=== PATIENT | female | born 1940 | race Caucasian/White ===

== ENCOUNTER → 2023-10-19 13:05 | Outpatient (REF) | payer MEDICARE, OTHER, SELFPAY ==
[2023-10-19 16:23] LABS: Blood Urea Nitrogen 19 mg/dl (7-17); Calcium 9.9 mg/dl (8.4-10.2); Carbon Dioxide 28 mmol/L (22-30); Chloride 100 mmol/L (98-107); Glucose 87 mg/dl (70-99); Potassium 4.2 mmol/L (3.5-5.1); Sodium 136 mmol/L (135-145); eGFR > 60.00
== END ==
LOC: HWRCS 13:05
PROVIDERS: ATTENDING PHYSICIAN Internal Medicine Cardiovascular Disease; FAMILY PHYSICIAN Family Medicine
DX: E87.1 Hypo-osmolality and hyponatremia (principal)
CPT/HCPCS: 36415; 80048; 93306

== ENCOUNTER 2023-10-25 06:01 | Inpatient (IN) | payer MEDICARE, OTHER, SELFPAY ==
--- NOTE | 2023-10-03 08:58 | CM ---
Patient is scheduled for an elective R TKR on 10/25/23. Spoke with patient's prior to surgery via telephone. Introduced role of Orthopedic Navigator. He reports that he and patient live in a multi story home. There are five (2-2-1) steps to
enter and a stair glide on the steps to the second floor (which she uses). She currently requires assistance with the steps to enter/exit her home and getting in and out of the car but otherwise functions independently. She uses a rollator (she has
two) and also has a cane, rolling walker, shower seat and toilet rails. She has had VN services. PCP is Dr. Benitez Zimmerman.
Discussed orthopedic program and post surgical plans. Reviewed anticipated length of stay and that goal is for her to return home at discharge. Also reviewed outpatient PT. He is in agreement with tentative plan and states that he will be home and
can assist patient if needed. She will benefit from VN services. Options and PAC data reviewed; selects VN.
Patient will complete online education.
Plan: Orthopedic Navigator will remain available to assist with the care of patient and will reassess discharge needs after surgery.
[2023-10-05 09:01] VITALS: BMI 23.6
[2023-10-05 10:40] LABS: Hematocrit 39.8 % (37.0-47.0); Hemoglobin 13.9 g/dL (12.0-16.0); Mean Corp Hgb Conc. 34.9 g/dL (33.0-37.0); Mean Corpuscular Volume 80.1 fL (81.0-99.0); Mean Platelet Volume 10.5 fL (7.4-10.4); Platelet Count 297 10^3/uL (130-400); Red Blood Cell Count 4.97 10^6/uL (4.20-5.40); Red Cell Dist. Width 14.1 % (11.5-14.5); White Blood Cell Count 6.1 10^3/uL (4.8-10.8)
[2023-10-05 12:12] LABS: ALT (SGPT) 16 U/L (0-35); AST (SGOT) 25 U/L (14-36); Albumin 4.3 g/dl (3.5-5.0); Alkaline Phosphatase 48 U/L (38-126); Blood Urea Nitrogen 19 mg/dl (7-17); Calcium 9.9 mg/dl (8.4-10.2); Carbon Dioxide 28 mmol/L (22-30); Chloride 92 mmol/L (98-107); Estimated Creatinine Clearance 52 ml/min; Glucose 77 mg/dl (70-99); Potassium 4.1 mmol/L (3.5-5.1); Sodium 125 mmol/L (135-145); Total Bilirubin 0.6 mg/dl (0.2-1.3); eGFR > 60.00
[2023-10-05 12:19] LABS: Glycohemoglobin (HgbA1c) 5.3 % (4.0-5.6)
[2023-10-05 15:07] VITALS: BMI 23.6
--- NOTE | 2023-10-09 12:37 | W.PN.UPDATE ---
Update Note
Progress Note Update
EKG inferior infarct with increased risk stratification and possible symptoms with exertion--will require cardiac clearance.
Na+ 125--fluid restrict and d/c HCTZ-change to Lasix for now and she is advised to review with PCP and cardiology--we will repeat Na+
[2023-10-25] VITALS (12 sets, daily range): BP systolic 112–163; BP diastolic 56–98; PULSE 61; O2SAT 96; BMI 23.6
[2023-10-25] MEDS: NORMOSOL-R 1000 IV (07:07)
[2023-10-25] MEDS: CELEBREX 200 MG PO (07:16)
[2023-10-25] MEDS: TYLENOL 650 MG PO ×4 (07:17→21:29)
[2023-10-25] MEDS: ROXICODONE 5 MG PO ×2 (10:04→14:09)
[2023-10-25] MEDS: NSS 1000 IV (10:05)
--- NOTE | 2023-10-25 10:52 | PTCARENOTE ---
Pt arrived to 2 [facility] s/p R TKR. Pt R knee dressing with small amount of drainage, jadiel wrap over top. IVF infusing, on 2L NC satting 97%. Pt AAOx2, confused with time; patient at bedside states she has difficulty with remembering the year.
Pt and oriented to call ward and room, bed locked and in lowest position, call ward within reach.
[2023-10-25] MEDS: ANCEF 5 IV (17:05)
[2023-10-25] MEDS: SALAGEN 5 MG PO ×2 (17:06→21:34)
[2023-10-25] MEDS: ASPIRIN 325 MG PO (17:06)
[2023-10-25] MEDS: ROXICODONE 2.5 MG PO (19:37)
[2023-10-25] MEDS: SENOKOT 17.1999999999999993 MG PO (21:27)
[2023-10-25] MEDS: DECADRON 4 MG PO (21:27)
[2023-10-25] MEDS: KLONOPIN 1 MG PO (21:27)
[2023-10-25] MEDS: COLACE 100 MG PO (21:28)
[2023-10-25] MEDS: COREG 6.25 MG PO (21:29)
[2023-10-25] MEDS: BACTROBAN 2% OINTMENT 1 APPLIC NASAL (21:34)
[2023-10-25] MEDS: NEURONTIN 300 MG PO (21:35)
[2023-10-25] MEDS: PRAVACHOL 40 MG PO (21:35)
[2023-10-25] MEDS: TRICOR 145 MG PO (21:35)
[2023-10-25] MEDS: DESYREL 50 MG PO (21:36)
[2023-10-25] MEDS: TORADOL 15 MG IV (21:37)
[2023-10-26] MEDS: ANCEF 5 IV (00:32)
[2023-10-26] MEDS: TYLENOL 650 MG PO ×5 (00:34→20:13)
[2023-10-26] MEDS: TYLENOL PO (04:09)
--- NOTE | 2023-10-26 06:11 | PTCARENOTE ---
Found pt awake and confused pulling down aquacell dressing. large amount of drainage noted. reinforced dressiing with ABD and medipore tape. education provided to pt and pt acknowledged.
[2023-10-26 06:30] LABS: Blood Urea Nitrogen 22 mg/dl (7-17); Calcium 8.7 mg/dl (8.4-10.2); Carbon Dioxide 22 mmol/L (22-30); Chloride 101 mmol/L (98-107); Estimated Creatinine Clearance 41 ml/min; Glucose 114 mg/dl (70-99); Potassium 4.2 mmol/L (3.5-5.1); Sodium 128 mmol/L (135-145); eGFR > 60.00
--- NOTE | 2023-10-26 07:43 | W.PN.UPDATE ---
Update Note
Progress Note Update
I came to see pt but she was sleeping soundly so I did not wake her.
[2023-10-26 08:10] VITALS: BP 101/43
[2023-10-26] MEDS: CELEBREX 200 MG PO (08:24)
[2023-10-26] MEDS: ASPIRIN 325 MG PO (08:25)
[2023-10-26] MEDS: SALAGEN 5 MG PO ×3 (08:25→21:38)
[2023-10-26] MEDS: SENOKOT 17.1999999999999993 MG PO ×2 (08:25→20:13)
[2023-10-26] MEDS: KLONOPIN 1 MG PO ×2 (08:25→20:13)
[2023-10-26] MEDS: DECADRON 4 MG PO ×2 (08:25→20:11)
[2023-10-26] MEDS: COLACE 100 MG PO ×2 (08:25→20:11)
--- NOTE | 2023-10-26 08:25 | CM ---
Addendum entered by Letty Torres 10/26/23 11:41:
Patient worked with PT and OT. Recommendation, at this time, is for SNF rehab. Met with patient and at bedside to discuss. They are in agreement. Options and PAC data reviewed. requested referrals to [facility] and [facility].
Referral and completed PASRR sent to [facility] and [facility] through [employer].
Message was received from Liz at [facility] stating that they can offer a bed.
Original Note:
Reviewed chart and held rounds with PT, OT and nursing. Patient admitted as planned for elective R TKR. Met with patient and her at bedside. Confirmed information previously obtained for assessment. Also discussed discharge plans. The plan,
at this time, is for patient to return home at discharge. Her will be able to assist if needed. Reviewed VN services including start of care (tentatively 10/26), services to be ordered (PT, OT, SN) and frequency/duration of services. Options
list provided and PAC data reviewed. They select VN.
Patient has a rolling walker, shower seat and a cane at home. She will need a commode issued if returning home at discharge.
VN referral was completed and sent to [facility] through [employer] with request for start of care on 10/26. Confirmation received of their ability to accept case. route delivery clerk to fax discharge instructions to [facility] when complete.
Patient will use [facility] pharmacy for discharge prescriptions.
[2023-10-26] MEDS: COREG 6.25 MG PO ×2 (08:26→21:37)
[2023-10-26] MEDS: BACTROBAN 2% OINTMENT 1 APPLIC NASAL ×2 (08:26→20:10)
[2023-10-26] MEDS: TORADOL 15 MG IV ×2 (08:28→20:13)
[2023-10-26] MEDS: ROXICODONE 5 MG PO (08:34)
[2023-10-26 10:21] VITALS: BP 135/82; BP 140/56; PULSE 62; O2SAT 100
[2023-10-26 11:33] VITALS: BP 138/52; PULSE 59; O2SAT 99
--- NOTE | 2023-10-26 11:36 | W.PN.ORTHO ---
Today's Communication / Plan
-
d/c to SNF when stable due to exacerbation of cognitive and functional deficits due to metabolic encephalopathy secondary to anesthesia and pain meds
Assessment
.
Distal Motor Intact: Yes
Dressing:
Clean, dry and intact.
Assessment:
Hyponatremia/hypotension--NSS IVF, + Midodrine x1 dose
Plan
.
Surgery / Date: R EDILBERTO Arteaga 10/25/23
DVT Prophylaxis: Aspirin
Activity:
Out of bed.
PT/OT
Discharge Plan: SNF
Subjective
.
.:
Patient resting comfortably.
Vital Signs and Labs
.
Vital Signs and Labs:
Lab Results
10/05/23 08:41
10/26/23 04:38
Temp Pulse Resp BP Pulse Ox
97.7 F 59 17 101/43 93
10/26/23 08:10 10/26/23 08:10 10/26/23 08:10 10/26/23 08:10 10/26/23 08:19
Non-invasive Hgb result: 11.1
Physical Exam
-
HEENT: No pallor, cyanosis, or jaundice. Throat clear.
NECK: Supple. No JVD.
RESPIRATORY: Lungs clear to auscultation.
CVS: S1, S2 normal. RRR.� No murmur, rub or gallop.
ABDOMEN: Soft, non-tender. No distension. BS+/normal.
EXTREMITIES: strength equal, no calf pain with palpation
BOOT MAKER: AOx3. No focal deficits. patternmaker plastics grossly intact
-cognitive and functional deficits
[2023-10-26] MEDS: ProAmatine 5 MG PO (11:59)
[2023-10-26] MEDS: NSS 500 IV (12:00)
[2023-10-26 15:35] VITALS: BP 138/78
[2023-10-26 19:34] VITALS: BP 125/55
[2023-10-26] MEDS: NEURONTIN 300 MG PO (21:38)
[2023-10-26] MEDS: PRAVACHOL 40 MG PO (21:38)
[2023-10-26] MEDS: DESYREL 50 MG PO (21:39)
[2023-10-26] MEDS: TRICOR 145 MG PO (21:39)
[2023-10-26 23:40] VITALS: BP 125/50
[2023-10-27] MEDS: TYLENOL PO (00:53)
[2023-10-27] MEDS: TYLENOL 650 MG PO ×5 (03:29→21:39)
[2023-10-27 07:43] VITALS: BP 122/62
--- NOTE | 2023-10-27 08:20 | CM ---
Addendum entered by Letty Torres 10/27/23 11:28:
Met with patient, , son and [id number] after therapy. Discussed continued recommendation for SNF rehab and also that call back has no been received from [facility]. They are in agreement with [facility].
Spoke with Liz at [facility]. She confirms their ability to accept patient on Monday, 10/27. Weekend spring encaser to call Liz ([phone]) to confirm admission.
Report: [phone]

Patient will need stretcher transport due to baseline cognitive deficits; medical necessity and transport forms completed and on chart.
Original Note:
Reviewed chart and held rounds with PT, OT and nursing. Met with patient at bedside. Discussed discharge plans. The recommendation continues to be for patient to go to a SNF for rehab. Patient and have selected [facility] and [facility].
[facility] is able to offer a bed. Still waiting for response from [facility]. Will follow up with admissions today.
Precert is not required for transfer to SNF.
[2023-10-27] MEDS: COLACE 100 MG PO ×2 (09:01→21:38)
[2023-10-27] MEDS: COREG 6.25 MG PO ×2 (09:02→21:39)
[2023-10-27] MEDS: SALAGEN 5 MG PO ×3 (09:02→21:41)
[2023-10-27] MEDS: SENOKOT 17.1999999999999993 MG PO ×2 (09:02→21:37)
[2023-10-27] MEDS: DECADRON 4 MG PO ×2 (09:03→21:38)
[2023-10-27] MEDS: KLONOPIN 1 MG PO ×2 (09:03→21:39)
[2023-10-27] MEDS: CELEBREX 200 MG PO (09:03)
[2023-10-27] MEDS: ASPIRIN 325 MG PO (09:03)
[2023-10-27 10:24] VITALS: BP 123/48; BP 126/49; PULSE 76; O2SAT 98
[2023-10-27 11:28] VITALS: BP 120/50; PULSE 70; O2SAT 99
--- NOTE | 2023-10-27 12:03 | W.PN.ORTHO ---
Today's Communication / Plan
-
d/c to SNF when stable due to exacerbation of cognitive and functional deficits due to anesthesia and pain meds
Assessment
.
Distal Motor Intact: Yes
Dressing:
Clean, dry and intact.
Assessment:
Hyponatremia/hypotension--NSS IVF, + Midodrine x1 dose-BP improved-recheck Na+ level
Plan
.
Surgery / Date: R EDILBERTO Arteaga 10/25/23
DVT Prophylaxis: Aspirin
Activity:
Out of bed.
PT/OT
Discharge Plan: SNF
Subjective
.
.:
Patient resting comfortably.
Vital Signs and Labs
.
Vital Signs and Labs:
Lab Results
10/05/23 08:41
10/26/23 04:38
Temp Pulse Resp BP Pulse Ox
97.7 F 61 16 122/62 96
10/27/23 07:43 10/27/23 07:43 10/27/23 07:43 10/27/23 07:43 10/27/23 07:43
Non-invasive Hgb result: 11.2
Physical Exam
-
HEENT: No pallor, cyanosis, or jaundice. Throat clear.
NECK: Supple. No JVD.
RESPIRATORY: Lungs clear to auscultation.
CVS: S1, S2 normal. RRR.� No murmur, rub or gallop.
ABDOMEN: Soft, non-tender. No distension. BS+/normal.
EXTREMITIES: strength equal, no calf pain with palpation
LEAD BI DEVELOPER: AOx3. No focal deficits. paralegal supervisor grossly intact
[2023-10-27 13:16] LABS: Sodium 129 mmol/L (135-145)
[2023-10-27 14:53] VITALS: BP 131/63; PULSE 62
--- NOTE | 2023-10-27 14:55 | PN.CDI ---
CDI
- -
CDI:
Physician Documentation Request
Admit Date: 10/25/23 06:01
Dear Doctor Chandler,
Patient admitted with right knee osteoarthritis s/p right total knee arthroplasty.
10/26 PN, 'd/c to SNF when stable due to exacerbation of cognitive and functional deficits due to anesthesia and pain meds.'
10/25 PCN,'Found pt awake and confused pulling down Aquacel dressing.'
10/25 CM note, 'The plan, at this time, is for patient to return home at discharge....Recommendation, at this time, is for SNF rehab.
Based on the above, please clarify in the Progress Notes and Discharge Summary which, if any of the following, is the most likely etiology of the confusion:
Toxic metabolic encephalopathy due to anesthesia and pain medication.
Metabolic encephalopathy due to anesthesia and pain medication
Other
Use of terms such as suspected, likely, concern for, or probable (associated with a specific diagnosis that is being evaluated, monitored, or treated as if it exists) are acceptable and can be coded in the inpatient setting, when documented at the
time of discharge.
Thank you,
Sheron WADDELL,RN,CCDS
CDI Specialist
Available via [employer] text
Please use your independent medical judgment in providing your response.
[2023-10-27 15:50] VITALS: BP 131/63
[2023-10-27] MEDS: DESYREL 50 MG PO (21:39)
[2023-10-27] MEDS: NEURONTIN 300 MG PO (21:40)
[2023-10-27] MEDS: PRAVACHOL 40 MG PO (21:40)
[2023-10-27] MEDS: TRICOR 145 MG PO (21:41)
[2023-10-27] MEDS: ROXICODONE 5 MG PO (22:09)
[2023-10-27 23:21] VITALS: BP 144/65
[2023-10-28] MEDS: TYLENOL PO
[2023-10-28] MEDS: TYLENOL 650 MG PO ×5 (04:08→21:21)
[2023-10-28 07:09] VITALS: BP 154/72
--- NOTE | 2023-10-28 08:54 | W.PN.ORTHO ---
Today's Communication / Plan
-
Patient doing/feeling well this AM. More cognitively aware in my opinion- answers all questions appropriately
Rechecking Na this AM, as yesterday was 129
Dispo plan is SNF ([facility] vs [facility]) when medically stable, appreciate CM
Continue ASA 325mg x 4 weeks for DVT prophylaxiss, then can resume 81mg
WBAT RLE on walker
PT/OT
Dressing to remain 7-10 days
Please only use narcotics if absolutley necessary to avoid delirium
Will follow- if NA normalizes will give OK for D/c
Assessment
.
Distal Motor Intact: Yes
Dressing:
Clean, dry and intact. Aquacel in place right knee
Assessment:
POD#3 Right TKA
Overall doing/feeling well. More cognitively aware this AM.
DNVI RLE
Plan
.
Surgery / Date: Right TKA November 09 (Chandler)
DVT Prophylaxis: Aspirin
Activity:
Out of bed. WBAT on walker
PT/OT
Discharge Plan: SNF
Discharge Information:
[facility] vs. [facility]
Subjective
.
.:
Patient resting comfortably. Mild pain right knee
Vital Signs and Labs
.
Vital Signs and Labs:
Lab Results
10/05/23 08:41
Temp Pulse Resp BP Pulse Ox
98.3 F 69 17 154/72 94
10/28/23 07:09 10/28/23 07:09 10/28/23 07:09 10/28/23 07:09 10/28/23 07:09
Non-invasive Hgb result: 11.2
[2023-10-28] MEDS: SALAGEN 5 MG PO ×3 (10:31→22:53)
[2023-10-28] MEDS: COLACE PO ×3 (10:31→19:22)
[2023-10-28] MEDS: SENOKOT PO ×3 (10:32→19:22)
[2023-10-28] MEDS: ASPIRIN 325 MG PO (10:32)
[2023-10-28] MEDS: KLONOPIN 1 MG PO ×2 (10:32→21:21)
[2023-10-28] MEDS: DECADRON 4 MG PO (10:32)
[2023-10-28] MEDS: CELEBREX 200 MG PO (10:32)
[2023-10-28] MEDS: COREG 6.25 MG PO ×2 (10:32→21:21)
[2023-10-28 11:53] LABS: ALT (SGPT) 12 U/L (0-35); AST (SGOT) 20 U/L (14-36); Albumin 3.2 g/dl (3.5-5.0); Alkaline Phosphatase 44 U/L (38-126); Blood Urea Nitrogen 29 mg/dl (7-17); Calcium 9.2 mg/dl (8.4-10.2); Carbon Dioxide 29 mmol/L (22-30); Chloride 99 mmol/L (98-107); Estimated Creatinine Clearance 36 ml/min; Glucose 84 mg/dl (70-99); Potassium 4.6 mmol/L (3.5-5.1); Sodium 130 mmol/L (135-145); Total Bilirubin 0.5 mg/dl (0.2-1.3); Total Protein 5.8 g/dl (6.3-8.2)
[2023-10-28 14:10] VITALS: BP 121/75; PULSE 75
[2023-10-28 15:37] VITALS: BP 121/75
[2023-10-28] MEDS: DESENEX/MITRAZOL/ZEASORB 1 APPLIC TOPICAL ×2 (17:19→21:22)
[2023-10-28] MEDS: DESYREL 50 MG PO (21:21)
[2023-10-28] MEDS: PRAVACHOL 40 MG PO (21:21)
[2023-10-28] MEDS: TRICOR 145 MG PO (21:22)
[2023-10-28] MEDS: NEURONTIN 300 MG PO ×2 (21:22)
[2023-10-29 00:13] VITALS: BP 120/65
[2023-10-29] MEDS: TYLENOL PO ×2 (00:26→04:27)
[2023-10-29 07:28] LABS: ALT (SGPT) 11 U/L (0-35); AST (SGOT) 17 U/L (14-36); Albumin 2.8 g/dl (3.5-5.0); Alkaline Phosphatase 42 U/L (38-126); Blood Urea Nitrogen 32 mg/dl (7-17); Calcium 9.1 mg/dl (8.4-10.2); Carbon Dioxide 27 mmol/L (22-30); Chloride 103 mmol/L (98-107); Estimated Creatinine Clearance 33 ml/min; Glucose 83 mg/dl (70-99); Potassium 4.8 mmol/L (3.5-5.1); Sodium 132 mmol/L (135-145); Total Bilirubin 0.4 mg/dl (0.2-1.3); Total Protein 5.2 g/dl (6.3-8.2); eGFR 50.48
[2023-10-29 07:35] VITALS: BP 141/61
[2023-10-29] MEDS: CELEBREX 200 MG PO (07:54)
[2023-10-29] MEDS: ASPIRIN 325 MG PO (07:55)
[2023-10-29] MEDS: SENOKOT PO (07:55)
[2023-10-29] MEDS: KLONOPIN 1 MG PO (07:55)
[2023-10-29] MEDS: TYLENOL 650 MG PO (07:55)
[2023-10-29] MEDS: COREG 6.25 MG PO (07:55)
[2023-10-29] MEDS: SALAGEN 5 MG PO (07:55)
[2023-10-29] MEDS: COLACE PO (07:55)
[2023-10-29] MEDS: DESENEX/MITRAZOL/ZEASORB 1 APPLIC TOPICAL (07:56)
--- NOTE | 2023-10-29 09:21 | W.PN.ORTHO ---
Today's Communication / Plan
-
Patient doing/feeling well this AM. Carried on with very appropriate and directed convo this AM
Na up to 132
Dispo plan is SNF ([facility]) when medically stable (today?), appreciate CM
Continue ASA 325mg x 4 weeks for DVT prophylaxiss, then can resume 81mg
WBAT RLE on walker
PT/OT
Dressing to remain 7-10 days, was changed this AM
Please only use narcotics if absolutely necessary to avoid delirium
Follow up in 2 weeks for staple removal
Assessment
.
Distal Motor Intact: Yes
Dressing:
Clean, dry and intact. Aquacel saturated
Assessment:
POD#4 Right TKA
Overall doing well
Calf soft, nontender
Plan
.
Surgery / Date: Right TKA November 09 (Chandler)
DVT Prophylaxis: Aspirin
Activity:
Out of bed. WBAT RLE on walker
PT/OT
Discharge Plan: SNF
Discharge Information:
[facility]
Subjective
.
.:
Patient seated bedside with breakfast. Carried on with very appropriate conversation this AM
Vital Signs and Labs
.
Vital Signs and Labs:
Lab Results
10/05/23 08:41
10/29/23 06:30
Temp Pulse Resp BP Pulse Ox
98.5 F 61 18 141/61 96
10/29/23 07:35 10/29/23 07:35 10/29/23 07:35 10/29/23 07:35 10/29/23 07:35
Non-invasive Hgb result: 11.2
--- NOTE | 2023-10-29 09:25 | W.DS.TRANS ---
DC Summary - Executive Sales Assistant
-
Discharge Instructions:
Sleep Apnea Risk Low
Discharge Diagnosis/Procedures Right knee OA s/p TKA
Diet No restrictions
Activity With assistance,As tolerated,With Walker
Driving Restrictions Not until seen by your Dr
Bathing Restrictions OK to Shower
Wound Care Dressing to remain 7-10 days
Instructions:
Stand-Alone Forms: Total Hip/Knee Replacement D/C
Changes to Home Medications: No
Discharge Medications:
DC Medications w/original date entered in [employer]
Salonpas (lidocaine) 1 unit topical PRN PRN pain 10/03/23
aspirin 81 mg tablet 81 mg PO DAILY Blood Clot Prevention/Tx 10/03/23
carvedilol 12.5 mg tablet 6.25 mg PO BID Blood Pressure 10/03/23
cholecalciferol (vitamin D3) 25 mcg (1,000 unit) tablet (Vitamin D3) 25 mcg PO DAILY Supplement 10/03/23
clonazepam 1 mg tablet 1 mg PO TID anxiety 10/03/23
fenofibrate 1 tab PO HS High Cholesterol 10/03/23
naproxen 500 mg tablet 500 mg PO PRN PRN pain 10/03/23
pilocarpine HCl 5 mg tablet 5 mg PO TID secretions 10/03/23
pravastatin 40 mg tablet 40 mg PO HS High Cholesterol 10/03/23
trazodone 50 mg tablet 50 mg PO HS sleep 10/03/23
turmeric 500 mg PO DAILY Supplement 10/03/23
mupirocin 2 % topical ointment 1 applic topical BID infection prevention #1 tube 10/05/23
nystatin 100,000 unit/gram topical powder 1 applic topical BID candidal #30 grams 10/05/23
furosemide 20 mg tablet 20 mg PO DAILY #30 tabs 10/09/23
aspirin 325 mg tablet 325 mg PO DAILY Blood clot prevention/tx #30 tabs 10/28/23
celecoxib 200 mg capsule 200 mg PO DAILY Pain #30 caps 10/28/23
docusate sodium 100 mg capsule 100 mg PO BID Constipation #30 caps 10/28/23
gabapentin 300 mg capsule 300 mg PO HS Pain #30 caps 10/28/23
oxycodone 5 mg tablet 5 mg PO Q4HPRN PRN moderate pain #30 tabs 10/28/23
Home Medication Changes
Pending Results: No
--- NOTE | 2023-10-29 09:35 | CM ---
Reviewed chart notes. Patient for discharge today to [facility].
Call report to : [phone]
Fax report to: [phone]
[2023-10-29 11:30] VITALS: BP 134/69
== END 2023-10-29 12:51 | DRG 469 ==
LOC: 2 SOUTH 06:01
PROVIDERS: Physician Assistant Medical; Physician Assistant Surgical; ADMITTING PHYSICIAN Orthopaedic Surgery; FAMILY PHYSICIAN Family Medicine
PROC: 0SRC0J9 Replacement of Right Knee Joint with Synthetic Substitute, Cemented, Open Approach (ICD-10-PCS; 2023-10-25)
DX: M17.11 Unilateral primary osteoarthritis, right knee (principal); G92.8 Other toxic encephalopathy; E87.1 Hypo-osmolality and hyponatremia; I10 Essential (primary) hypertension; E78.5 Hyperlipidemia, unspecified; F41.9 Anxiety disorder, unspecified; C67.9 Malignant neoplasm of bladder, unspecified; M81.0 Age-related osteoporosis without current pathological fracture; R91.8 Other nonspecific abnormal finding of lung field; G47.00 Insomnia, unspecified; R41.89 Other symptoms and signs involving cognitive functions and awareness; I95.81 Postprocedural hypotension; T40.2X5A Adverse effect of other opioids, initial encounter; Y92.239 Unspecified place in hospital as the place of occurrence of the external cause; Z87.891 Personal history of nicotine dependence
CPT/HCPCS: 36415; 73560; 80048; 80053; 83036; 84295; 85027; 87070; 93005; 97110; 97116; 97162; 97167; 97530; 97535; C1713; C1776

== ENCOUNTER 2023-11-15 23:08 | Inpatient (IN) | payer MEDICARE, OTHER, SELFPAY ==
[2023-11-15 20:43] VITALS: BP 155/64
[2023-11-15 20:47] VITALS: BP 155/64
[2023-11-15 20:50] VITALS: BMI 23.6
[2023-11-15 21:17] LABS: % Basophils 0.9 % (0-2); % Eosinophils 5.8 % (0-6); % Immature Granulocytes 0.2 % (0-0.5); % Lymphocytes 38.4 % (20.5-51.1); % Monocytes 12.1 % (1.7-9.3); % Neutrophils 42.6 % (42.2-75.2); Absolute Basophils 0.1 10^3/uL (0-0.2); Absolute Eosinophils 0.3 10^3/uL (0-0.7); Absolute Lymphocytes 2.1 10^3/uL (1.2-3.4); Absolute Monocytes 0.7 10^3/uL (0.1-0.6); Absolute Neutrophils 2.3 10^3/uL (1.4-6.5); Hematocrit 25.5 % (37.0-47.0); Hemoglobin 8.6 g/dL (12.0-16.0); Mean Corp Hgb Conc. 33.7 g/dL (33.0-37.0); Mean Corpuscular Hgb 28.4 pg (27.0-31.0); Mean Corpuscular Volume 84.2 fL (81.0-99.0); Mean Platelet Volume 9.5 fL (7.4-10.4); Nucleated Red Blood Cells % 0 %; Platelet Count 400 10^3/uL (130-400); Red Blood Cell Count 3.03 10^6/uL (4.20-5.40); Red Cell Dist. Width 18.6 % (11.5-14.5); White Blood Cell Count 5.4 10^3/uL (4.8-10.8)
[2023-11-15 21:29] LABS: Lactic Acid 0.7 mmol/L (0.7-2.0)
[2023-11-15 21:33] LABS: ALT (SGPT) < 10 U/L (0-35); AST (SGOT) 19 U/L (14-36); Alkaline Phosphatase 60 U/L (38-126); Blood Urea Nitrogen 12 mg/dl (7-17); Carbon Dioxide 26 mmol/L (22-30); Chloride 97 mmol/L (98-107); Estimated Creatinine Clearance 61 ml/min; Glucose 89 mg/dl (70-99); Potassium 3.9 mmol/L (3.5-5.1); Sodium 129 mmol/L (135-145); Total Bilirubin 0.6 mg/dl (0.2-1.3); Total Protein 5.8 g/dl (6.3-8.2); eGFR > 60.00
--- NOTE | 2023-11-15 21:50 | ED.GENMED ---
History of Present Illness
General
Chief Complaint: Musculo-Skeletal Complaint
Source: patient
Exam Limitations: none
Time Seen by Provider: 11/15/23 20:49
Travel History
Have you had any contact with someone who has COVID-19?: No
Do you have any symptoms of coronavirus? Fever > 100 degrees, chills, cough, shortness of breath, sore throat, loss of taste or smell, muscle aches, or headache?: No
History of Present Illness
History of Present Illness:
This is a 83 year old female that comes in with c/o right knee infection. States that she was told to come to the ER by Dr. Arteaga. States that she had a right knee replacement on October 24. states that yesterday they were seen in the office and her
incision has been draining since the surgery. States that he had her straighten her knee and it just poured out. States that he got a vile of the fluid and it was sent for culture. States that she was called and told to come to the ER as there is
infection and he will take her to the OR on Monday and clean this out. Denies any fever, chills, chest pain, SOB, abd pain, nausea, vomiting, diarrhea, headache, dizziness, urinary burning.
Past History
Past History
ED Past Medical History: Cancer (Bladder CA), HTN, Psychiatric (Depression, panic disorder) and Other (Numbness)
ED Past Surgical History: Gynecological (Ovarian cyst, Uterine fibroid removed, oophorectomy), Orthopedic (Spacer in back. right knee replacement), Tonsilectomy, Urological (Bladder surgery) and Other (cataracts, Left biopsy)
Social History
Tobacco: Former smoker
Alcohol: None
Personal:
Living: with family
Review of Systems
Review of Systems
All Other Systems: ROS reviewed and negative except as documented in HPI and ROS
Constitutional: Reports no symptoms; Denies fever or chills
EENT: Reports no symptoms
Respiratory: Reports no symptoms; Denies cough or trouble breathing
Cardiac: Reports no symptoms; Denies chest pain
ABD/GI: Reports no symptoms; Denies abdominal pain, nausea, vomiting or diarrhea
: Reports no symptoms; Denies dysuria, frequency or urgency
Musculoskeletal: Reports no symptoms
Skin: Reports other (Redness right knee with drainage)
Neurological: Reports no symptoms; Denies dizzy or headache
Psychiatric: Reports no symptoms
Phy Exam
General Physical Exam
General Presentation: no apparent distress
General age: appears stated age
General Skin: warm and dry
General Habitus: elderly
General Mental: alert
General Hydration: appears well hydrated
ENT Exam
ENT Exam: TM's normal, pharynx normal and neck supple
Eye Exam
Eye Exam: EOMI
Cardiovascular Exam
Cardiovascular Exam: regular rate/rhythm and normal peripheral pulses
Pulmonary Exam
Pulmonary Exam: lungs clear, no respiratory distress, no rales, chest non tender, no crackles, no rhonchi, no wheezing and no cough
Gastrointestinal Exam
Gastrointestinal Exam: normal bowel sounds, non tender, soft, no organomegaly, no pulsatile mass and non distended
Musculoskeletal Exam
Musculoskeletal Exam: other (right leg swelling +2 pitting edema of lower leg, Redness around the right knee incision with drainage noted)
Skin Exam
Skin Exam: normal color, warm/dry, no petechia and redness (Right knee)
Psychiatric Exam
Psychiatric Exam: normal mood/affect
Course
Orders/Labs/Results
Orders:
Orders
11/15/23 21:07
Complete Blood Count/With Diff Urgent
Comprehensive Metabolic Panel Urgent
Lactic Acid Q4H
Comment: ON ICE, CANCEL 2ND ORDER IF FIRST LACTIC ACID LEVEL <2
Blood Culture Q30M
RAVEN Source: Blood/Venous
Specimen Description:
Comment: FROM 2 SEPARATE SITES
Blood Culture Q30M
RAVEN Source: Blood/Venous
Specimen Description:
Comment: FROM 2 SEPARATE SITES
11/15/23 21:49
CR Knee - Right 1 Or 2 Views Routine
Comment:
Reason For Exam: knee infection
11/15/23 21:53
Type+Screen Routine
PT/INR [Prothrombin Time] Routine
11/15/23 22:04
Consult Orthopedic [ORTHOPEDIC CONSULT] Urgent
Consulting Provider: Markus Arteaga
Was physician already notified: Yes
11/16/23 01:15
Lactic Acid Q4H
Comment: ON ICE, CANCEL 2ND ORDER IF FIRST LACTIC ACID LEVEL <2
Abnormal Lab Results
11/15/23
21:07
RBC 3.03 L 10^6/uL
(4.20-5.40)
Hgb 8.6 L g/dL
(12.0-16.0)
Hct 25.5 L %
(37.0-47.0)
RDW 18.6 H %
(11.5-14.5)
Absolute Monos (auto) 0.7 H 10^3/uL
(0.1-0.6)
Monocytes % 12.1 H %
(1.7-9.3)
Sodium 129 L mmol/L
(135-145)
Chloride 97 L mmol/L
(98-107)
Total Protein 5.8 L g/dl
(6.3-8.2)
Albumin 3.0 L g/dl
(3.5-5.0)
11/15/23 21:07
11/15/23 21:07
H/H low. hyponatremia, Total protein slightly low. Albumin low. LACTIC 0.7
Vital Signs
Initial and Last Documented VS:
Initial Vital Signs
Temp Pulse Resp BP Pulse Ox
98.2 F 73 18 155/64 99
11/15/23 20:43 11/15/23 20:43 11/15/23 20:43 11/15/23 20:43 11/15/23 20:43
Last Documented Vital Signs
Temp Pulse Resp BP Pulse Ox
98.2 F 71 16 139/69 98
11/15/23 20:43 11/15/23 22:07 11/15/23 22:07 11/15/23 22:07 11/15/23 22:07
MDM/Problems Addressed
Differential Diagnosis Includes:
right knee infection,
MDM/Problems Addressed:
This is a 83 year old female that comes in with c/o right knee infection. States that she was seen in Dr. Arteaga office yesterday and she was told to straighten her knee and the fluid just poured out. States that he was able to collect a vile and
sent for culture. Patient was told to come to the ER for admission and she will go to the OR on Monday to have the knee cleaned out.
Will get labs and admit
Chronic conditions affecting care:
NA
Acute Exacerbation and/or Progression of Chronic Illness:
NA
*Critical Care Note
Total Time (30-74mins, 75-104mins- exclusive of procedures): Not Applicable
ED Attending Note
-
Portions of this chart may have been created with voice recognition software.� Occasional wrong word or��sound alike� substitutions may have occurred due to the inherent limitations of voice recognition software.
Discharge Plan
Departure
Patient Disposition: Admit
Date of Disposition: 11/15/23
Time of Disposition: 22:16
Admit to: Med/Surg
Presentation/result/management discussed w/ accepting MD/DO: Hospitalist
Patient with high blood pressure during this ER visit?: Yes
Condition: Good
Discharge Problem:
RIGHT KNEE SURGICAL INFECTION
Prescriptions:
No Action
pilocarpine HCl 5 mg Tablet
5 mg PO TID
clonazepam 1 mg Tablet
1 mg PO DAILY
naproxen 500 mg Tablet
500 mg PO Q12H PRN (Reason: mild pain/osteoarthritis)
Hold Instructions: Resume on 11/15/23. After celebrex finished
fenofibrate nanocrystallized 145 mg Tablet
145 mg PO HS Qty: 0
cholecalciferol (vitamin D3) [Vitamin D3] 25 mcg (1,000 unit) Tablet
25 mcg PO DAILY
turmeric root extract 500 mg Tablet
500 mg PO DAILY Qty: 0
nystatin 100,000 unit/gram powder
1 applic topical BID Qty: 30 0RF
Patient Comments:
used it on 10/23/23
Rx Instructions:
ING folds-bilateral
furosemide 20 mg tablet
20 mg PO DAILY Qty: 30 1RF
Patient Comments:
took 10/24/23
aspirin 325 mg Tablet
325 mg PO DAILY Qty: 30 0RF
Patient Comments:
11/15/2023: from 11/02/23 to 11/26/23 then change to aspirin 81mg po daily
docusate sodium 100 mg Capsule
100 mg PO BID Qty: 30 0RF
gabapentin 300 mg Capsule
300 mg PO HS Qty: 30 0RF
sennosides [senna] 8.6 mg Tablet
8.6 mg PO BID
carvedilol 6.25 mg Tablet
6.25 mg PO BID
atorvastatin 10 mg Tablet
10 mg PO HS
acetaminophen 500 mg Tablet
500 mg PO BID
acetaminophen 500 mg Tablet
1,000 mg PO Q8H PRN (Reason: mild pain)
cefadroxil 500 mg Capsule
500 mg PO BID
meloxicam 7.5 mg Tablet
7.5 mg PO DAILY
magnesium hydroxide [Milk of Magnesia] 400 mg/5 mL Suspension
30 ml PO HS PRN (Reason: if no bm in 3 days)
bisacodyl [Dulcolax (bisacodyl)] 10 mg Suppository
10 mg WV DAILY PRN (Reason: if no results for MOM)
trolamine salicylate [Aspercreme] 10 % Cream
1 applic TOPICAL BID
Patient Comments:
apply to Rt Shoulder and back
Referrals:
Omar Murry MD [Family Provider] -
Interventions
Interventions:
*Risk Screen - Suicide Last Done: 11/15/23 20:51
*General Assessment Last Done: 11/15/23 20:51
*Neglect/Abuse Screening Last Done: 11/15/23 20:51
ED- Fall Risk Assessment Last Done: 11/15/23 22:09
*ED COVID-19 Vaccine History Last Done: 11/15/23 20:51
ED-Musculoskeletal Assessment Last Done: 11/15/23 20:52
Discharge Date and Time
Print Language: SYRIAC
[2023-11-15 22:07] VITALS: BP 139/69
[2023-11-15 22:13] LABS: INR 1.14; PT 14.5 Sec (11.4-14.6)
--- NOTE | 2023-11-15 22:43 | W.PN.UPDATE ---
Update Note
Progress Note Update
This is an addendum to the H&P written by SYDNEY Tyson on 11/15/2023.� Patient seen and examined independently with PA.
83-year-old female past medical history of osteoarthritis, hypertension, hyperlipidemia, anxiety, bladder cancer status post TURBT, presenting for right knee infection.� She recently underwent right knee replacement on October [address] Arteaga.�
Incision has been draining since the surgery.� Yesterday she was seen in the office and had culture performed.� She was told to come to the emergency room.� No fevers or chills.
Will start cefazolin.� N.p.o. past midnight for potential washout tomorrow as per Ortho.� ID consulted.
Labs show significant drop in hemoglobin from 13.9 preop to 8.6.� Subcutaneous heparin for DVT prophylaxis.� Hold Lasix and gentle IV fluids.
--- NOTE | 2023-11-15 22:46 | HPS.HSE ---
Family Physician
-
Family Physician: mOar Murry
Chief Complaint
-
Right Knee Infection
History of Present Illness
This is an 83 year old female with past medical history of hypertension, hyperlipidemia and anxiety who presents to the emergency department with right knee surgical incision drainage. Patient had right total knee replacement on 10/25/2023. Patient
reports that she has had yellow drainage from the incision site since the procedure. She reports she followed up with outpatient ortho who removed leticia and send a culture of the fluid. The results were obtained by the ortho office who called the
patient and instructed her to report to the emergency department for IV antibiotics today. Patient reports right knee tenderness and right lower extremity swelling since the procedure. Patient denies fever, chills, chest pain, palpitations, nausea,
vomiting, and abdominal pain.
Medical History
Past Medical History
Past Medical History: Reports Other
Additional Past Medical History:
Essential Hypertension
Hyperlipidemia
Anxiety
L1 Vertebral Fracture with Indwelling Spacer
Bladder Cancer s/p TURBT
Past Surgical History: Reports Other
Additional Past Surgical History:
Right Total Knee Replacement
Transurethral Resection of Bladder Tumor
Oophorectomy
Lumbar Spacer
Cataract Surgery
Breast Biopsy
Social History
Tobacco: Non-smoker
Alcohol: Occasional (Only while on vacation)
Family History
Family History: Not pertinent
Allergies / Home Medications
Allergies reflects when Allergies were last updated in [facility].
Home Medications with original date entered in [facility]
Allergy/Medication List:
Allergies
Allergy/AdvReac Type Severity Reaction Status Date / Time
No Known Allergies Allergy Verified 11/15/23 20:43
Home Medications
cholecalciferol (vitamin D3) 25 mcg (1,000 unit) tablet (Vitamin D3) 25 mcg PO DAILY Supplement 10/03/23
clonazepam 1 mg tablet 1 mg PO DAILY anxiety 10/03/23
fenofibrate nanocrystallized 145 mg tablet 145 mg PO HS High Cholesterol ##0 10/03/23
naproxen 500 mg tablet 500 mg PO Q12H PRN mild pain/osteoarthritis 10/03/23
pilocarpine HCl 5 mg tablet 5 mg PO TID secretions 10/03/23
turmeric root extract 500 mg tablet 500 mg PO DAILY Supplement ##0 10/03/23
nystatin 100,000 unit/gram topical powder 1 applic topical BID candidal #30 grams 10/05/23
furosemide 20 mg tablet 20 mg PO DAILY #30 tabs 10/09/23
aspirin 325 mg tablet 325 mg PO DAILY Blood clot prevention/tx #30 tabs 10/28/23
docusate sodium 100 mg capsule 100 mg PO BID Constipation #30 caps 10/28/23
gabapentin 300 mg capsule 300 mg PO HS Pain #30 caps 10/28/23
acetaminophen 500 mg tablet 1,000 mg PO Q8H PRN mild pain 11/15/23
acetaminophen 500 mg tablet 500 mg PO BID 11/15/23
atorvastatin 10 mg tablet 10 mg PO HS 11/15/23
bisacodyl 10 mg rectal suppository (Dulcolax (bisacodyl)) 10 mg OR DAILY PRN if no results for MOM 11/15/23
carvedilol 6.25 mg tablet 6.25 mg PO BID 11/15/23
cefadroxil 500 mg capsule 500 mg PO BID 11/15/23
magnesium hydroxide 400 mg/5 mL oral suspension (Milk of Magnesia) 30 ml PO HS PRN if no bm in 3 days 11/15/23
meloxicam 7.5 mg tablet 7.5 mg PO DAILY 11/15/23
sennosides 8.6 mg tablet (senna) 8.6 mg PO BID 11/15/23
trolamine salicylate 10 % topical cream (Aspercreme) 1 applic topical BID 11/15/23
Review of Systems
-
A 12 point ROS was completed and negative except as noted: Yes
Constitutional: Denies Fever or Chills
Respiratory: Denies Cough or Trouble Breathing
Cardiac: Denies Chest Pain or Palpitations
Abdomen/GI: Denies Abdominal Pain, Nausea or Vomiting
Physical Exam
Vital Signs
Vital Signs
Temp Pulse Resp BP Pulse Ox
98.2 F 71 16 139/69 98
11/15/23 20:43 11/15/23 22:07 11/15/23 22:07 11/15/23 22:07 11/15/23 22:07
Physical Exam
General: Comfortable and Conversant
HEENT: Anicteric and Moist mucous membranes
Respiratory: Clear and Non Labored Respirations
Cardiac: S1/S2 and Regular Rhythm
GI: Soft and Non Tender
Musculoskeletal: No Clubbing, No Cyanosis and Edema, Right Lower Extremity
Skin: Warm, Dry and Other (Wound dehiscence right knee with mild surrounding erythema)
Neuro: Awake, Alert, Oriented and Nonfocal/grossly intact
Psych: Calm
Laboratory Results
-
11/15/23 21:07
11/15/23 21:07
Laboratory Results
PT 14.5 Sec (11.4-14.6) 11/15/23 21:53
INR 1.14 11/15/23 21:53
Lactic Acid 0.7 mmol/L (0.7-2.0) 11/15/23 21:07
Total Bilirubin 0.6 mg/dl (0.2-1.3) 11/15/23 21:07
AST 19 U/L (14-36) 11/15/23 21:07
ALT < 10 U/L (0-35) 11/15/23 21:07
Alkaline Phosphatase 60 U/L (38-126) 11/15/23 21:07
Data Reviewed
-
Lab Data: Labs Reviewed by me
Impression/Plan
-
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
-Consult Orthopedics
-NPO after midnight for wash out in OR tomorrow
-Continue Ancef
-Consult Infectious Disease
Hyponatremia
-Hold furosemide
-Avoid NSAIDs
-Fluid restriction 1200ml/day once diet is resumed
-Check urine sodium and urine osmo
Anemia, suspect post-op acute blood loss anemia
-Check iron studies, vitamin b12 and folic acid
-Continue to monitor
Essential Hypertension
-Continue carvedilol with hold parameters
Hyperlipidemia
-Continue atorvastatin and fenofibrate
Anxiety
-Continue clonazepam
DVT proph: SC Heparin
Code Status: Full Code
[2023-11-15] MEDS: ANCEF 5 IV ×2 (22:51→23:43)
[2023-11-15 23:00] VITALS: BP 136/63
[2023-11-15] MEDS: NSS 1000 IV (23:53)
[2023-11-16] VITALS (7 sets, daily range): BP systolic 128–156; BP diastolic 63–73; BMI 22.9
--- NOTE | 2023-11-16 01:30 | PTCARENOTE ---
no delay received. aaox3 but forgetful and tearful. right knee +3 edema w/ purulent drainage. +pp. nss @ 80/hr. call ward in reach. will monitor.
[2023-11-16] MEDS: HEPARIN 5000 UNITS SC (02:01)
--- NOTE | 2023-11-16 06:56 | W.PN.HOSP.TC ---
Today's Communication/Plan
-
abx as per ID
npo after midnight for knee revision wash out with orthopedic
B12 Iron supplementation
monitor H&H transfusion goal Hgb>7
Assessment / Plan
Assessment / Plan
Physical Exam
General: Comfortable and Conversant
HEENT: Anicteric and Moist mucous membranes
Respiratory: Clear and Non Labored Respirations
Cardiac: S1/S2 and Regular Rhythm
GI: Soft and Non Tender
Musculoskeletal: No Clubbing, No Cyanosis and Edema, Right Lower Extremity
Skin: Warm, Dry, Wound dehiscence right knee with mild surrounding erythema
Neuro: AOx3
Psych: Calm
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
-Consult Orthopedics appreciated NPO after midnight for right knee revision wash out
-ID eval appreciated cont empiric cefazolin vancomycin
-follow cultures
Hyponatremia
-Hold furosemide
-Avoid NSAIDs
-Fluid restriction
Anemia, likely post-op acute blood loss anemia contributed
Iron Deficiency Anemia
Anemia of chronic disease
severe B12 deficiency
-Iron study appreciated
-B12 IM injection started
-iron supplementation
-monitor H&H, transfusion goal Hgb>7
Essential Hypertension
-Continue carvedilol with hold parameters
Hyperlipidemia
-Continue atorvastatin and fenofibrate
Anxiety
-Continue clonazepam
DVT proph: SC Heparin
Code Status: Full Code
discussed with patient, her , and daughter
I spent a total of 55 minutes with the patient or on the floor. More than 50% of this time involved counseling and coordination of care.
Anticipated Discharge: > 48 hours
Subjective/Interval History
-
Date of Service: November 16, 2023
Seen and examined at bedside in no acute distress sitting up comfortably in bed. Ongoing drainage right knee. and daughter present during evaluation
Objective Data
-
Labs:
Laboratory Results
11/15/23 11/15/23 11/16/23
21:07 21:53 06:00
WBC 5.4 Pending
Hgb 8.6 L Pending
Hct 25.5 L Pending
Plt Count 400 Pending
PT 14.5
INR 1.14
Sodium 129 L Pending
Potassium 3.9 Pending
Chloride 97 L Pending
Carbon Dioxide 26 Pending
BUN 12 Pending
Creatinine 0.7 Pending
Glucose 89 Pending
Calcium 9.0 Pending
Total Bilirubin 0.6
AST 19
ALT < 10
Alkaline Phosphatase 60
Vital Signs:
Vital Signs
Temp Pulse Resp BP Pulse Ox
98.6 F 71 20 128/73 98
11/16/23 01:50 11/16/23 01:50 11/16/23 01:50 11/16/23 01:50 11/16/23 01:50
I&O
11/14/23 11/15/23 11/16/23
06:59 06:59 06:59
Intake Total 700 / 700
Balance 700 / 700
--- NOTE | 2023-11-16 07:06 | W.PN.UPDATE ---
Update Note
Progress Note Update
Orthopedic consult dictated:
Dx: PJI right total knee arthroplasty
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 She is going to require single-stage revision and likely 6-week course of antibiotics per infectious disease. She will be n.p.o. for now.
Surgical and blood consents signed. Vancomycin and tobramycin powder along with antibiotic irrigation to be sent to the operating room for later today. Labs pending this morning. If OR permits surgery will be performed later today.
--- NOTE | 2023-11-16 07:40 | W.PN.UPDATE ---
Update Note
Progress Note Update
OR does not have availability till evening and I think this doesn't make sense to keep her npo so long. 7 am or is available tomorrow w. orthopedic OR nursing staff as well so I will proceed w. right knee revision tomorrow am. Medical consult w.
ID this am. Synovasure DNA test shows staph species but culture so far neg. This is false negative since synovial wbc elevated and alpha defensin positive in synovial fluid. All pt's questions answered. She said she was very upset by the
situation but I said we will try our very best to get through it successfully. I answered all questions and described the likely plan, right knee reivsion w. high dose abx. .
[2023-11-16 08:32] LABS: Hematocrit 25.8 % (37.0-47.0); Hemoglobin 8.2 g/dL (12.0-16.0); Mean Corp Hgb Conc. 31.8 g/dL (33.0-37.0); Mean Corpuscular Hgb 27.7 pg (27.0-31.0); Mean Corpuscular Volume 87.2 fL (81.0-99.0); Mean Platelet Volume 9.9 fL (7.4-10.4); Platelet Count 391 10^3/uL (130-400); Red Blood Cell Count 2.96 10^6/uL (4.20-5.40); Red Cell Dist. Width 18.5 % (11.5-14.5); White Blood Cell Count 4.2 10^3/uL (4.8-10.8)
[2023-11-16 09:07] LABS: Blood Urea Nitrogen 9 mg/dl (7-17); Calcium 8.7 mg/dl (8.4-10.2); Carbon Dioxide 27 mmol/L (22-30); Chloride 102 mmol/L (98-107); Estimated Creatinine Clearance 72 ml/min; Glucose 82 mg/dl (70-99); Magnesium 1.9 mg/dl (1.6-2.3); Sodium 134 mmol/L (135-145); eGFR > 60.00
[2023-11-16] MEDS: COLACE PO ×3 (09:20→20:41)
[2023-11-16] MEDS: KLONOPIN 1 MG PO (09:20)
[2023-11-16] MEDS: SALAGEN 5 MG PO ×3 (09:20→20:44)
[2023-11-16] MEDS: VITAMIN D3 (cholecalciferol) 25 MCG PO (09:20)
[2023-11-16] MEDS: SENOKOT PO ×3 (09:20→20:45)
[2023-11-16] MEDS: ANCEF 10 IV ×3 (09:20→23:04)
[2023-11-16 09:21] LABS: TSH Reflex To Free T4 1.15 uIU/ml (0.47-4.68)
[2023-11-16] MEDS: COREG 6.25 MG PO ×2 (09:24→20:45)
[2023-11-16 09:30] LABS: Osmolality Urine 165 mOsm/kg (300-900)
[2023-11-16 10:07] LABS: Urine Sodium 50 mmol/L (30-90)
--- NOTE | 2023-11-16 11:01 | CON.ID ---
Consultation
-
Date/Time Consultation Requested: 11/16/2023 01:36
Date/Time Consultation Performed: 11/16/2023 1051
Requesting Provider: Yun Tyson
Performing Provider: Dr. Aleman
Reason for Consultation: Right knee PJI
Chief Complaint / Past History
History of Present Illness
Bonnie Tovar is a 83-year-old female being evaluated at the request of Yun Tyson regarding right knee PJI. History is obtained from chart review, along with patient interview.
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 She underwent a right TKA on 10/25/2023. The procedure went
well, with no apparent intraoperative complications (as per operative note) the patient was subsequently discharged to rehab on 10/30/2023.
She reports that a follow-up visit was performed approximately 1 week later, and then again on 11/09 at which time some drainage was noted from the knee. The patient reports that the sample was sent to the lab. The patient was then seen again in
the office on 11/13 and a [facility] microbiology panel was sent, which has been found to be positive for 'Staphylococcus'. Once those results were back, she was sent to to the emergency room for admission. Since admission, the patient has been
started on empiric antibiotics, with a plan for right knee revision tomorrow.
During this period of time, the patient denies any fevers or chills. She denies any significant pain.
Past History
Additional Past Medical History:
Osteoarthritis
HTN
Dyslipidemia
Anxiety
Hx bladder CA
Osteopenia
Hx pulmonary mass
Insomnia
Cognitive defects
Hx L1 vertebral fracture
Additional Past Surgical History:
TURB
Left breast biopsy
Oophorectomy
Lumbar spacer
Cataracts
Allergy History:
No Known Allergies Allergy (Verified 11/15/23 20:43)
Medications Reviewed: Yes
Current Antibiotics:
Cefazolin 2 g IV every 8 hours
Vancomycin x 1
Social History
Tobacco: Former Smoker
Alcohol: Occasional
Drug: None
Review of Systems
Vital Signs
Temp Pulse Resp BP Pulse Ox
98.3 F 68 16 156/65 100
11/16/23 07:20 11/16/23 09:24 11/16/23 07:20 11/16/23 09:24 11/16/23 07:20
Physical Exam
Physical Exam
Constitutional: No Acute Distress, Comfortable, Chronically Ill and Non-toxic
Head: Normocephalic
Eyes: Pupils Equal, Pupils Round, No Conjunctival Hemorrhage and Sclera Anicteric
Oral: No Thrush
Cardiovascular: S1/S2; Negative S3/S4
Pulmonary: Non Labored
Gastrointestinal: Soft, Non Tender, Non Distended, Normal Bowel Sounds, No Rebound and No Guarding
Genito-Urinary: Negative Dee
Extremities: Edema (RLE) and Erythema (Right knee area)
Wound: Other (0.8 cm wound on the anterior aspect of the right knee.)
Neurological: Awake and Alert
Psychological: Calm
Lab / Diagnostic Study Results
11/16/23 07:45
11/16/23 07:44
Abs Immat Gran (auto) 0.0 10^3/uL (0-0.05) 11/15/23 21:07
Absolute Neuts (auto) 2.3 10^3/uL (1.4-6.5) 11/15/23 21:07
Absolute Lymphs (auto) 2.1 10^3/uL (1.2-3.4) 11/15/23 21:07
Absolute Monos (auto) 0.7 10^3/uL (0.1-0.6) H 11/15/23 21:07
Absolute Basos (auto) 0.1 10^3/uL (0-0.2) 11/15/23 21:07
Immature Gran % 0.2 % (0-0.5) 11/15/23 21:07
Neutrophils % 42.6 % (42.2-75.2) 11/15/23 21:07
Lymphocytes % 38.4 % (20.5-51.1) 11/15/23 21:07
Monocytes % 12.1 % (1.7-9.3) H 11/15/23 21:07
Eosinophils % 5.8 % (0-6) 11/15/23 21:07
Basophils % 0.9 % (0-2) 11/15/23 21:07
PT 14.5 Sec (11.4-14.6) 11/15/23 21:53
INR 1.14 11/15/23 21:53
Lactic Acid Cancelled 11/16/23 01:15
Microbiology Results
Micro:
11/16/23 02:04 MRSA Screen - Pending
Nose
11/15/23 21:07 Blood Culture - Pending
Blood/Venous
11/15/23 21:07 Blood Culture - Pending
Blood/Venous
Imaging:
11/15/2023 X-ray right knee: Right knee arthroplasty is seen. Some lucency and fragmentation of the residual medial femoral condyle is noted.
Assessment / Plan
Right knee PJI
Elevated CRP
Osteoarthritis
HTN
Dyslipidemia
Anxiety
Hx bladder CA
Osteopenia
Hx pulmonary mass
Insomnia
Cognitive defects
Hx L1 vertebral fracture
Recommendations:
Continue with empiric antibiotics. (Cefazolin; vancomycin). Follow Vanco levels closely.
Check ESR and CRP in AM.
Await tentative surgery. Please check deep intraoperative cultures.
Will await pending outpatient cultures.
Follow white count and temperature curve.
[2023-11-16 11:04] LABS: HDL Cholesterol 25 mg/dl; Iron 35 ug/dl (37-170); LDL Cholesterol, Calculated 40 mg/dl; Total Cholesterol 92 mg/dl (50-199); Triglyceride 139 mg/dl (10-149); Very Low Density Lipoprotein 27 mg/dl (0-30)
[2023-11-16 11:13] LABS: Percent Saturation 14 % (20-50); Total Iron Binding Capacity 242 ug/dl (265-497)
[2023-11-16 11:55] LABS: Folate 5.6 ng/ml (2.76-20); Vitamin B12 < 159 pg/ml (239-931)
--- NOTE | 2023-11-16 15:34 | CM ---
Patient seen bedside with daughter and spouse.
Patient lives in a split level type home with 5 steps to enter.
Patient ambulates with a RW or cane, also has a WC.
Patient does not drive.
patient s/p recent TKR 10/25/23, went to skilled rehab at [facility].
No hx VN
PMD: Dr Zimmerman
[facility]
Plan: OR tomorrow, skilled rehab when medically stable.
referrals sent to [facility] and [facility] per family request.
[2023-11-16] MEDS: FLUSH (NSS) 1 FLUSH IV (16:51)
[2023-11-16] MEDS: TYLENOL 1000 MG PO (16:55)
[2023-11-16] MEDS: NEURONTIN 300 MG PO (20:44)
[2023-11-16] MEDS: TRICOR 145 MG PO (20:44)
[2023-11-16] MEDS: LIPITOR 10 MG PO (20:45)
[2023-11-16] MEDS: CYANOCOBALAMIN 1000 MCG IM (23:03)
[2023-11-17] VITALS (15 sets, daily range): BP systolic 111–159; BP diastolic 52–82; PULSE 75; O2SAT 100; BMI 22.4
[2023-11-17 05:30] LABS: Hemoglobin 8.8 g/dL (12.0-16.0); Mean Corp Hgb Conc. 32.6 g/dL (33.0-37.0); Mean Corpuscular Hgb 28.1 pg (27.0-31.0); Mean Corpuscular Volume 86.3 fL (81.0-99.0); Mean Platelet Volume 9.7 fL (7.4-10.4); Platelet Count 463 10^3/uL (130-400); Red Blood Cell Count 3.13 10^6/uL (4.20-5.40); White Blood Cell Count 5.1 10^3/uL (4.8-10.8)
[2023-11-17 06:02] LABS: Blood Urea Nitrogen 9 mg/dl (7-17); Calcium 9.3 mg/dl (8.4-10.2); Carbon Dioxide 24 mmol/L (22-30); Chloride 102 mmol/L (98-107); Estimated Creatinine Clearance 72 ml/min; Glucose 81 mg/dl (70-99); Potassium 4.4 mmol/L (3.5-5.1); Sodium 133 mmol/L (135-145); eGFR > 60.00
--- NOTE | 2023-11-17 06:41 | PTCARENOTE ---
report given to college sports assistant. pt transported to or w/ chart.
[2023-11-17 06:52] LABS: Vitamin B12 > 1000 pg/ml (239-931)
--- NOTE | 2023-11-17 07:24 | W.PN.HOSP.TC ---
Today's Communication/Plan
-
abx as per ID
wound care as per orthopedic
B12 Iron supplementation
monitor H&H transfusion goal Hgb>7
Pain control
Assessment / Plan
Assessment / Plan
Physical Exam
General: Comfortable and Conversant
HEENT: Anicteric and Moist mucous membranes
Respiratory: Clear and Non Labored Respirations
Cardiac: S1/S2 and Regular Rhythm
GI: Soft and Non Tender
Musculoskeletal: No Clubbing, No Cyanosis and Edema, Right wound dressing clean dry intact
Neuro: AOx3
Psych: Calm
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
-Consult Orthopedics appreciated s/p right knee revision wash out 11/15
-ID eval appreciated cont empiric cefazolin vancomycin
-follow cultures
Hyponatremia
-furosemide briefly held, resumed with improvement in Na level
-Avoid NSAIDs
-Fluid restriction
Anemia, likely post-op acute blood loss anemia contributed
Iron Deficiency Anemia
Anemia of chronic disease
severe B12 deficiency
-Iron study appreciated
-B12 IM once 11/15, started daily B12 1000 mg supplementation 11/16 repeat levels in 1 month recommended
-iron supplementation, repeat iron studies in 1 month recommended
-monitor H&H, transfusion goal Hgb>7
Essential Hypertension
-Continue carvedilol with hold parameters
Hyperlipidemia
-Continue atorvastatin and fenofibrate
Anxiety
-Continue clonazepam
DVT proph: SC Heparin
Code Status: Full Code
discussed with patient and her Zion
I spent a total of 55 minutes with the patient or on the floor. More than 50% of this time involved counseling and coordination of care.
Anticipated Discharge: > 48 hours
Subjective/Interval History
-
Date of Service: November 17, 2023
Seen and examined at bedside s/p right knee revision washout with orthopedic. Patient appears to be well, in better spirits compared to yesterday. Reports pain well controlled at this time. Zion present during evaluation.
Objective Data
-
Labs:
Laboratory Results
11/17/23
04:48
WBC 5.1
Hgb 8.8 L
Hct 27.0 L
Plt Count 463 H
Sodium 133 L
Potassium 4.4
Chloride 102
Carbon Dioxide 24
BUN 9
Creatinine 0.6
Glucose 81
Calcium 9.3
Vital Signs:
Vital Signs
Temp Pulse Resp BP Pulse Ox
98.1 F 66 20 146/71 100
11/16/23 23:51 11/16/23 23:51 11/16/23 23:51 11/16/23 23:51 11/16/23 23:51
I&O
11/16/23 11/17/23 11/18/23
06:59 06:59 06:59
Intake Total 700 / 700 1320 / 1320
Output Total 1900 / 1900
Balance 700 / 700 -580 / -580
[2023-11-17] MEDS: ANCEF IV (07:25)
[2023-11-17 07:39] LABS: Erythrocyte Sed Rate 51 mm/hour (0-20)
--- NOTE | 2023-11-17 07:44 | W.PN.UPDATE ---
Update Note
Progress Note Update
83F OR today for right TKR PJI
-NPO
-abx for cement on orders
-type and screen on file
-consent on file.
[2023-11-17] MEDS: COREG PO (08:00)
[2023-11-17] MEDS: SALAGEN PO (08:00)
[2023-11-17] MEDS: KLONOPIN PO (08:00)
--- NOTE | 2023-11-17 09:59 | CM ---
Patient off the floor for OR.
[2023-11-17] MEDS: COLACE PO ×2 (10:47→20:46)
[2023-11-17] MEDS: SENOKOT PO ×2 (10:48→20:46)
--- NOTE | 2023-11-17 10:49 | W.PN.ID1 ---
Date of Service
Date of Service: November 17, 2023
Today's Communication
Continue antibiotics.
Assessment / Plan
Right knee PJI
Elevated CRP
Elevated ESR
Osteoarthritis
HTN
Dyslipidemia
Anxiety
Hx bladder CA
Osteopenia
Hx pulmonary mass
Insomnia
Cognitive defects
Hx L1 vertebral fracture
Recommendations:
Continue with empiric antibiotics. (Cefazolin; vancomycin). Follow Vanco levels closely to prevent renal toxicity
Outpatient testing reviewed with Orthopedics. PCR panel shows presence of 'Staphylococcus species', with culture also revealing the presence of a staph species.
Await pending cultures.
Follow white count and temperature curve.
����������������������������������������������������������
Chief Complaint
-: Other (Right knee PJI)
Subjective / Review of Systems
Patient seen and examined. Status post right knee revision earlier today. Overall feels well.
Vital Signs / Physical Exam
Vital Signs
Vital Signs
Temp Pulse Resp BP Pulse Ox
97.7 F 69 16 133/70 99
11/17/23 10:25 11/17/23 10:25 11/17/23 10:25 11/17/23 10:25 11/17/23 10:25
Physical Exam
Constitutional: No Acute Distress, Comfortable, Chronically Ill and Non-toxic
Eyes: No Conjunctival Hemorrhage and Sclera Anicteric
Cardiovascular: S1/S2; Negative S3/S4
Pulmonary: Clear and Non Labored
Gastrointestinal: Soft and Non Tender
Musculoskeletal: Other (Right knee currently in immobilizer.)
Skin: Warm and Dry; Negative Rash or Jaundice
Neurological: Awake and Alert
Psychological: Calm
Objective Data
Lab Data
Lab Results
11/17/23 04:48
11/17/23 04:48
ESR 51 mm/hour (0-20) H 11/17/23 04:48
PT 14.5 Sec (11.4-14.6) 11/15/23 21:53
INR 1.14 11/15/23 21:53
Estimated Creat Clear 72 ml/min 11/17/23 04:48
Lactic Acid Cancelled 11/16/23 01:15
Total Bilirubin 0.6 mg/dl (0.2-1.3) 11/15/23 21:07
AST 19 U/L (14-36) 11/15/23 21:07
ALT < 10 U/L (0-35) 11/15/23 21:07
Alkaline Phosphatase 60 U/L (38-126) 11/15/23 21:07
C-Reactive Protein 52.10 mg/L (0.0-10.00) H 11/17/23 04:48
Most recent labs reviewed.
Micro Results:
11/17/23 07:58 Tissue Culture - Pending
Knee - Right Gram Stain - Pending
11/17/23 07:58 Tissue Culture - Pending
Knee - Right Gram Stain - Pending
11/17/23 07:58 Tissue Culture - Pending
Knee - Right Gram Stain - Pending
11/17/23 07:45 Tissue Culture - Pending
Knee - Right Gram Stain - Pending
11/16/23 02:04 MRSA Screen - Final
Nose No Methicillin Resistant Staphylococcus aureus isolated.
11/15/23 21:07 Blood Culture - Preliminary
Blood/Venous No Growth in 24 hours- Final report to follow
11/15/23 21:07 Blood Culture - Preliminary
Blood/Venous No Growth in 24 hours- Final report to follow
Imaging:
11/15/2023 X-ray right knee: Right knee arthroplasty is seen. Some lucency and fragmentation of the residual medial femoral condyle is noted.
Care Review
Plan reviewed with: Physician (Orthopedics; Hospitalist)
[2023-11-17] MEDS: TYLENOL 1000 MG PO (13:40)
[2023-11-17] MEDS: FEOSOL 325 MG PO (13:41)
[2023-11-17] MEDS: VITAMIN D3 (cholecalciferol) 25 MCG PO (13:41)
[2023-11-17] MEDS: VITAMIN B-12 1000 MCG PO (13:41)
--- NOTE | 2023-11-17 14:30 | PTCARENOTE ---
pt was c/o knee discomfort. leg below the immobilizer, foot and toes were becoming swollen, pale and cool to touch. loosened the immobilizer and the jadiel wrap was very tight around the knee. immediately pt verbalized relief from knee discomfort as I
loosened the jadiel. small amount of drainage on the aqua cell dressing. Dr Arteaga made aware and jadiel wrap re-applied to knee not as tight. immobilizer re-fastened. will observe.
[2023-11-17] MEDS: SALAGEN 5 MG PO ×2 (16:07→21:05)
[2023-11-17] MEDS: ANCEF 10 IV ×2 (16:08→23:00)
[2023-11-17] MEDS: ASPIRIN 325 MG PO (17:48)
[2023-11-17] MEDS: ROXICODONE 2.5 MG PO (17:54)
[2023-11-17] MEDS: BACTROBAN 2% OINTMENT 1 APPLIC NASAL (20:47)
[2023-11-17] MEDS: COREG 6.25 MG PO (20:54)
[2023-11-17] MEDS: NEURONTIN 300 MG PO (21:05)
[2023-11-17] MEDS: TRICOR 145 MG PO (21:05)
[2023-11-17] MEDS: LIPITOR 10 MG PO (21:05)
[2023-11-17] MEDS: TYLENOL 500 MG PO (22:44)
[2023-11-18] MEDS: ROXICODONE 2.5 MG PO ×4 (03:20→17:41)
[2023-11-18 03:21] VITALS: BP 142/70
[2023-11-18 05:27] VITALS: BMI 22.8
[2023-11-18 05:41] LABS: Hematocrit 24.2 % (37.0-47.0); Mean Corp Hgb Conc. 33.1 g/dL (33.0-37.0); Mean Corpuscular Volume 84.6 fL (81.0-99.0); Mean Platelet Volume 9.7 fL (7.4-10.4); Platelet Count 401 10^3/uL (130-400); Red Blood Cell Count 2.86 10^6/uL (4.20-5.40); Red Cell Dist. Width 17.5 % (11.5-14.5)
[2023-11-18 06:15] LABS: Blood Urea Nitrogen 13 mg/dl (7-17); Calcium 9.1 mg/dl (8.4-10.2); Carbon Dioxide 24 mmol/L (22-30); Chloride 101 mmol/L (98-107); Estimated Creatinine Clearance 61 ml/min; Glucose 82 mg/dl (70-99); Magnesium 2.2 mg/dl (1.6-2.3); Phosphorus 2.9 mg/dl (2.5-4.5); Sodium 130 mmol/L (135-145); eGFR > 60.00
[2023-11-18 07:19] VITALS: BP 103/47
--- NOTE | 2023-11-18 08:22 | W.PN.HOSP.TC ---
Today's Communication/Plan
-
abx as per ID
wound care as per orthopedic
B12 Iron supplementation
monitor H&H transfusion goal Hgb>7
Pain control
Assessment / Plan
Assessment / Plan
Physical Exam
General: Comfortable and Conversant
HEENT: Anicteric and Moist mucous membranes
Respiratory: Clear and Non Labored Respirations
Cardiac: S1/S2 and Regular Rhythm
GI: Soft and Non Tender
Musculoskeletal: No Clubbing, No Cyanosis and Edema, Right wound dressing clean dry intact
Neuro: AOx3
Psych: Calm
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
-Consult Orthopedics appreciated s/p right knee revision wash out 11/15
-ID eval appreciated cont cefazolin 6 week course followed by 6 mo vs lifelong suppression
-follow cultures
Hyponatremia
-furosemide briefly held, resumed with improvement in Na level
-Avoid NSAIDs
-Fluid restriction
Anemia, likely post-op acute blood loss anemia contributed
Iron Deficiency Anemia
Anemia of chronic disease
severe B12 deficiency
-Iron study appreciated
-B12 IM once 11/15, started daily B12 1000 mg supplementation 11/16 repeat levels in 1 month recommended
-iron supplementation, repeat iron studies in 1 month recommended
-monitor H&H, transfusion goal Hgb>7
Essential Hypertension
-Continue carvedilol with hold parameters
Hyperlipidemia
-Continue atorvastatin and fenofibrate
Anxiety
-Continue clonazepam
DVT proph: ASA 325 mg per orthopedic
Code Status: Full Code
discussed with patient and her Zion
I spent a total of 55 minutes with the patient or on the floor. More than 50% of this time involved counseling and coordination of care.
Anticipated Discharge: 24 - 48 hours
Subjective/Interval History
-
Date of Service: November 18, 2023
No acute distress. Reports feeling well. Denies new acute issues at this time.
Objective Data
-
Labs:
Laboratory Results
11/18/23
04:54
WBC 4.0 L
Hgb 8.0 L
Hct 24.2 L
Plt Count 401 H
Sodium 130 L
Potassium 5.0
Chloride 101
Carbon Dioxide 24
BUN 13
Creatinine 0.7
Glucose 82
Calcium 9.1
Vital Signs:
Vital Signs
Temp Pulse Resp BP Pulse Ox
98.9 F 71 16 103/47 95
11/18/23 07:19 11/18/23 07:19 11/18/23 07:19 11/18/23 07:19 11/18/23 07:19
I&O
11/17/23 11/18/23 11/19/23
06:59 06:59 06:59
Intake Total 1320 / 1320 1330 / 1330
Output Total 1900 / 1900 700 / 700
Balance -580 / -580 630 / 630
[2023-11-18] MEDS: COREG PO (08:32)
[2023-11-18] MEDS: KLONOPIN 1 MG PO (08:38)
[2023-11-18] MEDS: ASPIRIN 325 MG PO (08:38)
[2023-11-18] MEDS: VITAMIN B-12 1000 MCG PO (08:38)
[2023-11-18] MEDS: VITAMIN D3 (cholecalciferol) 25 MCG PO (08:38)
[2023-11-18] MEDS: FEOSOL 325 MG PO (08:38)
[2023-11-18] MEDS: COLACE 100 MG PO ×2 (08:38→20:55)
[2023-11-18] MEDS: SALAGEN 5 MG PO ×3 (08:38→21:02)
[2023-11-18] MEDS: SENOKOT 8.59999999999999964 MG PO ×2 (08:38→20:55)
[2023-11-18] MEDS: LASIX 20 MG PO (08:38)
[2023-11-18] MEDS: BACTROBAN 2% OINTMENT 1 APPLIC NASAL ×2 (08:39→20:55)
--- NOTE | 2023-11-18 08:52 | W.PN.ORTHO ---
Today's Communication / Plan
-
83yo female POD#1 from right revision TKA for PJI with Dr. Arteaga
--WBAT. Ambulate with assistive device
--PT/OT
--Continue knee immobilizer and limit ROM of knee for now. Will keep knee immobilizer in place to allow for skin healing over the patella
--Follow OR cultures. Gram stain wtih many WBC, no organisms. Cultures pending
--Continue with antibiotics per ID recommendations. Currently, cefazolin and vancomycin
--Hemoglobin 8.0, WBC 4.0, Temp: 98.9. Continue to monitor
--Continue with pain management as needed. Apply ice for edema control
--Recommend aspirin 325mg daily for DVT prophylaxis x4 weeks postop
--Case Management consult for discharge planning
--Will continue to follow along
Assessment
.
Distal Motor Intact: Yes
Dressing:
Clean, dry and intact.
Plan
.
Surgery / Date: Right revision TKA 11/17/23 Dr. Arteaga
DVT Prophylaxis: Aspirin
Activity:
Out of bed.
PT/OT
Subjective
.
.:
Patient resting comfortably in the chair this morning. She reports pain in the knee. She was able to take a few steps yesterday afternoon. Her KIMI wrap felt tight yesterday and this was rewrapped. Now she is feeling more comfortable.
Vital Signs and Labs
.
Vital Signs and Labs:
Lab Results
11/18/23 04:54
11/18/23 04:54
Temp Pulse Resp BP Pulse Ox
98.9 F 71 16 103/47 95
11/18/23 07:19 11/18/23 07:19 11/18/23 07:19 11/18/23 08:32 11/18/23 07:19
PT 14.5 Sec (11.4-14.6) 11/15/23 21:53
INR 1.14 11/15/23 21:53
Physical Exam
-
RLE: knee immobilizer in place. KIMI wrap. There is small amount of bloody drainage to the center of the Aquacel, not extending to borders. Expected edema and ecchymosis. ROM deferred. Calf soft and nontender. NVI distally.
[2023-11-18] MEDS: ANCEF 10 IV ×3 (09:03→23:02)
--- NOTE | 2023-11-18 10:01 | W.PN.ID1 ---
Addendum entered and electronically signed by Oni Aleman, 11/18/23 10:12:
Home infusion script placed on paper chart.
PICC / midline to be placed as patient nears D/C.
Correction: Continue cefazolin. Patient was not on prior vancomycin.
Original Note:
Date of Service
Date of Service: November 18, 2023
Today's Communication
Narrow to cefazolin alone.
Assessment / Plan
Right knee PJI
Elevated CRP
Elevated ESR
Osteoarthritis
HTN
Dyslipidemia
Anxiety
Hx bladder CA
Osteopenia
Hx pulmonary mass
Insomnia
Cognitive defects
Hx L1 vertebral fracture
Recommendations:
Patient cultures reviewed, and reveals presence of MSSA.
Narrow to cefazolin alone.
Discontinue further vancomycin.
Patient will require a 6-week course of IV antibiotics (cefazolin), likely followed by 6 month(vs lifelong) suppression.
����������������������������������������������������������
Chief Complaint
-: Other (Right knee PJI)
Subjective / Review of Systems
Review of Systems: No Fever and No Chills
Vital Signs / Physical Exam
Vital Signs
Vital Signs
Temp Pulse Resp BP Pulse Ox
98.9 F 71 16 103/47 95
11/18/23 07:19 11/18/23 07:19 11/18/23 07:19 11/18/23 08:32 11/18/23 07:19
Physical Exam
Physical Exam:
Constitutional: No Acute Distress, Comfortable, Chronically Ill and Non-toxic
Eyes: No Conjunctival Hemorrhage and Sclera Anicteric
Cardiovascular: S1/S2; Negative S3/S4
Pulmonary: Clear and Non Labored
Gastrointestinal: Soft and Non Tender
Musculoskeletal: Other (Right knee currently in immobilizer.)
Skin: Warm and Dry; Negative Rash or Jaundice
Neurological: Awake and Alert
Psychological: Calm
Objective Data
Lab Data
Lab Results
11/18/23 04:54
11/18/23 04:54
ESR 51 mm/hour (0-20) H 11/17/23 04:48
PT 14.5 Sec (11.4-14.6) 11/15/23 21:53
INR 1.14 11/15/23 21:53
Estimated Creat Clear 61 ml/min 11/18/23 04:54
Lactic Acid Cancelled 11/16/23 01:15
Total Bilirubin 0.6 mg/dl (0.2-1.3) 11/15/23 21:07
AST 19 U/L (14-36) 11/15/23 21:07
ALT < 10 U/L (0-35) 11/15/23 21:07
Alkaline Phosphatase 60 U/L (38-126) 11/15/23 21:07
C-Reactive Protein 52.10 mg/L (0.0-10.00) H 11/17/23 04:48
Most recent labs reviewed.
Micro Results:
11/15/23 21:07 Blood Culture - Preliminary
Blood/Venous No Growth in 48 hours- Final report to follow
11/15/23 21:07 Blood Culture - Preliminary
Blood/Venous No Growth in 48 hours- Final report to follow
11/17/23 07:58 Tissue Culture - Pending
Knee - Right Gram Stain - Preliminary
11/17/23 07:58 Tissue Culture - Pending
Knee - Right Gram Stain - Preliminary
11/17/23 07:45 Tissue Culture - Pending
Knee - Right Gram Stain - Preliminary
11/17/23 07:58 Tissue Culture - Pending
Knee - Right Gram Stain - Preliminary
11/16/23 02:04 MRSA Screen - Final
Nose No Methicillin Resistant Staphylococcus aureus isolated.
Imaging:
11/15/2023 X-ray right knee: Right knee arthroplasty is seen. Some lucency and fragmentation of the residual medial femoral condyle is noted.
Care Review
Plan reviewed with: Physician (Orthopedics)
--- NOTE | 2023-11-18 14:34 | CM ---
MEt with patient and her dgtr in room Reviewed medicare.gov ratings for SNF. Dgtr and patient agreed to referrals to [facility] but first choice remains [facility] for short term rehab. Patient will need 6 weeks of IV
cefazolin q8hrs.
REferrals sent to all snf with updated clinical.
[2023-11-18 15:25] VITALS: BP 130/68
[2023-11-18] MEDS: COREG 6.25 MG PO (20:55)
[2023-11-18] MEDS: TRICOR 145 MG PO (21:03)
[2023-11-18] MEDS: LIPITOR 10 MG PO (21:03)
[2023-11-18] MEDS: NEURONTIN 300 MG PO (22:40)
[2023-11-18 23:27] VITALS: BP 135/77
[2023-11-19 06:00] VITALS: BMI 21.8
[2023-11-19 06:27] LABS: Hematocrit 23.5 % (37.0-47.0); Hemoglobin 7.8 g/dL (12.0-16.0); Mean Corp Hgb Conc. 33.2 g/dL (33.0-37.0); Mean Corpuscular Volume 84.2 fL (81.0-99.0); Mean Platelet Volume 9.4 fL (7.4-10.4); Platelet Count 414 10^3/uL (130-400); Red Blood Cell Count 2.79 10^6/uL (4.20-5.40); Red Cell Dist. Width 17.7 % (11.5-14.5); White Blood Cell Count 4.4 10^3/uL (4.8-10.8)
[2023-11-19 06:51] LABS: Blood Urea Nitrogen 12 mg/dl (7-17); Carbon Dioxide 25 mmol/L (22-30); Chloride 97 mmol/L (98-107); Estimated Creatinine Clearance 61 ml/min; Glucose 83 mg/dl (70-99); Phosphorus 2.7 mg/dl (2.5-4.5); Potassium 4.3 mmol/L (3.5-5.1); Sodium 129 mmol/L (135-145); eGFR > 60.00
--- NOTE | 2023-11-19 06:58 | W.PN.HOSP.TC ---
Today's Communication/Plan
-
abx as per ID
wound care as per orthopedic
B12 Iron supplementation
monitor H&H transfusion goal Hgb>7
Pain control
PT/OT
Discharge planning SNFrehab
Assessment / Plan
Assessment / Plan
Physical Exam
General: Comfortable and Conversant
HEENT: Anicteric and Moist mucous membranes
Respiratory: Clear and Non Labored Respirations
Cardiac: S1/S2 and Regular Rhythm
GI: Soft and Non Tender
Musculoskeletal: No Clubbing, No Cyanosis and Edema, Right wound dressing clean dry intact
Neuro: AOx3
Psych: Calm
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
-Consult Orthopedics appreciated s/p right knee revision wash out 11/15
-ID eval appreciated cont cefazolin 6 week course followed by 6 mo vs lifelong suppression
-follow cultures 11/16 tissue cx pos for S aureus sensitivities pending (outpatient cx's appreciated MSSA as per ID)
-PICC placed 11/19/23
Hyponatremia
-furosemide briefly held, resumed with improvement in Na level
-Avoid NSAIDs
-Fluid restriction
Anemia, likely post-op acute blood loss anemia contributed
Iron Deficiency Anemia
Anemia of chronic disease
severe B12 deficiency
-Iron study appreciated
-B12 IM once 11/15, started daily B12 1000 mg supplementation 11/16 repeat levels in 1 month recommended
-iron supplementation, repeat iron studies in 1 month recommended
-monitor H&H, transfusion goal Hgb>7
Essential Hypertension
-Continue carvedilol with hold parameters
Hyperlipidemia
-Continue atorvastatin and fenofibrate
Anxiety
-Continue clonazepam
DVT proph: ASA 325 mg per orthopedic
GI ppx Protonix
Code Status: Full Code
discussed with patient
I spent a total of 55 minutes with the patient or on the floor. More than 50% of this time involved counseling and coordination of care.
Anticipated Discharge: 24 - 48 hours
Subjective/Interval History
-
Date of Service: November 19, 2023
Seen and examined at bedside in no acute distress sitting up comfortably in chair. Reports right knee pain but tolerable with current pain regimen.
Objective Data
-
Labs:
Laboratory Results
11/19/23
05:52
WBC 4.4 L
Hgb 7.8 L
Hct 23.5 L
Plt Count 414 H
Sodium 129 L
Potassium 4.3
Chloride 97 L
Carbon Dioxide 25
BUN 12
Creatinine 0.7
Glucose 83
Calcium 9.0
Vital Signs:
Vital Signs
Temp Pulse Resp BP Pulse Ox
98.7 F 87 18 135/77 98
11/18/23 23:27 11/18/23 23:27 11/18/23 23:27 11/18/23 23:27 11/18/23 23:27
I&O
11/17/23 11/18/23 11/19/23
06:59 06:59 06:59
Intake Total 1320 / 1320 1330 / 1330 1859
Output Total 1900 / 1900 700 / 700
Balance -580 / -580 630 / 630 1859
--- NOTE | 2023-11-19 07:17 | W.PN.ORTHO ---
Today's Communication / Plan
-
83yo female POD#2 from right revision TKA for PJI with Dr. Arteaga
--WBAT. Ambulate with assistive device
--PT/OT
--Continue knee immobilizer and limit ROM of knee for now. Will keep knee immobilizer in place to allow for skin healing over the patella (likely 1-2 weeks)
--Follow OR cultures. Gram stain with many WBC, no organisms. Cultures no growth after 18-24 hours
--Continue with antibiotics per ID recommendations. Narrowed to cefazolin only. Anticipate 6 weeks of IV antibiotics
--Hemoglobin 7.8, WBC 4.4 on AM labs. Continue to monitor. Transfusion at discretion of primary team
--Continue with pain management as needed. Apply ice for edema control
--Recommend aspirin 325mg daily for DVT prophylaxis x4 weeks postop
--Case Management consult for discharge planning
--Will continue to follow along
Assessment
.
Distal Motor Intact: Yes
Dressing:
Clean, dry and intact.
Plan
.
Surgery / Date: Right revision TKA 11/17/23 Dr. Arteaga
DVT Prophylaxis: Aspirin
Activity:
Out of bed.
PT/OT
Subjective
.
.:
Patient resting comfortably in bed this morning. She reports pain to the knee. She has been walking to the bathroom with the assistance of a walker.
Vital Signs and Labs
.
Vital Signs and Labs:
Lab Results
11/19/23 05:52
11/19/23 05:52
Temp Pulse Resp BP Pulse Ox
98.7 F 87 18 135/77 98
11/18/23 23:27 11/18/23 23:27 11/18/23 23:27 11/18/23 23:27 11/18/23 23:27
PT 14.5 Sec (11.4-14.6) 11/15/23 21:53
INR 1.14 11/15/23 21:53
Non-invasive Hgb result: 9.6
Physical Exam
-
RLE: knee immobilizer in place. KIMI wrap. There is small amount of bloody drainage to the center of the Aquacel, not extending to borders. Expected edema and ecchymosis. ROM deferred. Calf soft and nontender. NVI distally.
[2023-11-19 07:54] VITALS: BP 131/65
[2023-11-19] MEDS: VITAMIN B-12 1000 MCG PO (08:31)
[2023-11-19] MEDS: KLONOPIN 1 MG PO (08:31)
[2023-11-19] MEDS: COLACE 100 MG PO ×2 (08:31→21:46)
[2023-11-19] MEDS: COREG 6.25 MG PO ×2 (08:31→21:45)
[2023-11-19] MEDS: SALAGEN 5 MG PO ×3 (08:31→21:46)
[2023-11-19] MEDS: ASPIRIN 325 MG PO (08:31)
[2023-11-19] MEDS: ANCEF 10 IV ×3 (08:32→23:32)
[2023-11-19] MEDS: LASIX 20 MG PO (08:32)
[2023-11-19] MEDS: VITAMIN D3 (cholecalciferol) 25 MCG PO (08:32)
[2023-11-19] MEDS: SENOKOT 8.59999999999999964 MG PO ×2 (08:32→21:45)
[2023-11-19] MEDS: FEOSOL 325 MG PO (08:32)
[2023-11-19] MEDS: TYLENOL 1000 MG PO ×2 (09:52→23:37)
[2023-11-19 09:59] VITALS: BP 102/56; BP 107/62; PULSE 82
--- NOTE | 2023-11-19 11:37 | W.PN.ID1 ---
Date of Service
Date of Service: November 19, 2023
Today's Communication
Continue antibiotics
Assessment / Plan
Right knee PJI 2* MSSA
Elevated CRP
Elevated ESR
Osteoarthritis
HTN
Dyslipidemia
Anxiety
Hx bladder CA
Osteopenia
Hx pulmonary mass
Insomnia
Cognitive defects
Hx L1 vertebral fracture
Recommendations:
Patient cultures reviewed, and reveals presence of MSSA.
Continue cefazolin. Patient will require a 6-week course of IV antibiotics (cefazolin), likely followed by 6 month(vs lifelong) suppression.
Prescription placed on paper chart.
����������������������������������������������������������
Chief Complaint
-: Other (Right knee PJI)
Subjective / Review of Systems
Review of Systems: No Fever and No Chills
Vital Signs / Physical Exam
Vital Signs
Vital Signs
Temp Pulse Resp BP Pulse Ox
98.9 F 76 16 131/65 97
11/19/23 07:54 11/19/23 07:54 11/19/23 07:54 11/19/23 07:54 11/19/23 09:36
Physical Exam
Constitutional: No Acute Distress, Comfortable, Chronically Ill and Non-toxic
Eyes: Sclera Anicteric
Pulmonary: Non Labored; Negative Wheezes
Gastrointestinal: Non Distended
Musculoskeletal: Other (Right leg in immobilizer.)
Skin: Negative Rash or Jaundice
Neurological: Awake and Alert
Psychological: Calm
Objective Data
Lab Data
Lab Results
11/19/23 05:52
11/19/23 05:52
ESR 51 mm/hour (0-20) H 11/17/23 04:48
PT 14.5 Sec (11.4-14.6) 11/15/23 21:53
INR 1.14 11/15/23 21:53
Estimated Creat Clear 61 ml/min 11/19/23 05:52
Lactic Acid Cancelled 11/16/23 01:15
Total Bilirubin 0.6 mg/dl (0.2-1.3) 11/15/23 21:07
AST 19 U/L (14-36) 11/15/23 21:07
ALT < 10 U/L (0-35) 11/15/23 21:07
Alkaline Phosphatase 60 U/L (38-126) 11/15/23 21:07
C-Reactive Protein 52.10 mg/L (0.0-10.00) H 11/17/23 04:48
Most recent labs reviewed.
Micro Results:
11/15/23 21:07 Blood Culture - Preliminary
Blood/Venous No Growth in 72 hours- Final report to follow
11/15/23 21:07 Blood Culture - Preliminary
Blood/Venous No Growth in 72 hours- Final report to follow
11/17/23 07:45 Tissue Culture - Preliminary
Knee - Right No Growth After 18-24 Hours
Gram Stain - Preliminary
11/17/23 07:58 Tissue Culture - Preliminary
Knee - Right No Growth After 18-24 Hours
Gram Stain - Preliminary
11/17/23 07:58 Tissue Culture - Preliminary
Knee - Right No Growth After 18-24 Hours
Gram Stain - Preliminary
11/17/23 07:58 Tissue Culture - Preliminary
Knee - Right No Growth After 18-24 Hours
Gram Stain - Preliminary
11/16/23 02:04 MRSA Screen - Final
Nose No Methicillin Resistant Staphylococcus aureus isolated.
Imaging:
11/15/2023 X-ray right knee: Right knee arthroplasty is seen. Some lucency and fragmentation of the residual medial femoral condyle is noted.
OUTPATIENT KNEE ASPIRATE
Care Review
Plan reviewed with: Physician (Hospitalist)
[2023-11-19 16:00] VITALS: BP 119/53
[2023-11-19] MEDS: TRICOR 145 MG PO (21:46)
[2023-11-19] MEDS: LIPITOR 10 MG PO (21:46)
[2023-11-19] MEDS: NEURONTIN 300 MG PO (21:46)
[2023-11-19 23:00] VITALS: BP 152/82
[2023-11-19] MEDS: FLUSH (NSS) 1 FLUSH IV (23:33)
[2023-11-20] VITALS (7 sets, daily range): BP systolic 110–146; BP diastolic 54–96; PULSE 78; O2SAT 100; BMI 22.0
[2023-11-20 06:03] LABS: Hematocrit 22.4 % (37.0-47.0); Hemoglobin 7.3 g/dL (12.0-16.0); Mean Corp Hgb Conc. 32.6 g/dL (33.0-37.0); Mean Corpuscular Hgb 28.1 pg (27.0-31.0); Mean Corpuscular Volume 86.2 fL (81.0-99.0); Mean Platelet Volume 9.6 fL (7.4-10.4); Platelet Count 420 10^3/uL (130-400); Red Cell Dist. Width 17.6 % (11.5-14.5); White Blood Cell Count 4.3 10^3/uL (4.8-10.8)
[2023-11-20 06:39] LABS: Blood Urea Nitrogen 14 mg/dl (7-17); Calcium 8.5 mg/dl (8.4-10.2); Carbon Dioxide 29 mmol/L (22-30); Chloride 96 mmol/L (98-107); Estimated Creatinine Clearance 61 ml/min; Glucose 79 mg/dl (70-99); Magnesium 2.1 mg/dl (1.6-2.3); Potassium 4.4 mmol/L (3.5-5.1); Sodium 129 mmol/L (135-145); eGFR > 60.00
--- NOTE | 2023-11-20 08:03 | W.PN.UPDATE ---
Update Note
Progress Note Update
Ms. Tovar is POD3 following her right revision TKA for PJI performed by Dr. Arteaga. She is resting comfortably in her chair this morning. She endorses mild pain about the knee, but overall reports she is doing well.
Directed exam of the right lower extremity reveals Aquacel dressing with slight strikethrough of blood, otherwise dry and intact. Mild tenderness to palpation generally about the knee. ROM deferred secondary to healing incision. Calf soft and
nontender. Patient able to plantar and dorsiflex ankle. NVID. VSS, afebrile.
Hgb 7.3 this AM. OR cultures reveal gram stain with many WBC, no organisms. Culture currently negative.
83yo female POD#3 from right revision TKA for PJI with Dr. Arteaga
--WBAT. Ambulate with assistive device. We appreciate the assistance of PT/OT.
--Continue knee immobilizer and limit ROM of knee for now. Will keep knee immobilizer in place to allow for skin healing over the patella (likely 1-2 weeks).
--Follow OR cultures. Gram stain with many WBC, no organisms. Cultures no growth after 48 hours. Continue to follow.
--Continue with antibiotics per ID recommendations. Narrowed to cefazolin only. Anticipate 6 weeks of IV antibiotics
--Hemoglobin 7.3, WBC 4.3 on AM labs. Continue to monitor. Transfusion at discretion of primary team.
--CRP and ESR ordered this AM. Continue to trend.
--Continue with pain management as needed. Apply ice for edema control.
--Recommend aspirin 325mg daily for DVT prophylaxis x4 weeks postop.
--Case Management consult for discharge planning.
--Will continue to follow along.
[2023-11-20] MEDS: SENOKOT 8.59999999999999964 MG PO ×2 (08:04→20:55)
[2023-11-20] MEDS: ANCEF 10 IV ×2 (08:04→17:23)
[2023-11-20] MEDS: SALAGEN 5 MG PO ×3 (08:04→20:55)
[2023-11-20] MEDS: FLUSH (NSS) 2 FLUSH IV ×2 (08:04→17:23)
[2023-11-20] MEDS: ASPIRIN 325 MG PO (08:04)
[2023-11-20] MEDS: KLONOPIN 1 MG PO (08:05)
[2023-11-20] MEDS: LASIX 20 MG PO (08:05)
[2023-11-20] MEDS: FEOSOL 325 MG PO (08:05)
[2023-11-20] MEDS: VITAMIN D3 (cholecalciferol) 25 MCG PO (08:05)
[2023-11-20] MEDS: PROTONIX 40 MG PO (08:05)
[2023-11-20] MEDS: COLACE 100 MG PO ×2 (08:05→20:53)
[2023-11-20] MEDS: COREG 6.25 MG PO ×2 (08:05→20:56)
[2023-11-20] MEDS: VITAMIN B-12 1000 MCG PO (08:05)
[2023-11-20 08:19] LABS: Erythrocyte Sed Rate 52 mm/hour (0-20)
--- NOTE | 2023-11-20 09:26 | PN.CDI ---
CDI
- -
CDI:
Physician Documentation Request
Admit Date: 11/15/23 23:08
Dear Orthopedics,
Please review the following and provide your response in the progress notes.
Clinical Indicators:
The diagnosis of metabolic encephalopathy was documented on 11/15 Ortho Consult but is not consistently noted in subsequent documentation.
- 11/14 ER Physician neuro exam reports no symptoms
- 11/16 Hospitalist 'Neuro: AOx3'
- 11/15 RN note 'aaox3 but forgetful and tearful'
-
Please clarify the following:
____ - Metabolic encephalopathy was present on admission and is now resolved.
____ - Metabolic encephalopathy was present on admission and is still being monitored, evaluated or treated
____ - Metabolic encephalopathy was ruled out
____ - Metabolic encephalopathy is still a likely, suspected, probable diagnosis
____ - Other
Use of terms such as suspected, likely, concern for, or probable (associated with a specific diagnosis that is being evaluated, monitored, or treated as if it exists) are acceptable and can be coded in the inpatient setting, when documented at the
time of discharge.
Thank you,
Chris Gaxiola RN
CDI Specialist
Please use your independent medical judgment in providing your response.
--- NOTE | 2023-11-20 09:29 | CM ---
Addendum entered by Ibeth Valerio 11/20/23 15:49:
Kassi from [facility] called to state that she would accept Bonnie tomorrow and that she would need a COVID test. CM updated physician via tt and facility is requesting patient to come in the am between 11-12. CM provided patient with IMM,
for review. CM will continue to follow for discharge planning needs.
Plan; SNF
Addendum entered by Ibeth Valerio 11/20/23 14:45:
CM sent clinical information to Kassi at [facility]. Patient really wants [facility]. Patient for transfusion today and pending bed availability tomorrow. CM will continue to follow for discharge planning needs.
Original Note:
Patient seen at bedside. CM called to [facility]; no beds last week, vm left asking if availability had changed, [facility] and [facility] have available beds and [facility] had not answered, CM will touch [facility]. CM will continue to follow for discharge
planning needs.
Plan; SNF
--- NOTE | 2023-11-20 12:19 | W.PN.ID1 ---
Date of Service
Date of Service: November 20, 2023
Today's Communication
Continue cefazolin (d#6)
Assessment / Plan
Right knee PJI 2* MSSA
Elevated CRP
Elevated ESR
Osteoarthritis
HTN
Dyslipidemia
Anxiety
Hx bladder CA
Osteopenia
Hx pulmonary mass
Insomnia
Cognitive defects
Hx L1 vertebral fracture
Recommendations:
Patient cultures reviewed, and reveals presence of MSSA.
Continue cefazolin. Patient will require a 6-week course of IV antibiotics (cefazolin), likely followed by 6 month(vs lifelong) suppression.
Prescription placed on paper chart.
Will follow-up in the office in approximately 2 weeks time.
����������������������������������������������������������
Chief Complaint
-: Other (Right knee PJI)
Subjective / Review of Systems
Review of Systems: No Fever and No Chills
Vital Signs / Physical Exam
Vital Signs
Vital Signs
Temp Pulse Resp BP Pulse Ox
97.9 F 75 16 132/61 96
11/20/23 07:25 11/20/23 08:05 11/20/23 07:25 11/20/23 08:05 11/20/23 07:25
Physical Exam
Constitutional: No Acute Distress, Comfortable, Chronically Ill and Non-toxic
Eyes: Pupils Equal, Pupils Round and Sclera Anicteric
Cardiovascular: S1/S2; Negative S3/S4
Pulmonary: Non Labored; Negative Wheezes
Gastrointestinal: Non Distended
Musculoskeletal: Other (Right leg in immobilizer.)
Skin: Negative Rash or Jaundice
Neurological: Awake and Alert
Psychological: Calm
Objective Data
Lab Data
Lab Results
11/20/23 05:00
11/20/23 05:00
ESR 52 mm/hour (0-20) H 11/20/23 07:37
PT 14.5 Sec (11.4-14.6) 11/15/23 21:53
INR 1.14 11/15/23 21:53
Estimated Creat Clear 61 ml/min 11/20/23 05:00
Lactic Acid Cancelled 11/16/23 01:15
Total Bilirubin 0.6 mg/dl (0.2-1.3) 11/15/23 21:07
AST 19 U/L (14-36) 11/15/23 21:07
ALT < 10 U/L (0-35) 11/15/23 21:07
Alkaline Phosphatase 60 U/L (38-126) 11/15/23 21:07
C-Reactive Protein 72.90 mg/L (0.0-10.00) H 11/20/23 07:37
Most recent labs reviewed.
Micro Results:
11/17/23 07:45 Tissue Culture - Final
Knee - Right S aureus-Methicillin Sensitive
Gram Stain - Final
11/17/23 07:58 Tissue Culture - Final
Knee - Right No Growth After 72 Hours
Gram Stain - Final
11/17/23 07:58 Tissue Culture - Final
Knee - Right No Growth After 72 Hours
Gram Stain - Final
11/17/23 07:58 Tissue Culture - Final
Knee - Right No Growth After 72 Hours
Gram Stain - Final
11/15/23 21:07 Blood Culture - Preliminary
Blood/Venous No Growth in 4 days- Final report to follow
11/15/23 21:07 Blood Culture - Preliminary
Blood/Venous No Growth in 4 days- Final report to follow
11/16/23 02:04 MRSA Screen - Final
Nose No Methicillin Resistant Staphylococcus aureus isolated.
Imaging:
11/15/2023 X-ray right knee: Right knee arthroplasty is seen. Some lucency and fragmentation of the residual medial femoral condyle is noted.
OUTPATIENT KNEE ASPIRATE
--- NOTE | 2023-11-20 13:36 | W.PN.HOSP.TC ---
Today's Communication/Plan
-
1 unit PRBC
DC Planning to SNF
Assessment / Plan
Assessment / Plan
Assessment:
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
- s/p OR R knee revision/wash out 11/15
- continue pain control
- continue ASA for DVT ppx x 4 weeks per Ortho
- cultures growing MSSA. Continue Ancef x 6 week per ID (PICC in place)
- WBAT. PT/OT - SNF recommended
Hyponatremia
- continue Lasix, OFR
Acute blood loss anemia on chronic anemia (CYRIL, anemia of CD, and B12 deficiency)
- Hb 7.3, 1 unit ordered
- continue B12 and Iron
Essential Hypertension
- continue carvedilol with hold parameters
Hyperlipidemia
- continue atorvastatin and fenofibrate
Anxiety
- continue clonazepam
DVT ppx: ASA 325 mg per orthopedic
Code Status: Full Code
Anticipated Discharge: 24 - 48 hours
Subjective/Interval History
-
Date of Service: November 20, 2023
Hb 7.3, no acute bleeding noted
agreeable to 1 unit transfusion
Objective Data
-
Labs:
Laboratory Results
11/20/23
05:00
WBC 4.3 L
Hgb 7.3 L
Hct 22.4 L
Plt Count 420 H
Sodium 129 L
Potassium 4.4
Chloride 96 L
Carbon Dioxide 29
BUN 14
Creatinine 0.7
Glucose 79
Calcium 8.5
Vital Signs:
Vital Signs
Temp Pulse Resp BP Pulse Ox
97.9 F 75 16 132/61 96
11/20/23 07:25 11/20/23 08:05 11/20/23 07:25 11/20/23 08:05 11/20/23 07:25
I&O
11/19/23 11/20/23 11/21/23
06:59 06:59 06:59
Intake Total 1859 500 / 500
Balance 1859 500 / 500
Physical Exam
-
General: No Apparent Distress
HEENT: Normocephalic and Atraumatic
Respiratory: Negative Wheezes or Rales
Cardiac: Regular Rhythm and S1/S2
GI: Soft and Nontender
Musculoskeletal: No Edema and Other (RLE in immobilizer)
Neuro: AO x 3
Psych: Calm
Data Reviewed
-
Total Time Spent with Patient (in minutes): 42
Labs: Labs Reviewed by me
[2023-11-20] MEDS: TYLENOL 1000 MG PO (13:58)
[2023-11-20] MEDS: LIPITOR 10 MG PO (20:55)
[2023-11-20] MEDS: NEURONTIN 300 MG PO (20:56)
[2023-11-20] MEDS: TRICOR 145 MG PO (20:56)
[2023-11-21] MEDS: ANCEF 10 IV ×2 (00:01→08:18)
[2023-11-21 04:55] LABS: Hematocrit 26.3 % (37.0-47.0); Mean Corp Hgb Conc. 33.8 g/dL (33.0-37.0); Mean Corpuscular Volume 82.7 fL (81.0-99.0); Mean Platelet Volume 9.4 fL (7.4-10.4); Platelet Count 414 10^3/uL (130-400); Red Blood Cell Count 3.18 10^6/uL (4.20-5.40); Red Cell Dist. Width 17.1 % (11.5-14.5); White Blood Cell Count 5.2 10^3/uL (4.8-10.8)
[2023-11-21 05:17] LABS: Hemoglobin 8.9 g/dL (12.0-16.0)
[2023-11-21 05:27] LABS: Blood Urea Nitrogen 14 mg/dl (7-17); Calcium 8.7 mg/dl (8.4-10.2); Carbon Dioxide 27 mmol/L (22-30); Chloride 98 mmol/L (98-107); Estimated Creatinine Clearance 61 ml/min; Glucose 83 mg/dl (70-99); Potassium 4.1 mmol/L (3.5-5.1); Sodium 130 mmol/L (135-145); eGFR > 60.00
[2023-11-21 05:52] VITALS: BMI 21.9
--- NOTE | 2023-11-21 07:14 | W.PN.ORTHO ---
Today's Communication / Plan
-
83yo female POD#4 from right revision TKA for PJI with Dr. Arteaga
--WBAT. Ambulate with assistive device. We appreciate the assistance of PT/OT.
--Continue knee immobilizer and limit ROM of knee for now. Will keep knee immobilizer in place to allow for skin healing over the patella (likely 1-2 weeks).
--Follow OR cultures. Gram stain with many WBC, no organisms. Cultures with MSSA
--Continue with antibiotics per ID recommendations. Currently, cefazolin only. Will need IV antibiotics for 6 weeks followed by oral vs lifelong suppression
--Hemoglobin 8.9, WBC 5.2 on AM labs. Continue to monitor. Transfusion at discretion of primary team.
--CRP and ESR ordered this AM. Continue to trend.
--Continue with pain management as needed. Apply ice for edema control.
--Recommend aspirin 325mg daily for DVT prophylaxis x4 weeks postop.
--Case Management consult for discharge planning.
--Will continue to follow along.
Assessment
.
Distal Motor Intact: Yes
Dressing:
Clean, dry and intact.
Plan
.
Surgery / Date: Right revision TKA 11/17/23 Dr. Arteaga
DVT Prophylaxis: Aspirin
Activity:
Out of bed.
PT/OT
Subjective
.
.:
Patient resting comfortably in bed this morning. She is overall doing well. She does endorse mild pain in the knee with ambulation
Vital Signs and Labs
.
Vital Signs and Labs:
Lab Results
11/21/23 04:39
11/21/23 04:39
Temp Pulse Resp BP Pulse Ox
97.9 F 68 16 135/65 98
11/20/23 23:33 11/20/23 23:33 11/20/23 23:33 11/20/23 23:33 11/20/23 23:33
PT 14.5 Sec (11.4-14.6) 11/15/23 21:53
INR 1.14 11/15/23 21:53
Non-invasive Hgb result: 9.6
Physical Exam
-
RLE: knee immobilizer in place. KIMI wrap. There is small amount of bloody drainage to the center of the Aquacel, not extending to borders. Expected edema and ecchymosis. ROM deferred. Calf soft and nontender. NVI distally.
[2023-11-21 07:57] VITALS: BP 135/65
[2023-11-21] MEDS: SALAGEN 5 MG PO (08:18)
[2023-11-21] MEDS: FEOSOL 325 MG PO (08:19)
[2023-11-21] MEDS: COLACE 100 MG PO (08:19)
[2023-11-21] MEDS: PROTONIX 40 MG PO (08:19)
[2023-11-21] MEDS: LASIX 20 MG PO (08:19)
[2023-11-21] MEDS: ASPIRIN 325 MG PO (08:19)
[2023-11-21] MEDS: VITAMIN D3 (cholecalciferol) 25 MCG PO (08:19)
[2023-11-21] MEDS: COREG 6.25 MG PO (08:19)
[2023-11-21] MEDS: VITAMIN B-12 1000 MCG PO (08:19)
[2023-11-21] MEDS: KLONOPIN 1 MG PO (08:19)
[2023-11-21] MEDS: SENOKOT 8.59999999999999964 MG PO (08:19)
--- NOTE | 2023-11-21 09:04 | W.PN.HOSP.TC ---
Today's Communication/Plan
-
dc to SNF
Assessment / Plan
Assessment / Plan
Assessment:
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
- s/p OR R knee revision/wash out 11/15
- continue pain control
- continue ASA for DVT ppx x 4 weeks per Ortho
- cultures growing MSSA. Continue Ancef x 6 week per ID (PICC in place)
- WBAT. PT/OT - SNF recommended
Hyponatremia
- continue Lasix, OFR
- repeat lab on Monday
Acute blood loss anemia on chronic anemia (CYRIL, anemia of CD, and B12 deficiency)
- Hb 8.9 s/p 1 unit PRBC
- continue B12 and Iron
- repeat lab on Monday
Essential Hypertension
- continue carvedilol with hold parameters
Hyperlipidemia
- continue atorvastatin and fenofibrate
Anxiety
- continue clonazepam
DVT ppx: ASA 325 mg per orthopedic
Code Status: Full Code
More than 30 minutes spent in discharge including
Final examination of the patient
Summarizing hospital stay
Instructions for continuing care to all relevant caregivers
Preparation of discharge records, prescriptions, and referral forms
Total time spent (in minutes):42
Anticipated Discharge: Today
Subjective/Interval History
-
Date of Service: November 21, 2023
feels ok no complaints presently
Objective Data
-
Labs:
Laboratory Results
11/21/23
04:39
WBC 5.2
Hgb 8.9 L D
Hct 26.3 L
Plt Count 414 H
Sodium 130 L
Potassium 4.1
Chloride 98
Carbon Dioxide 27
BUN 14
Creatinine 0.7
Glucose 83
Calcium 8.7
Vital Signs:
Vital Signs
Temp Pulse Resp BP Pulse Ox
99.6 F 74 16 135/65 99
11/21/23 07:57 11/21/23 07:57 11/21/23 07:57 11/21/23 07:57 11/21/23 07:57
I&O
11/20/23 11/21/23 11/22/23
06:59 06:59 06:59
Intake Total 500 / 500 1870 / 1870
Output Total 800 / 800
Balance 500 / 500 1070 / 1070
Physical Exam
-
General: No Apparent Distress
HEENT: Normocephalic and Atraumatic
Respiratory: Negative Wheezes
Cardiac: Regular Rhythm and S1/S2
GI: Soft
Genito-urinary: No Costovertebral Tender
Musculoskeletal: Other (RLE immobilizer in place)
Neuro: AO x 3
Psych: Calm
Data Reviewed
-
Total Time Spent with Patient (in minutes): 42
Labs: Labs Reviewed by me
[2023-11-21 09:06] LABS: COVID-19 Antigen Negative (Negative)
--- NOTE | 2023-11-21 09:12 | W.DS.TRANS ---
DC Summary - Appointment Clerk
-
Discharge Instructions:
Discharge Diagnosis/Procedures infection of R TKR s/p R knee revision/wash out
11/15
Diet Regular,Restrict fluids to 64 oz
Activity Other activity
Additional Activity WBAT. Ambulate with assistive device. Per
Orthopedics to remain with immobilizer for 2
weeks until seen in office
Other Services PT,OT
Instructions:
Stand-Alone Forms:
Changes to Home Medications: No
Discharge Medications:
DC Medications w/original date entered in [facility]
cholecalciferol (vitamin D3) 25 mcg (1,000 unit) tablet (Vitamin D3) 25 mcg PO DAILY Supplement 10/03/23
fenofibrate nanocrystallized 145 mg tablet 145 mg PO HS High Cholesterol ##0 10/03/23
pilocarpine HCl 5 mg tablet 5 mg PO TID secretions 10/03/23
turmeric root extract 500 mg tablet 500 mg PO DAILY Supplement ##0 10/03/23
nystatin 100,000 unit/gram topical powder 1 applic topical BID candidal #30 grams 10/05/23
furosemide 20 mg tablet 20 mg PO DAILY #30 tabs 10/09/23
aspirin 325 mg tablet 325 mg PO DAILY Blood clot prevention/tx #30 tabs 10/28/23
docusate sodium 100 mg capsule 100 mg PO BID Constipation #30 caps 10/28/23
gabapentin 300 mg capsule 300 mg PO HS Pain #30 caps 10/28/23
acetaminophen 500 mg tablet 1,000 mg PO Q8H PRN mild pain 11/15/23
acetaminophen 500 mg tablet 500 mg PO BID 11/15/23
atorvastatin 10 mg tablet 10 mg PO HS 11/15/23
bisacodyl 10 mg rectal suppository (Dulcolax (bisacodyl)) 10 mg [place] DAILY PRN if no results for MOM 11/15/23
carvedilol 6.25 mg tablet 6.25 mg PO BID 11/15/23
magnesium hydroxide 400 mg/5 mL oral suspension (Milk of Magnesia) 30 ml PO HS PRN if no bm in 3 days 11/15/23
meloxicam 7.5 mg tablet 7.5 mg PO DAILY 11/15/23
sennosides 8.6 mg tablet (senna) 8.6 mg PO BID 11/15/23
trolamine salicylate 10 % topical cream (Aspercreme) 1 applic topical BID 11/15/23
cefazolin 10 gram solution for injection 2 g IV Q8H #126 ea 11/21/23
clonazepam 1 mg tablet 1 mg PO DAILY anxiety #5 tabs 11/21/23
cyanocobalamin (vitamin B-12) 1,000 mcg tablet 1,000 mcg PO DAILY #100 tabs 11/21/23
ferrous sulfate 325 mg (65 mg iron) tablet (FeroSul) 325 mg PO DAILY #100 tabs 11/21/23
pantoprazole 40 mg tablet,delayed release 40 mg PO DAILY #30 tabs 11/21/23
Home Medication Changes
Pending Results: No
Total time spent discharging patient (in min): 44
--- NOTE | 2023-11-21 09:25 | CM ---
Addendum entered by Ruma Welsh 11/21/23 10:52:
Per admissions at [facility] patient has a bed today, patient has been set up for a 12:00 car pick up driver by w/hayde jacobs, spouse has been provided with the cost of transportation and contact information to pay for transport.
[facility]
Report [phone]

Original Note:
Call placed to admissions at [facility] waiting on confirmation that they can take patient today. COVID test completed.
Plan; Await confirmation that there is a bed available for patient today at [facility].
[2023-11-21 11:09] LABS: Erythrocyte Sed Rate 35 mm/hour (0-20)
[2023-11-21 11:54] VITALS: BP 113/60
[2023-11-21] MEDS: TYLENOL 1000 MG PO (11:55)
== END 2023-11-21 12:05 | DRG 470 ==
LOC: 2 SOUTH 23:08
PROVIDERS: Clinical Nurse Specialist Family Health; Internal Medicine; Physician Assistant; Physician Assistant Medical; Radiology Diagnostic Radiology; ADMITTING PHYSICIAN Hospitalist; ATTENDING PHYSICIAN Internal Medicine; CONSULT PHYSICIAN Internal Medicine Infectious Disease; CONSULT PHYSICIAN Orthopaedic Surgery; EMERGENCY PHYSICIAN Emergency Medicine; FAMILY PHYSICIAN Family Medicine
PROC: 0SRC0J9 Replacement of Right Knee Joint with Synthetic Substitute, Cemented, Open Approach (ICD-10-PCS; 2023-11-17)
PROC: 02HV33Z Insertion of Infusion Device into Superior Vena Cava, Percutaneous Approach (ICD-10-PCS; 2023-11-19)
PROC: 30243N1 Transfusion of Nonautologous Red Blood Cells into Central Vein, Percutaneous Approach (ICD-10-PCS; 2023-11-20)
DX: T84.53XA Infection and inflammatory reaction due to internal right knee prosthesis, initial encounter (principal); M00.061 Staphylococcal arthritis, right knee; E87.1 Hypo-osmolality and hyponatremia; D62 Acute posthemorrhagic anemia; B95.62 Methicillin resistant Staphylococcus aureus infection as the cause of diseases classified elsewhere; Y92.9 Unspecified place or not applicable; Y83.1 Surgical operation with implant of artificial internal device as the cause of abnormal reaction of the patient, or of later complication, without mention of misadventure at the time of the procedure; Y79.2 Prosthetic and other implants, materials and accessory orthopedic devices associated with adverse incidents; F32.A Depression, unspecified; F41.0 Panic disorder [episodic paroxysmal anxiety]; D50.8 Other iron deficiency anemias; D63.8 Anemia in other chronic diseases classified elsewhere; E53.8 Deficiency of other specified B group vitamins; E78.5 Hyperlipidemia, unspecified; M85.80 Other specified disorders of bone density and structure, unspecified site; G47.00 Insomnia, unspecified; R91.8 Other nonspecific abnormal finding of lung field; M17.11 Unilateral primary osteoarthritis, right knee; I10 Essential (primary) hypertension; Z87.891 Personal history of nicotine dependence; Z85.51 Personal history of malignant neoplasm of bladder; Z11.52 Encounter for screening for COVID-19; Z79.82 Long term (current) use of aspirin; Z79.1 Long term (current) use of non-steroidal anti-inflammatories (NSAID)
CPT/HCPCS: 71045; 73560; 80048; 80053; 80061; 82607; 82746; 83540; 83550; 83605; 83735; 83935; 84100; 84300; 84443; 85025; 85027; 85610; 85652; 86140; 86850; 86900; 86901; 86920; 87040; 87070; 87147; 87176; 87186; 87205; 87811; 96374; 97116; 97163; 97167; 97530; 97535; 99284; C1713; C1776; P9016

== ENCOUNTER 2023-12-18 23:22 | Inpatient (IN) | payer MEDICARE, OTHER, SELFPAY ==
[2023-12-18 19:40] VITALS: BP 126/75
[2023-12-18 20:18] LABS: % Basophils 0.9 % (0-2); % Eosinophils 19.1 % (0-6); % Immature Granulocytes 0.2 % (0-0.5); % Lymphocytes 10.5 % (20.5-51.1); % Monocytes 16.1 % (1.7-9.3); % Neutrophils 53.2 % (42.2-75.2); Absolute Basophils 0.1 10^3/uL (0-0.2); Absolute Eosinophils 1.1 10^3/uL (0-0.7); Absolute Lymphocytes 0.6 10^3/uL (1.2-3.4); Absolute Monocytes 0.9 10^3/uL (0.1-0.6); Hematocrit 29.4 % (37.0-47.0); Hemoglobin 9.2 g/dL (12.0-16.0); Mean Corp Hgb Conc. 31.3 g/dL (33.0-37.0); Mean Corpuscular Hgb 27.2 pg (27.0-31.0); Mean Platelet Volume 10.7 fL (7.4-10.4); Nucleated Red Blood Cells % 0 %; Platelet Count 215 10^3/uL (130-400); Red Blood Cell Count 3.38 10^6/uL (4.20-5.40); Red Cell Dist. Width 15.5 % (11.5-14.5); White Blood Cell Count 5.7 10^3/uL (4.8-10.8)
[2023-12-18 20:31] LABS: Lactic Acid < 0.5 mmol/L (0.7-2.0)
[2023-12-18 20:40] LABS: ALT (SGPT) < 10 U/L (0-35); AST (SGOT) 31 U/L (14-36); Albumin 3.4 g/dl (3.5-5.0); Alkaline Phosphatase 64 U/L (38-126); Blood Urea Nitrogen 48 mg/dl (7-17); Calcium 8.8 mg/dl (8.4-10.2); Carbon Dioxide 21 mmol/L (22-30); Chloride 96 mmol/L (98-107); Glucose 97 mg/dl (70-99); Potassium 4.8 mmol/L (3.5-5.1); Sodium 129 mmol/L (135-145); Total Bilirubin 0.3 mg/dl (0.2-1.3); Total Protein 6.3 g/dl (6.3-8.2); eGFR 17.19
--- NOTE | 2023-12-18 21:59 | ED.GENMED ---
History of Present Illness
General
Chief Complaint: Abnormal Lab Value
Source: patient
Exam Limitations: none
Time Seen by Provider: 12/18/23 21:07
History of Present Illness
History of Present Illness:
This is a 83 year old female that is brought in by c/o abnormal labs. Patient had a revision of the right knee due to infection. Patient was discharge to [facility] for PT with PICC line on Ancef [id number]. states that they have been doing
blood work daily but today they were told that her Kidney function is abnormal. Denies any fever, chills, chest pain, SOB, abd pain, nausea, vomiting, diarrhea, headache, dizziness, urinary burning.
Past History
Past History
ED Past Medical History: Cancer (Bladder CA), HTN, Psychiatric (Depression, panic disorder) and Other (Numbness arms and legs, Ovarian cyst, Uterine fibroids. )
ED Past Surgical History: Gynecological (Ovarian cyst, Uterine fibroid removed, oophorectomy), Orthopedic (Spacer in back. right knee replacement with washout due to infection), Tonsilectomy, Urological (Bladder surgery) and Other (cataracts, Left
breast biopsy)
Social History
Tobacco: Former smoker
Alcohol: Occasional
Personal:
Living: custodial ([facility] for Rehab)
Review of Systems
Review of Systems
All Other Systems: ROS reviewed and negative except as documented in HPI and ROS
Constitutional: Reports no symptoms; Denies fever or chills
EENT: Reports no symptoms
Respiratory: Reports no symptoms; Denies cough or trouble breathing
Cardiac: Reports no symptoms; Denies chest pain
ABD/GI: Reports no symptoms; Denies abdominal pain, nausea, vomiting or diarrhea
: Reports no symptoms; Denies dysuria, frequency or urgency
Musculoskeletal: Reports no symptoms
Skin: Reports no symptoms
Neurological: Reports no symptoms; Denies dizzy or headache
Psychiatric: Reports no symptoms
Phy Exam
General Physical Exam
General Presentation: no apparent distress
General age: appears stated age
General Skin: warm and dry
General Habitus: elderly
General Mental: alert
General Hydration: appears well hydrated
ENT Exam
ENT Exam: TM's normal, pharynx normal and neck supple
Eye Exam
Eye Exam: EOMI
Cardiovascular Exam
Cardiovascular Exam: regular rate/rhythm, normal peripheral pulses and other (Murmur)
Pulmonary Exam
Pulmonary Exam: lungs clear, no respiratory distress, no rales, chest non tender, no crackles, no rhonchi, no wheezing and no cough
Gastrointestinal Exam
Gastrointestinal Exam: normal bowel sounds, non tender, soft, no organomegaly, no pulsatile mass and non distended
Musculoskeletal Exam
Musculoskeletal Exam: edema (Lower leg +1 pitting. )
Skin Exam
Skin Exam: normal color, warm/dry, no rash, no petechia and other (Right knee incision line clean and dry. Negative for any redness. )
Psychiatric Exam
Psychiatric Exam: normal mood/affect
Course
Orders/Labs/Results
Orders:
Orders
12/18/23 19:57
CRP [C-Reactive Protein] Urgent
Complete Blood Count/With Diff Urgent
Comprehensive Metabolic Panel Urgent
Lactic Acid Urgent
Blood Culture Urgent
RAVEN Source: Blood/Venous
Specimen Description:
Abnormal Lab Results
12/18/23
19:57
RBC 3.38 L 10^6/uL
(4.20-5.40)
Hgb 9.2 L g/dL
(12.0-16.0)
Hct 29.4 L %
(37.0-47.0)
MCHC 31.3 L g/dL
(33.0-37.0)
RDW 15.5 H %
(11.5-14.5)
MPV 10.7 H fL
(7.4-10.4)
Absolute Lymphs (auto) 0.6 L 10^3/uL
(1.2-3.4)
Absolute Monos (auto) 0.9 H 10^3/uL
(0.1-0.6)
Absolute Eos (auto) 1.1 H 10^3/uL
(0-0.7)
Lymphocytes % 10.5 L %
(20.5-51.1)
Monocytes % 16.1 H %
(1.7-9.3)
Eosinophils % 19.1 H %
(0-6)
Sodium 129 L mmol/L
(135-145)
Chloride 96 L mmol/L
(98-107)
Carbon Dioxide 21 L mmol/L
(22-30)
BUN 48 H mg/dl
(7-17)
Creatinine 2.7 H mg/dL
(0.6-1.0)
Lactic Acid < 0.5 L mmol/L
(0.7-2.0)
C-Reactive Protein 81.70 H mg/L
(0.0-10.00)
Albumin 3.4 L g/dl
(3.5-5.0)
12/18/23 19:57
12/18/23 19:57
H/H low but improved form prior labs., Hyponatremia lower when compared to prior labs, Chloride low. Acute renal failure, Lactic acid <0.5, CRP elevated to 81.70.
Vital Signs
Initial and Last Documented VS:
Initial Vital Signs
Temp Pulse Resp BP Pulse Ox
98.6 F 82 20 126/75 99
12/18/23 19:40 12/18/23 19:40 12/18/23 19:40 12/18/23 19:40 12/18/23 19:40
Last Documented Vital Signs
Temp Pulse Resp BP Pulse Ox
98.6 F 82 20 126/75 99
12/18/23 19:40 12/18/23 19:40 12/18/23 19:40 12/18/23 19:40 12/18/23 19:40
MDM/Problems Addressed
Differential Diagnosis Includes:
Abnormal labd, Acute renal failure.
MDM/Problems Addressed:
This is a 83 year old female that was sent to [facility] for Rehab after 2 knee surgeries, one replacement and then a wash out due to infection. Patient has been on Ancef Q8 hours via a PICC line. Had labs done to day and patient was sent in.
Will get labs and admit. Patient notified that she would be admitted.
Chronic conditions affecting care:
NA
Acute Exacerbation and/or Progression of Chronic Illness:
NA
*Pulse Oximetry
Patient hypoxic: no
*EKG
Interpreted by ED Provider?: NA
Rate: EKG- N/A
*Helper Driver Interpretation
Rate: Helper Driver- N/A
*Critical Care Note
Total Time (30-74mins, 75-104mins- exclusive of procedures): Not Applicable
ED Attending Note
-
Portions of this chart may have been created with voice recognition software.� Occasional wrong word or��sound alike� substitutions may have occurred due to the inherent limitations of voice recognition software.
Discharge Plan
Departure
Patient Disposition: Admit
Date of Disposition: 12/18/23
Time of Disposition: 22:11
Admit to: Med/Surg
Presentation/result/management discussed w/ accepting MD/DO: Hospitalist
Patient with high blood pressure during this ER visit?: No
Condition: Good
Covid-19: Not Applicable
Discharge Problem:
Acute renal failure
Prescriptions:
No Action
pilocarpine HCl 5 mg Tablet
5 mg PO TID
fenofibrate nanocrystallized 145 mg Tablet
145 mg PO HS Qty: 0
cholecalciferol (vitamin D3) [Vitamin D3] 25 mcg (1,000 unit) Tablet
25 mcg PO DAILY
turmeric root extract 500 mg Tablet
500 mg PO DAILY Qty: 0
nystatin 100,000 unit/gram powder
1 applic topical BID Qty: 30 0RF
Patient Comments:
used it on 10/23/23
Rx Instructions:
ING folds-bilateral
furosemide 20 mg tablet
20 mg PO DAILY Qty: 30 1RF
Patient Comments:
took 10/24/23
aspirin 325 mg Tablet
325 mg PO DAILY Qty: 30 0RF
Patient Comments:
11/15/2023: from 11/02/23 to 11/26/23 then change to aspirin 81mg po daily
docusate sodium 100 mg Capsule
100 mg PO BID Qty: 30 0RF
gabapentin 300 mg Capsule
300 mg PO HS Qty: 30 0RF
sennosides [senna] 8.6 mg Tablet
8.6 mg PO BID
carvedilol 6.25 mg Tablet
6.25 mg PO BID
atorvastatin 10 mg Tablet
10 mg PO HS
acetaminophen 500 mg Tablet
500 mg PO BID
acetaminophen 500 mg Tablet
1,000 mg PO Q8H PRN (Reason: mild pain)
meloxicam 7.5 mg Tablet
7.5 mg PO DAILY
magnesium hydroxide [Milk of Magnesia] 400 mg/5 mL Suspension
30 ml PO HS PRN (Reason: if no bm in 3 days)
bisacodyl [Dulcolax (bisacodyl)] 10 mg Suppository
10 mg [place] DAILY PRN (Reason: if no results for MOM)
trolamine salicylate [Aspercreme] 10 % Cream
1 applic TOPICAL BID
Patient Comments:
apply to Rt Shoulder and back
cefazolin 10 gram Recon Soln
2 g IV Q8H Qty: 126 0RF
Rx Instructions:
6 weeks
cyanocobalamin (vitamin B-12) 1,000 mcg Tablet
1,000 mcg PO DAILY Qty: 100 0RF
pantoprazole 40 mg Tablet,Delayed Release (Dr/Ec)
40 mg PO DAILY Qty: 30 0RF
ferrous sulfate [FeroSul] 325 mg (65 mg iron) Tablet
325 mg PO DAILY Qty: 100 0RF
clonazepam 1 mg Tablet
1 mg PO DAILY Qty: 5 0RF
Interventions
Interventions:
*Risk Screen - Suicide Last Done: 12/18/23 19:40
*General Assessment Last Done: 12/18/23 19:40
*Neglect/Abuse Screening Last Done: 12/18/23 19:40
Discharge Date and Time
Print Language: LATVIAN
--- NOTE | 2023-12-18 22:11 | HPS.HSE ---
Addendum entered and electronically signed by Tiago Zepeda DO 12/18/23 23:01:
Patient seen and examined independently. Agree with findings and plan as set forth by LEIGHA De La Cruz.
Patient is an 83y F with PMH significant for hypertension, bladder cancer and recent R TKA infection who presents to ED from local [place] for evaluation of abnormal renal function. Patient initially underwent R TKA on 10/24. She developed evidence
for infection and underwent wash out procedure on 11/15. Cultures grew MSSA and patient was started on IV abx with Ancef 2g IV q8. She was discharged to SNF for ongoing IV abx and PT. Patient has had lab monitoring done since that time. Labs were
done this AM and new elevation in SCr was appreciated. Patient was sent to the ED for further evaluation.
Patient states that she feels well. She has some swelling in the RLE which is not significantly changed from prior. No bleeding or discharge from the R knee incision site.
No urinary complaints. No fevers / chills, N/V/D, etc. Patient complains of dry mouth which is a chronic issue for her.
She was previously on fluid restriction for chronic hyponatremia; however, this was lifted last week as her Na had normalized.
Ass:
LOREN likely secondary to Ancef
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
Chronic Hyponatremia
Acute Blood Loss Anemia on Chronic Iron Deficiency Anemia
Benign Hypertension
Dyslipidemia
Anxiety / Depression
Sicca Syndrome
Plan:
Admit for further evaluation and treatment.
Hold further Ancef - which is likely reason for new LOREN.
Begin meropenem instead for now to complete treatment (scheduled for IV abx through 01/01).
ID evaluation for additional recommendations.
Follow exam for any changes - no evidence of discharge, erythema or increased warmth on exam. Note that CRP is elevated from prior.
Nephrology evaluation.
Reinstate fluid restriction.
Will hold Lasix for now given LOREN.
Follow for improvement in Na and SCr.
Continue outpatient medications for BP, mood and dry mouth symptoms.
Original Note:
Family Physician
-
Family Physician:
Chief Complaint
-
abnormal blood work
History of Present Illness
83 year old with PMH for bladder ca, HTN, depression, panic disorder, presented to us with abnormal blood work from [facility]. patient underwent TKR in october. noted to have post op infection. she had right knee revision, washout on 11/15. blood
culture grew MSSA. she was sent on IV ancef for 6 weeks on 11/21/2023. she gets weekly blood work and noted to have elevated creatine. patient noted some clear liquid from her right LE. no drainage from the incision. she has swelling since the
discharge. denied any pain. denied fever, chills, chest pain, sob. denied HEMPHILL, dizzy or syncopal episode. denied abdominal pain, n,v,d. denied dysuria or hematuria.
patient was on fluids restriction, took her of fluids restriction few days ago as her sodium got better. upon arrival cr of 2.7. admitting for further management.
Medical History
Past Medical History
Past Medical History: Reports Other
Additional Past Medical History:
bladder ca
hld
MSSA infection
htn
anxiety
Past Surgical History: Reports Other
Additional Past Surgical History:
right TKA
Social History
Tobacco: Former Smoker
Alcohol: Occasional
Drug: None
Personal:
Living: Assisted Living
Family History
Family History: Not pertinent
Allergies / Home Medications
Allergies reflects when Allergies were last updated in [facility].
Home Medications with original date entered in [facility]
Allergy/Medication List:
Allergies
Allergy/AdvReac Type Severity Reaction Status Date / Time
No Known Allergies Allergy Verified 12/18/23 19:40
Home Medications
cholecalciferol (vitamin D3) 25 mcg (1,000 unit) tablet (Vitamin D3) 25 mcg PO DAILY Supplement 10/03/23
fenofibrate nanocrystallized 145 mg tablet 145 mg PO HS High Cholesterol ##0 10/03/23
pilocarpine HCl 5 mg tablet 5 mg PO TID secretions 10/03/23
turmeric root extract 500 mg tablet 500 mg PO DAILY Supplement ##0 10/03/23
nystatin 100,000 unit/gram topical powder 1 applic topical BID candidal #30 grams 10/05/23
furosemide 20 mg tablet 20 mg PO DAILY #30 tabs 10/09/23
aspirin 325 mg tablet 325 mg PO DAILY Blood clot prevention/tx #30 tabs 10/28/23
docusate sodium 100 mg capsule 100 mg PO BID Constipation #30 caps 10/28/23
gabapentin 300 mg capsule 300 mg PO HS Pain #30 caps 10/28/23
acetaminophen 500 mg tablet 1,000 mg PO Q8H PRN mild pain 11/15/23
acetaminophen 500 mg tablet 500 mg PO BID 11/15/23
atorvastatin 10 mg tablet 10 mg PO HS 11/15/23
bisacodyl 10 mg rectal suppository (Dulcolax (bisacodyl)) 10 mg [place] DAILY PRN if no results for MOM 11/15/23
carvedilol 6.25 mg tablet 6.25 mg PO BID 11/15/23
magnesium hydroxide 400 mg/5 mL oral suspension (Milk of Magnesia) 30 ml PO HS PRN if no bm in 3 days 11/15/23
meloxicam 7.5 mg tablet 7.5 mg PO DAILY 11/15/23
sennosides 8.6 mg tablet (senna) 8.6 mg PO BID 11/15/23
trolamine salicylate 10 % topical cream (Aspercreme) 1 applic topical BID 11/15/23
cefazolin 10 gram solution for injection 2 g IV Q8H #126 ea 11/21/23
clonazepam 1 mg tablet 1 mg PO DAILY anxiety #5 tabs 11/21/23
cyanocobalamin (vitamin B-12) 1,000 mcg tablet 1,000 mcg PO DAILY #100 tabs 11/21/23
ferrous sulfate 325 mg (65 mg iron) tablet (FeroSul) 325 mg PO DAILY #100 tabs 11/21/23
pantoprazole 40 mg tablet,delayed release 40 mg PO DAILY #30 tabs 11/21/23
Review of Systems
-
Constitutional: Reports No Symptoms
EENT: Reports No Symptoms
Respiratory: Reports No Symptoms
Cardiac: Reports No Symptoms
Abdomen/GI: Reports No Symptoms
: Reports No Symptoms
Musculoskeletal: Reports Other (right LE swelling, some weeping noted on LE)
Skin: Reports No Symptoms
Neurological: Reports No Symptoms
Endocrine: Reports No Symptoms
Hematologic/Lymphatic: Reports No Symptoms
Psych: Reports No Symptoms
Physical Exam
Vital Signs
Vital Signs
Temp Pulse Resp BP Pulse Ox
98.6 F 82 20 126/75 99
12/18/23 19:40 12/18/23 19:40 12/18/23 19:40 12/18/23 19:40 12/18/23 19:40
Physical Exam
General: Well Developed, Well Nourished and No Apparent Distress
HEENT: NormoCephalic, Moist mucous membranes and Atraumatic
Respiratory: Clear
Cardiac: S1/S2 and Regular Rhythm; No Murmur or Rub
GI: Soft, Non Tender, Non Distended and Normal Bowel Sounds; No Organomegaly
Rectal: Deferred by Provider
Musculoskeletal: No Clubbing, No Cyanosis and No Edema
Skin: Other (right LE c/d/i swelling)
Neuro: AO x 3 and Nonfocal/grossly intact
Psych: Calm
Laboratory Results
-
12/18/23 19:57
12/18/23 19:57
Laboratory Results
Lactic Acid < 0.5 mmol/L (0.7-2.0) L 12/18/23 19:57
Total Bilirubin 0.3 mg/dl (0.2-1.3) 12/18/23 19:57
AST 31 U/L (14-36) 12/18/23 19:57
ALT < 10 U/L (0-35) 12/18/23 19:57
Alkaline Phosphatase 64 U/L (38-126) 12/18/23 19:57
Data Reviewed
-
Lab Data: Labs Reviewed by me
Impression/Plan
-
#acute renal failure likely from abx
-cr 2.7
-hold Ancef
-monitor labs in am
-nephrology consulted
#acute blood loss anemia/hxt of CYRIL
-hgb 9.2
-will continue b12 and iron
#hyponatremia
-na 130,cr 2.7
-fluid restriction
-hold lasix due to loren
-bmp in am
#Post-Op Infection following Right Total Knee Replacement
- s/p OR R knee revision/wash out 11/15
- continue pain control
- cultures grew MSSA.
- PT/OT
-d/w ID, recommended meropenem
#Essential Hypertension
- continue carvedilol with hold parameters
#Hyperlipidemia
- continue atorvastatin and fenofibrate
#Anxiety
- continue clonazepam
#DVT prophylaxis
-asa
#CODE status
-full code
[2023-12-18 22:47] LABS: Urine Albumin Trace (Neg - Trace); Urine Bilirubin Negative (Negative); Urine Character Clear (Clear); Urine Color Yellow; Urine Glucose Negative (Negative); Urine Ketone Negative (Negative); Urine Leukocyte 1+ (Negative); Urine Nitrite Negative (Negative); Urine Occult Blood 3+ (Negative); Urine Urobilinogen Negative (Neg - 1+)
[2023-12-18 22:56] LABS: Urine Bacteria Moderate (Negative)
[2023-12-18 22:57] LABS: Urine Red Blood Cell 30-40 /HPF (0-2)
[2023-12-18] MEDS: STERILE WATER FOR INJECTION 10 ML IV (23:05)
[2023-12-18] MEDS: MERREM 500 MG IV (23:06)
[2023-12-18 23:17] LABS: Osmolality Urine 218 mOsm/kg (300-900)
[2023-12-18 23:26] VITALS: BP 120/70
[2023-12-19 00:31] VITALS: BP 149/88
[2023-12-19 00:32] VITALS: BMI 25.1
[2023-12-19 04:41] VITALS: BMI 25.1
[2023-12-19 06:43] LABS: Hematocrit 27.4 % (37.0-47.0); Hemoglobin 8.8 g/dL (12.0-16.0); Mean Corp Hgb Conc. 32.1 g/dL (33.0-37.0); Mean Corpuscular Hgb 27.2 pg (27.0-31.0); Mean Corpuscular Volume 84.6 fL (81.0-99.0); Mean Platelet Volume 10.1 fL (7.4-10.4); Platelet Count 212 10^3/uL (130-400); Red Blood Cell Count 3.24 10^6/uL (4.20-5.40); Red Cell Dist. Width 15.4 % (11.5-14.5); White Blood Cell Count 5.1 10^3/uL (4.8-10.8)
[2023-12-19 07:00] VITALS: BP 95/60
[2023-12-19] MEDS: PROTONIX 40 MG PO (08:16)
[2023-12-19] MEDS: COLACE 100 MG PO ×2 (08:17→22:34)
[2023-12-19] MEDS: KLONOPIN 1 MG PO (08:17)
[2023-12-19] MEDS: COREG PO ×2 (08:17→22:38)
[2023-12-19] MEDS: SENOKOT 17.2 MG PO ×2 (08:17→22:34)
[2023-12-19] MEDS: FEOSOL 325 MG PO (08:17)
[2023-12-19] MEDS: SALAGEN 5 MG PO ×3 (08:17→22:33)
[2023-12-19] MEDS: ASPIRIN 325 MG PO (08:17)
[2023-12-19] MEDS: VITAMIN B-12 1000 MCG PO (08:17)
[2023-12-19] MEDS: DESENEX/MITRAZOL/ZEASORB 1 APPLIC TOPICAL ×2 (08:18→22:34)
[2023-12-19] MEDS: TYLENOL 650 MG PO (08:38)
[2023-12-19 09:44] VITALS: PULSE 78; O2SAT 99
--- NOTE | 2023-12-19 10:57 | W.PN.HOSP.TC ---
Today's Communication/Plan
-
urine studies
am labs pending
IV abx
Assessment / Plan
Assessment / Plan
General: Well Developed, Well Nourished and No Apparent Distress
HEENT: NormoCephalic, Moist mucous membranes and Atraumatic
Respiratory: Clear
Cardiac: S1/S2 and Regular Rhythm; No Murmur or Rub
GI: Soft, Non Tender, Non Distended and Normal Bowel Sounds; No Organomegaly
Rectal: Deferred by Provider
Musculoskeletal: No Clubbing, No Cyanosis and No Edema
Skin: R knee scar with steri-strips healing well-no purulent or erythema noted.
Neuro: AO x 3 and Nonfocal/grossly intact
Psych: anxious
#acute renal failure likely from pre-renal vs. renal (AIN due to ANCEF) vs. r/o post renal
-cr 2.7 on admission. Was 0.7 on 11/21/23
-hold Ancef
-Check urine studies (Na, cr, Eosinophils)
-Bladder scan protocol
-Am labs pending.
-nephro recs
#acute blood loss anemia/hxt of CYRIL
-hgb 9.2-->8.2
-will continue b12 and iron
#hyponatremia
-na 130,cr 2.7
-fluid restriction
-hold lasix due to oli
#Post-Op Infection following Right Total Knee Replacement
- s/p OR R knee revision/wash out 11/15
- continue pain control
- cultures grew MSSA.
- PT/OT
- Cont meropenem
-Await ID recs
#Essential Hypertension
- continue carvedilol with hold parameters
#Hyperlipidemia
- continue atorvastatin and fenofibrate
#Anxiety
- continue clonazepam
#DVT prophylaxis
-asa
#CODE status
-full code
Anticipated Discharge: > 48 hours
Subjective/Interval History
-
Date of Service: December 19, 2023
states of chronic R knee discomfort
anxious this morning
Objective Data
-
Labs:
Laboratory Results
12/19/23 12/19/23
05:07 06:06
WBC 5.1
Hgb 8.8 L
Hct 27.4 L
Plt Count 212
Sodium Pending
Potassium Pending
Chloride Pending
Carbon Dioxide Pending
BUN Pending
Creatinine Pending
Glucose Pending
Calcium Pending
Vital Signs:
Vital Signs
Temp Pulse Resp BP Pulse Ox
97.9 F 80 16 95/60 98
12/19/23 07:00 12/19/23 08:17 12/19/23 07:00 12/19/23 08:17 12/19/23 07:00
[2023-12-19 12:03] LABS: Blood Urea Nitrogen 45 mg/dl (7-17); Calcium 8.5 mg/dl (8.4-10.2); Carbon Dioxide 21 mmol/L (22-30); Chloride 98 mmol/L (98-107); Estimated Creatinine Clearance 13 ml/min; Glucose 112 mg/dl (70-99); Potassium 4.6 mmol/L (3.5-5.1); Sodium 129 mmol/L (135-145); eGFR 14.02
[2023-12-19] MEDS: MERREM 500 MG IV (12:09)
[2023-12-19] MEDS: STERILE WATER FOR INJECTION 10 ML IV (12:10)
--- NOTE | 2023-12-19 14:11 | CON.ID ---
Consultation
-
Date/Time Consultation Requested: 12/19/2023 02:11
Date/Time Consultation Performed: 12/19/2023 1348
Requesting Provider: Nkechi Alvarez
Performing Provider: Dr. Aleman
Reason for Consultation: LOREN
Chief Complaint / Past History
History of Present Illness
Bonnie Tovar is an 83-year-old female being evaluated at the request of Nkechi Alvarez in regards to acute kidney injury. History is obtained from chart review, along with patient interview.
The patient is known to the Infectious Diseases service, having been seen in late October for right knee PJI. 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
injections, exercise and activity modification. She underwent a right TKA on 10/25/2023. The procedure went well, with no apparent intraoperative complications (as per operative note) the patient was subsequently discharged to rehab on 10/30/2023.
She reports that a follow-up visit was performed approximately 1 week later, and then again on 11/09 at which time some drainage was noted from the knee. The patient reports that the sample was sent to the lab. The patient was then seen again in
the office on 11/13 and a [facility] microbiology panel was sent, which has been found to be positive for 'Staphylococcus'. Once those results were back, she was sent to to the emergency room for admission.
Her hospital course was significant for intraoperative washout. Cultures ultimately revealed MSSA, and the patient was discharged to [facility] on 11/20, to complete a 6-week course of cefazolin.
During her time at the half-way facility, labs have been reviewed. Her most recent BMP on 12/17 revealed an abrupt rise in her creatinine from 0.86 to 2.57, and she was sent to the emergency room for further evaluation.
At this time, she denies any significant issues. She overall feels well. She denies any pain in the knee. She denies any fevers or chills. She denies any difficulty with the antibiotic infusions.
Past History
Additional Past Medical History:
Osteoarthritis
HTN
Dyslipidemia
Anxiety
Hx bladder CA
Osteopenia
Hx pulmonary mass
Insomnia
Cognitive defects
Hx L1 vertebral fracture
Additional Past Surgical History:
TURB
Left breast biopsy
Oophorectomy
Lumbar spacer
Cataracts
Allergy History:
No Known Allergies Allergy (Verified 12/18/23 19:40)
Medications Reviewed: Yes
Current Antibiotics:
Meropenem
Social History
Tobacco: Former Smoker
Alcohol: Occasional
Drug: None
Review of Systems
Vital Signs
Temp Pulse Resp BP Pulse Ox
97.9 F 80 16 95/60 98
12/19/23 07:00 12/19/23 08:17 12/19/23 07:00 12/19/23 08:17 12/19/23 07:00
Physical Exam
Physical Exam
Constitutional: No Acute Distress, Comfortable and Non-toxic
Eyes: Sclera Anicteric
Cardiovascular: S1/S2; Negative S3/S4
Pulmonary: Non Labored
Gastrointestinal: Soft, Non Tender, Non Distended, Normal Bowel Sounds, No Rebound and No Guarding
Extremities: Edema (trace); Negative Cyanosis or Erythema
Wound: Other (Prior right knee surgical wound well-healed. No open areas. No drainage noted.)
Neurological: Awake and Alert
Psychological: Calm
.
Lab / Diagnostic Study Results
12/19/23 06:06
12/19/23 11:38
Abs Immat Gran (auto) 0.0 10^3/uL (0-0.05) 12/18/23 19:57
Absolute Neuts (auto) 3.0 10^3/uL (1.4-6.5) 12/18/23 19:57
Absolute Lymphs (auto) 0.6 10^3/uL (1.2-3.4) L 12/18/23 19:57
Absolute Monos (auto) 0.9 10^3/uL (0.1-0.6) H 12/18/23 19:57
Absolute Basos (auto) 0.1 10^3/uL (0-0.2) 12/18/23 19:57
Immature Gran % 0.2 % (0-0.5) 12/18/23 19:57
Neutrophils % 53.2 % (42.2-75.2) 12/18/23 19:57
Lymphocytes % 10.5 % (20.5-51.1) L 12/18/23 19:57
Monocytes % 16.1 % (1.7-9.3) H 12/18/23 19:57
Eosinophils % 19.1 % (0-6) H 12/18/23 19:57
Basophils % 0.9 % (0-2) 12/18/23 19:57
Lactic Acid < 0.5 mmol/L (0.7-2.0) L 12/18/23 19:57
C-Reactive Protein 81.70 mg/L (0.0-10.00) H 12/18/23 19:57
Ur Squamous Epith Cells 3-5 /LPF (Few) 12/18/23 22:43
Microbiology Results
Micro:
12/19/23 05:10 MRSA Screen - Pending
Nose
12/18/23 22:43 Urine Culture - Pending
Urine
12/18/23 19:57 Blood Culture - Pending
Blood/Venous
Assessment / Plan
Right knee PJI 2* MSSA
LOREN
- ?ATN 2* cefazolin ?pre-renal ?other
Elevated CRP
Elevated ESR
Osteoarthritis
HTN
Dyslipidemia
Anxiety
Hx bladder CA
Osteopenia
Hx pulmonary mass
Insomnia
Cognitive defects
Hx L1 vertebral fracture
Recommendations:
Continue with meropenem for the present; dose adjusted for renal insufficiency.
Workup of LOREN ongoing. Await further input from Nephrology.
Follow creatinine and estimated creatinine clearance.
--- NOTE | 2023-12-19 14:43 | CM ---
Met with pts and daughter at pts bedside - pt sleeping
Pt from [facility] - bed hold
Pt had knee replacement surgery and then went to rehab
At home prior to surgery pt was assist with adl's, does shopping,cooking, household mgt
DME - rollator, stair climber, cane. cane
SNF - [facility], [place] in past
HH - has had unsure of agency
PCP - Dr Benitez Covarrubias
Pharm - [facility]
Family prefers pt return to [facility] - will send referral in Care Port
Plan - anticipate return to [facility] when medically stable
[2023-12-19 15:00] VITALS: BP 119/57
--- NOTE | 2023-12-19 15:04 | W.CON.NEPH ---
Consultation
-
Date/Time Consultation Requested: December 19, 2023 7 AM
Date/Time Consultation Performed: December 19, 2023 3 PM
Requesting Provider: Dr Santana
Performing Provider: Dr. Andino
Reason for Consultation: Acute kidney injury, hyponatremia
Medical History
-
Chief Complaint: Acute kidney injury
History of Present Illness:
This is an 83-year-old female with hypertension on a monotherapy regimen, recent right knee replacement on October 24 who developed infection and underwent washout procedure on November 15 she was then started antibiotics and sent to subacute nursing facility
for antibiotics and therapy. She was given NSAIDs for pain management prior to therapy at the very least from what they understand. She also has a history of bladder cancer with resection of bladder tumors. While at rehab she had blood work which
had shown elevated creatinine and she was sent to the emergency room. Her creatinine was noted to be 2.8. She has chronic hyponatremia typically on a 40 ounce fluid restriction. Her sodium level 129 at the time of admission.
Past Medical History
bladder ca
hld
MSSA infection
htn
anxiety
right TKA
TURBT
Social History
Tobacco: Former Smoker
Alcohol: Occasional
Family History
Family History: Not Pertinent
Allergies / Home Medications
Allergy/AdvReac Type Severity Reaction Status Date / Time
No Known Allergies Allergy Verified 12/18/23 19:40
�Medication �Instructions �Recorded �Confirmed �Type
cholecalciferol (vitamin D3) 25 25 mcg PO DAILY Supplement 10/03/23 12/18/23 History
mcg (1,000 unit) tablet (Vitamin
D3)
fenofibrate nanocrystallized 145 145 mg PO HS High Cholesterol ##0 10/03/23 12/18/23 History
mg tablet
pilocarpine HCl 5 mg tablet 5 mg PO TID secretions 10/03/23 12/18/23 History
furosemide 20 mg tablet 20 mg PO DAILY #30 tabs 10/09/23 12/18/23 Rx
aspirin 325 mg tablet 325 mg PO DAILY Blood clot 10/28/23 12/18/23 Rx
prevention/tx #30 tabs
docusate sodium 100 mg capsule 100 mg PO BID Constipation #30 caps 10/28/23 12/18/23 Rx
gabapentin 300 mg capsule 300 mg PO HS Pain #30 caps 10/28/23 12/18/23 Rx
acetaminophen 500 mg tablet 1,000 mg PO Q8HPRN PRN mild pain 11/15/23 12/18/23 History
acetaminophen 500 mg tablet 500 mg PO BID 11/15/23 12/18/23 History
atorvastatin 10 mg tablet 10 mg PO HS 11/15/23 12/18/23 History
bisacodyl 10 mg rectal suppository 10 mg WA DAILYPRN PRN if no bm 8 11/15/23 12/18/23 History
(Dulcolax (bisacodyl)) hrs after MOM
carvedilol 6.25 mg tablet 6.25 mg PO BID 11/15/23 12/18/23 History
magnesium hydroxide 400 mg/5 mL 30 ml PO [id number] PRN no bm 2 days 11/15/23 12/18/23 History
oral suspension (Milk of Magnesia)
meloxicam 7.5 mg tablet 7.5 mg PO DAILY 11/15/23 12/18/23 History
sennosides 8.6 mg tablet (senna) 17.2 mg PO BID 11/15/23 12/18/23 History
trolamine salicylate 10 % topical 1 applic topical BID right knee 11/15/23 12/18/23 History
cream (Aspercreme)
clonazepam 1 mg tablet 1 mg PO DAILY anxiety #5 tabs 11/21/23 12/18/23 Rx
cyanocobalamin (vitamin B-12) 1,000 mcg PO DAILY #100 tabs 11/21/23 12/18/23 Rx
1,000 mcg tablet
ferrous sulfate 325 mg (65 mg 325 mg PO DAILY #100 tabs 11/21/23 12/18/23 Rx
iron) tablet (FeroSul)
pantoprazole 40 mg tablet,delayed 40 mg PO DAILY #30 tabs 11/21/23 12/18/23 Rx
release
Saline Flush 10 ml IV TID 12/18/23 12/18/23 History
cefazolin 10 gram solution for 2 g IV TID 12/18/23 12/18/23 History
injection
celecoxib 200 mg capsule 200 mg PO DAILY 12/18/23 12/18/23 History
nystatin 100,000 unit/gram topical 1 applic topical BID B/L inguinal 12/18/23 12/18/23 History
powder folds
sodium phosphates 19 gram-7 118 ml WA DAILYPRN PRN if no bm 8 12/18/23 12/18/23 History
gram/118 mL enema (Fleet Enema) hrs after suppository
Review of Systems
-
No chest pain, no shortness of breath. No abdominal pain. No issues with urine output. Appetite is fair.
All other systems: Negative unless noted
Physical Exam
Vital Signs
Vital Signs
Temp Pulse Resp BP Pulse Ox
97.9 F 80 16 95/60 98
12/19/23 07:00 12/19/23 08:17 12/19/23 07:00 12/19/23 08:17 12/19/23 07:00
Lab Results
WBC 5.1 10^3/uL (4.8-10.8) 12/19/23 06:06
RBC 3.24 10^6/uL (4.20-5.40) L 12/19/23 06:06
Hgb 8.8 g/dL (12.0-16.0) L 12/19/23 06:06
Hct 27.4 % (37.0-47.0) L 12/19/23 06:06
Plt Count 212 10^3/uL (130-400) 12/19/23 06:06
Sodium 129 mmol/L (135-145) L 12/19/23 11:38
Potassium 4.6 mmol/L (3.5-5.1) 12/19/23 11:38
Chloride 98 mmol/L (98-107) 12/19/23 11:38
Carbon Dioxide 21 mmol/L (22-30) L 12/19/23 11:38
BUN 45 mg/dl (7-17) H 12/19/23 11:38
Creatinine 3.2 mg/dL (0.6-1.0) H 12/19/23 11:38
eGFR 14.02 12/19/23 11:38
Glucose 112 mg/dl (70-99) H 12/19/23 11:38
Calcium 8.5 mg/dl (8.4-10.2) 12/19/23 11:38
Albumin 3.4 g/dl (3.5-5.0) L 12/18/23 19:57
Physical Exam
Patient is awake alert oriented and in no distress. Mood and affect were pleasant, insight and judgment were good. Pupils are equal round and reactive to light, extraocular movements are intact, sclera were anicteric. Hearing was normal, ears and
nose are intact. Oropharynx was clear. Neck was supple with trachea midline and no thyromegaly. Heart was regular rate and rhythm without rubs. Lower extremities without edema. Lungs were clear to auscultation bilaterally and with normal
excursion. Abdomen was soft, nontender, with normal active bowel sounds, and no hepatosplenomegaly. Skin was without rash and with normal turgor.
Data Reviewed
-
Medical Tests (Nuc Med, Echo etc): Report Reviewed by me (Echocardiogram on 10/19/2023 shows ejection fraction 50% normal LV, mild mitral regurgitation)
Labs: Labs Reviewed by me (Sodium 129, potassium 4.6, bicarb 21, BUN 45, creatinine 3.2, urine osmolality 218, trace albumin, WBC 5.1, hemoglobin 8.8, platelets 212)
Critical Care Time (in minutes): On 11/21/2023 creatinine 0.7
Assessment/Plan
-
Assessment
Acute kidney injury
hyponatremia chronic
Right knee infection after right knee replacement
Hematuria
Hypotension, relative hypotension
Metabolic acidosis
Plan
I suspect that she may be relatively volume depleted.
Will offer normal saline at this time
Serial BMP
Holding NSAIDs, Lasix at this time
Check serologies.
Check renal ultrasound
Discussed with patient, and family.
[2023-12-19] MEDS: NSS 1000 IV (16:27)
[2023-12-19] MEDS: LIPITOR 10 MG PO (22:33)
[2023-12-19] MEDS: TRICOR 145 MG PO (22:34)
[2023-12-19] MEDS: NEURONTIN 300 MG PO (22:34)
[2023-12-19 23:49] VITALS: BP 136/65
[2023-12-20] MEDS: STERILE WATER FOR INJECTION 10 ML IV ×2 (00:14→11:59)
[2023-12-20] MEDS: MERREM 500 MG IV ×2 (00:14→11:59)
[2023-12-20 04:34] LABS: Hematocrit 25.5 % (37.0-47.0); Hemoglobin 8.3 g/dL (12.0-16.0); Mean Corp Hgb Conc. 32.5 g/dL (33.0-37.0); Mean Corpuscular Hgb 27.2 pg (27.0-31.0); Mean Corpuscular Volume 83.6 fL (81.0-99.0); Mean Platelet Volume 10.1 fL (7.4-10.4); Platelet Count 202 10^3/uL (130-400); Red Blood Cell Count 3.05 10^6/uL (4.20-5.40); Red Cell Dist. Width 15.4 % (11.5-14.5); White Blood Cell Count 4.6 10^3/uL (4.8-10.8)
[2023-12-20 04:57] LABS: Blood Urea Nitrogen 48 mg/dl (7-17); Calcium 8.5 mg/dl (8.4-10.2); Carbon Dioxide 17 mmol/L (22-30); Chloride 102 mmol/L (98-107); Estimated Creatinine Clearance 13 ml/min; Glucose 76 mg/dl (70-99); Potassium 4.8 mmol/L (3.5-5.1); Sodium 130 mmol/L (135-145); eGFR 14.02
[2023-12-20 05:17] LABS: Urine Sodium 45 mmol/L (30-90)
[2023-12-20] MEDS: NSS 1000 IV (06:07)
[2023-12-20 06:44] LABS: Body Fluid for Eosinophils 3% Eosinophils seen
[2023-12-20 08:15] VITALS: BP 122/61
[2023-12-20] MEDS: ASPIRIN 325 MG PO (08:52)
[2023-12-20] MEDS: SALAGEN 5 MG PO ×2 (08:52→21:39)
[2023-12-20] MEDS: PROTONIX 40 MG PO (08:52)
[2023-12-20] MEDS: FEOSOL 325 MG PO (08:53)
[2023-12-20] MEDS: VITAMIN B-12 1000 MCG PO (08:53)
[2023-12-20] MEDS: KLONOPIN 1 MG PO (08:53)
[2023-12-20] MEDS: COREG 6.25 MG PO ×2 (08:53→21:39)
[2023-12-20] MEDS: SENOKOT 17.2 MG PO ×2 (10:05→21:39)
[2023-12-20] MEDS: DESENEX/MITRAZOL/ZEASORB 1 APPLIC TOPICAL ×2 (10:05→21:55)
[2023-12-20] MEDS: COLACE PO (10:05)
--- NOTE | 2023-12-20 11:02 | W.PN.NEPH.PH ---
Today's Communication / Plan
-
follow BMP
Assessment/Plan
-
Assessment
Acute kidney injury
hyponatremia chronic
Right knee infection after right knee replacement
Hematuria
Hypotension, relative hypotension
Metabolic acidosis
Plan
I suspect that she may be volume depleted still
continue IVF bicarb based
Serial BMP
Holding NSAIDs, Lasix at this time still
await serologies.
await renal ultrasound
Discussed with patient, and
check orthostatics
-
-
Date of Service: December 20, 2023
CC / HPI / ROS
-
Chief Complaint:
hyponatremia, LOREN
History of Present Illness:
Na up to 130 with NSS
LOREN/Cr stable at 3.2
acidosis persists
orthostatic this am
Review of Systems:
no CP/SOB
Labs
-
Labs:
WBC 4.6 10^3/uL (4.8-10.8) L 12/20/23 04:18
RBC 3.05 10^6/uL (4.20-5.40) L 12/20/23 04:18
Hgb 8.3 g/dL (12.0-16.0) L 12/20/23 04:18
Hct 25.5 % (37.0-47.0) L 12/20/23 04:18
Plt Count 202 10^3/uL (130-400) 12/20/23 04:18
Sodium 130 mmol/L (135-145) L 12/20/23 04:18
Potassium 4.8 mmol/L (3.5-5.1) 12/20/23 04:18
Chloride 102 mmol/L (98-107) 12/20/23 04:18
Carbon Dioxide 17 mmol/L (22-30) L 12/20/23 04:18
BUN 48 mg/dl (7-17) H 12/20/23 04:18
Creatinine 3.2 mg/dL (0.6-1.0) H 12/20/23 04:18
eGFR 14.02 12/20/23 04:18
Glucose 76 mg/dl (70-99) 12/20/23 04:18
Calcium 8.5 mg/dl (8.4-10.2) 12/20/23 04:18
Albumin 3.4 g/dl (3.5-5.0) L 12/18/23 19:57
Physical Exam
-
Vital Signs:
Vital Signs
Temp Pulse Resp BP Pulse Ox
98.1 F 86 16 122/61 97
12/20/23 08:15 12/20/23 08:15 12/20/23 08:15 12/20/23 08:15 12/20/23 08:15
Cardiovascular:: Regular rate and rhythm
Respiratory:: Bilateral: Coarse
Lung Excursion:: Normal
Abdomen:: Nontender and Soft
Bowel Sounds:: Normal
Extremity Edema:: None: Bilateral:
--- NOTE | 2023-12-20 11:20 | W.PN.HOSP.TC ---
Today's Communication/Plan
-
Cont wtih Bicarb IVF
Ortho
IV abx
pt/ot
Assessment / Plan
Assessment / Plan
General: Well Developed, Well Nourished and No Apparent Distress
HEENT: NormoCephalic, Moist mucous membranes and Atraumatic
Respiratory: Clear
Cardiac: S1/S2 and Regular Rhythm; No Murmur or Rub
GI: Soft, Non Tender, Non Distended and Normal Bowel Sounds; No Organomegaly
Rectal: Deferred by Provider
Musculoskeletal: No Clubbing, No Cyanosis and No Edema
Skin: R knee scar with steri-strips healing well-no purulent or erythema noted.
Neuro: AO x 3 and Nonfocal/grossly intact
Psych: anxious
#acute renal failure likely from pre-renal vs. renal (AIN due to ANCEF) vs. r/o post renal
-cr at 3.2 Was 0.7 on 11/21/23
-hold Ancef
-Urine eos at 3%
-Bladder scan protocol
-renal bladder US pending
-Cont with bicarb IVF
-nephro recs
#acute blood loss anemia/hxt of CYRIL
-hgb 9.2-->8.2
-will continue b12 and iron
#Chronic hyponatremia
-na 130,cr 2.7
-fluid restriction
-hold lasix due to oli
#Pseudomonas UTI
-Cutlure with only 10K CFU
-already on meropenem
#Post-Op Infection following Right Total Knee Replacement
- s/p OR R knee revision/wash out 11/15
- continue pain control
- cultures grew MSSA.
- PT/OT
- Cont meropenem
-Await ID recs
#Essential Hypertension
- continue carvedilol with hold parameters
#Hyperlipidemia
- continue atorvastatin and fenofibrate
#Anxiety
- continue clonazepam
#DVT prophylaxis
-asa
#CODE status
-full code
Anticipated Discharge: > 48 hours
Subjective/Interval History
-
Date of Service: December 20, 2023
states of dizziness with walking
Objective Data
-
Labs:
Laboratory Results
12/20/23
04:18
WBC 4.6 L
Hgb 8.3 L
Hct 25.5 L
Plt Count 202
Sodium 130 L
Potassium 4.8
Chloride 102
Carbon Dioxide 17 L
BUN 48 H
Creatinine 3.2 H
Glucose 76
Calcium 8.5
Vital Signs:
Vital Signs
Temp Pulse Resp BP Pulse Ox
98.1 F 86 16 122/61 97
12/20/23 08:15 12/20/23 08:15 12/20/23 08:15 12/20/23 08:15 12/20/23 08:15
I&O
12/19/23 12/20/23 12/21/23
06:59 06:59 06:59
Intake Total 835 / 835
Balance 835 / 835
--- NOTE | 2023-12-20 11:31 | W.PN.ID1 ---
Date of Service
Date of Service: December 20, 2023
Today's Communication
Continue meropenem
Assessment / Plan
Right knee PJI 2* MSSA
LOREN
- ?ATN 2* cefazolin ?pre-renal ?NSAID ?other
- Creatinine remains elevated today
Elevated CRP
Elevated ESR
Osteoarthritis
HTN
Dyslipidemia
Anxiety
Hx bladder CA
Osteopenia
Hx pulmonary mass
Insomnia
Cognitive defects
Hx L1 vertebral fracture
Recommendations:
Continue with meropenem for the present; dose adjusted for renal insufficiency.
Workup of LOREN ongoing.
Follow creatinine and estimated creatinine clearance.
Chief Complaint
-: Other (Right knee PJI; LOREN)
Subjective / Review of Systems
Review of Systems: No Fever and No Chills
Vital Signs / Physical Exam
Vital Signs
Vital Signs
Temp Pulse Resp BP Pulse Ox
98.1 F 86 16 122/61 97
12/20/23 08:15 12/20/23 08:15 12/20/23 08:15 12/20/23 08:15 12/20/23 08:15
Physical Exam
Constitutional: No Acute Distress, Comfortable and Non-toxic
Eyes: Sclera Anicteric
Cardiovascular: S1/S2; Negative S3/S4
Pulmonary: Non Labored
Gastrointestinal: Non Distended
Skin: Negative Rash or Jaundice
Neurological: Awake, Alert and Oriented
Psychological: Calm
Objective Data
Lab Data
Lab Results
12/20/23 04:18
12/20/23 04:18
Estimated Creat Clear 13 ml/min 12/20/23 04:18
Lactic Acid < 0.5 mmol/L (0.7-2.0) L 12/18/23 19:57
Total Bilirubin 0.3 mg/dl (0.2-1.3) 12/18/23 19:57
AST 31 U/L (14-36) 12/18/23 19:57
ALT < 10 U/L (0-35) 12/18/23 19:57
Alkaline Phosphatase 64 U/L (38-126) 12/18/23 19:57
C-Reactive Protein 81.70 mg/L (0.0-10.00) H 12/18/23 19:57
Most recent labs reviewed.
Micro Results:
12/18/23 22:43 Urine Culture - Preliminary
Urine Pseudomonas species
12/19/23 05:10 MRSA Screen - Final
Nose No Methicillin Resistant Staphylococcus aureus isolated.
12/18/23 19:57 Blood Culture - Preliminary
Blood/Venous No Growth in 24 hours- Final report to follow
12/20/23
04:35
Fluid Eosinophils 3% eosinophils seen
Imaging:
12/20/2023 Renal ultrasound: No nephrolithiasis or obstructive uropathy noted.
Care Review
Plan reviewed with: Physician (Nephrology)
[2023-12-20] MEDS: SODIUM BICARBONATE 1150 MEQ IV ×2 (11:59→21:56)
[2023-12-20 12:03] VITALS: BP 108/66; BP 121/62; BP 143/61; PULSE 76; PULSE 78; PULSE 83
[2023-12-20 13:15] VITALS: BP 116/77; BP 145/67; PULSE 76
--- NOTE | 2023-12-20 15:04 | CM ---
Case management following for d/c planning
Chart reviewed
IV antibiotics
Following labs - LOREN
Ortho
From [facility] - bed hold x2 days pvt pay - family would like for pt to return when ready
Accepted in Care Port to return
CM will follow for d/c needs
Plan - anticipate return to [facility] when medically stable
[2023-12-20 15:47] VITALS: BP 129/55
[2023-12-20] MEDS: SALAGEN PO (17:56)
[2023-12-20] MEDS: NEURONTIN 300 MG PO (21:39)
[2023-12-20] MEDS: LIPITOR 10 MG PO (21:39)
[2023-12-20] MEDS: COLACE 100 MG PO (21:39)
[2023-12-20] MEDS: TRICOR 145 MG PO (21:39)
[2023-12-20 23:14] VITALS: BP 148/71
[2023-12-21] MEDS: MERREM 500 MG IV ×2 (01:06→13:06)
[2023-12-21] MEDS: STERILE WATER FOR INJECTION 10 ML IV ×2 (01:07→13:07)
[2023-12-21 01:31] LABS: Complement C3 115 mg/dl (88-165)
[2023-12-21 04:32] LABS: Hematocrit 22.3 % (37.0-47.0); Hemoglobin 7.6 g/dL (12.0-16.0); Mean Corp Hgb Conc. 34.1 g/dL (33.0-37.0); Mean Corpuscular Hgb 27.3 pg (27.0-31.0); Mean Corpuscular Volume 80.2 fL (81.0-99.0); Mean Platelet Volume 10.2 fL (7.4-10.4); Platelet Count 213 10^3/uL (130-400); Red Blood Cell Count 2.78 10^6/uL (4.20-5.40); Red Cell Dist. Width 15.4 % (11.5-14.5); White Blood Cell Count 4.2 10^3/uL (4.8-10.8)
[2023-12-21 04:55] LABS: Blood Urea Nitrogen 50 mg/dl (7-17); Calcium 8.3 mg/dl (8.4-10.2); Carbon Dioxide 20 mmol/L (22-30); Chloride 98 mmol/L (98-107); Estimated Creatinine Clearance 13 ml/min; Glucose 75 mg/dl (70-99); Potassium 4.6 mmol/L (3.5-5.1); Sodium 127 mmol/L (135-145); eGFR 13.51
[2023-12-21 06:00] VITALS: BMI 25.6
[2023-12-21 07:56] VITALS: BP 119/76
[2023-12-21] MEDS: SENOKOT PO ×2 (08:29→08:33)
[2023-12-21] MEDS: SALAGEN 5 MG PO ×3 (08:29→21:56)
[2023-12-21] MEDS: PROTONIX 40 MG PO (08:29)
[2023-12-21] MEDS: ASPIRIN 325 MG PO (08:29)
[2023-12-21] MEDS: VITAMIN B-12 1000 MCG PO (08:29)
[2023-12-21] MEDS: KLONOPIN 1 MG PO (08:29)
[2023-12-21] MEDS: FEOSOL 325 MG PO (08:30)
[2023-12-21] MEDS: COLACE 100 MG PO ×2 (08:30→21:51)
[2023-12-21] MEDS: DESENEX/MITRAZOL/ZEASORB 1 APPLIC TOPICAL ×2 (08:31→21:52)
[2023-12-21] MEDS: COREG 6.25 MG PO ×2 (08:31→21:51)
[2023-12-21] MEDS: SODIUM BICARBONATE 1150 MEQ IV (08:36)
[2023-12-21 10:19] LABS: Iron 24 ug/dl (37-170)
[2023-12-21 10:28] LABS: Percent Saturation 10 % (20-50); Total Iron Binding Capacity 227 ug/dl (265-497)
--- NOTE | 2023-12-21 10:47 | W.PN.NEPH.PH ---
Today's Communication / Plan
-
Maintain alkaline IV fluids another day
Follow BMP
Check postvoid bladder scan
Assessment/Plan
-
Assessment
Acute kidney injury (suspeted AIN: secondary to NsAIDS vs Ancef)
hyponatremia chronic
Right knee infection after right knee replacement
Hematuria
Hypotension, relative hypotension
Metabolic acidosis
Anemia
Plan
Hyponatremia down to 127, maintain FR, will utilize samsca if needed
continue IVF bicarb based re: metabolic acidosis
Urine output not recorded,weights up
check PVR bladders scan
LOREN persists
Serial BMP
Holding NSAIDs, Lasix at this time still
await serologies
renal ultrasound: no hydronephrosis
Discussed with patient, and
-
-
Date of Service: December 21, 2023
CC / HPI / ROS
-
Chief Complaint:
hyponatremia, LOREN
History of Present Illness:
Na up to 130 with NSS
LOREN/Cr worse at 3.3
acidosis persists
Review of Systems:
no CP/SOB
Labs
-
Labs:
WBC 4.2 10^3/uL (4.8-10.8) L 12/21/23 04:17
RBC 2.78 10^6/uL (4.20-5.40) L 12/21/23 04:17
Hgb 7.6 g/dL (12.0-16.0) L 12/21/23 04:17
Hct 22.3 % (37.0-47.0) L 12/21/23 04:17
Plt Count 213 10^3/uL (130-400) 12/21/23 04:17
Sodium 127 mmol/L (135-145) L 12/21/23 04:17
Potassium 4.6 mmol/L (3.5-5.1) 12/21/23 04:17
Chloride 98 mmol/L (98-107) 12/21/23 04:17
Carbon Dioxide 20 mmol/L (22-30) L 12/21/23 04:17
BUN 50 mg/dl (7-17) H 12/21/23 04:17
Creatinine 3.3 mg/dL (0.6-1.0) H 12/21/23 04:17
eGFR 13.51 12/21/23 04:17
Glucose 75 mg/dl (70-99) 12/21/23 04:17
Calcium 8.3 mg/dl (8.4-10.2) L 12/21/23 04:17
Albumin 3.4 g/dl (3.5-5.0) L 12/18/23 19:57
Physical Exam
-
Vital Signs:
Vital Signs
Temp Pulse Resp BP Pulse Ox
98 F 77 16 119/76 98
12/21/23 07:56 12/21/23 08:31 12/21/23 07:56 12/21/23 08:31 12/21/23 07:56
Cardiovascular:: Regular rate and rhythm
Respiratory:: Bilateral: CTA
Lung Excursion:: Normal
Abdomen:: Nontender and Soft
Bowel Sounds:: Normal
Extremity Edema:: None: Bilateral:
Dee Catheter: No
--- NOTE | 2023-12-21 11:26 | W.PN.HOSP.TC ---
Today's Communication/Plan
-
IVF
IV abx
trend cr
trend h/h
Assessment / Plan
Assessment / Plan
General: Well Developed, Well Nourished and No Apparent Distress
HEENT: NormoCephalic, Moist mucous membranes and Atraumatic
Respiratory: Clear
Cardiac: S1/S2 and Regular Rhythm; No Murmur or Rub
GI: Soft, Non Tender, Non Distended and Normal Bowel Sounds; No Organomegaly
Rectal: Deferred by Provider
Musculoskeletal: No Clubbing, No Cyanosis and No Edema
Skin: R knee scar with steri-strips healing well-no purulent or erythema noted.
Neuro: AO x 3 and Nonfocal/grossly intact
Psych: anxious
#acute renal failure likely from pre-renal vs. renal (AIN due to ANCEF) vs. r/o post renal
-cr at 3.3 Was 0.7 on 11/21/23
-hold Ancef
-Urine eos at 3%
-Bladder scan protocol
-renal bladder US negative for hydro
-Cont with bicarb IVF
-nephro recs
#acute blood loss anemia/hxt of CYRIL
-hgb 9.2-->7.6
-No luminal bleeding noted. may be some component of dilutional due to IVF and recentl blood loss due to surgery
-will continue b12 and iron
#Chronic hyponatremia
-na 127
-fluid restriction
-hold lasix due to oli
#Pseudomonas UTI
-Cutlure with only 10K CFU
-already on meropenem
#Post-Op Infection following Right Total Knee Replacement
- s/p OR R knee revision/wash out 11/15
- continue pain control
- cultures grew MSSA.
- PT/OT
- Cont meropenem
-Await ID recs
#Essential Hypertension
- continue carvedilol with hold parameters
#Hyperlipidemia
- continue atorvastatin and fenofibrate
#Anxiety
- continue clonazepam
#DVT prophylaxis
-asa
#CODE status
-full code
d/w with spouse at bedside
Anticipated Discharge: > 48 hours
Subjective/Interval History
-
Date of Service: December 21, 2023
denies knee pain
Objective Data
-
Labs:
Laboratory Results
12/21/23
04:17
WBC 4.2 L
Hgb 7.6 L
Hct 22.3 L
Plt Count 213
Sodium 127 L
Potassium 4.6
Chloride 98
Carbon Dioxide 20 L
BUN 50 H
Creatinine 3.3 H
Glucose 75
Calcium 8.3 L
Vital Signs:
Vital Signs
Temp Pulse Resp BP Pulse Ox
98 F 77 16 119/76 98
12/21/23 07:56 12/21/23 08:31 12/21/23 07:56 12/21/23 08:31 12/21/23 07:56
I&O
12/20/23 12/21/23 12/22/23
06:59 06:59 06:59
Intake Total 835 / 835 2280 / 2280
Balance 835 / 835 2280 / 2280
[2023-12-21 13:33] LABS: Folate 4.8 ng/ml (2.76-20); Vitamin B12 449 pg/ml (239-931)
[2023-12-21 15:55] VITALS: BP 128/57
[2023-12-21] MEDS: LIPITOR 10 MG PO (21:51)
[2023-12-21] MEDS: NEURONTIN 300 MG PO (21:51)
[2023-12-21] MEDS: SENOKOT 17.2 MG PO (21:51)
[2023-12-21] MEDS: TRICOR 145 MG PO (21:56)
[2023-12-21 23:46] VITALS: BP 130/60
[2023-12-22] MEDS: MERREM 500 MG IV (00:55)
[2023-12-22] MEDS: STERILE WATER FOR INJECTION 10 ML IV (00:56)
[2023-12-22 05:25] LABS: Hematocrit 23.8 % (37.0-47.0); Hemoglobin 7.9 g/dL (12.0-16.0); Mean Corp Hgb Conc. 33.2 g/dL (33.0-37.0); Mean Corpuscular Hgb 27.5 pg (27.0-31.0); Mean Corpuscular Volume 82.9 fL (81.0-99.0); Mean Platelet Volume 10.3 fL (7.4-10.4); Platelet Count 203 10^3/uL (130-400); Red Blood Cell Count 2.87 10^6/uL (4.20-5.40); Red Cell Dist. Width 15.3 % (11.5-14.5); White Blood Cell Count 4.3 10^3/uL (4.8-10.8)
[2023-12-22 06:14] LABS: Blood Urea Nitrogen 48 mg/dl (7-17); Calcium 8.2 mg/dl (8.4-10.2); Carbon Dioxide 23 mmol/L (22-30); Chloride 93 mmol/L (98-107); Estimated Creatinine Clearance 12 ml/min; Glucose 75 mg/dl (70-99); Potassium 4.7 mmol/L (3.5-5.1); Sodium 124 mmol/L (135-145); eGFR 12.59
[2023-12-22 06:26] VITALS: BMI 26.1
[2023-12-22 07:00] VITALS: BP 130/71
[2023-12-22] MEDS: SENOKOT 17.2 MG PO (08:30)
[2023-12-22] MEDS: COLACE 100 MG PO (08:30)
[2023-12-22] MEDS: PROTONIX 40 MG PO (08:30)
[2023-12-22] MEDS: ASPIRIN 325 MG PO (08:30)
[2023-12-22] MEDS: FEOSOL 325 MG PO (08:30)
[2023-12-22] MEDS: SALAGEN 5 MG PO ×3 (08:30→22:35)
[2023-12-22] MEDS: KLONOPIN 1 MG PO (08:30)
[2023-12-22] MEDS: VITAMIN B-12 1000 MCG PO (08:30)
[2023-12-22] MEDS: COREG 6.25 MG PO ×2 (08:31→21:06)
[2023-12-22] MEDS: DESENEX/MITRAZOL/ZEASORB 1 APPLIC TOPICAL ×2 (08:31→21:06)
--- NOTE | 2023-12-22 09:07 | W.PN.NEPH.PH ---
Today's Communication / Plan
-
40 mg IV Lasix x 1
Maintain fluid restrict
Place Mosley catheter
Assessment/Plan
-
Assessment
Acute kidney injury (suspeted AIN: secondary to NSAIDs vs Ancef)
hyponatremia chronic
Right knee infection after right knee replacement
Hematuria
Hypotension, relative hypotension
Metabolic acidosis
Anemia
Plan
Hyponatremia down to 124, maintain FR, will utilize samsca if needed
LOREN worsening up to 3.5,place bladder scan protocol with low threshold for mosley catheter
Urine output not recorded,weights up
Serial BMP
Holding NSAIDs, Lasix at this time still
await serologies
renal ultrasound: no hydronephrosis
will provide 40mg IV lasix
Patient at high clinical risk with worsening renal failure and hyponatremia requiring IV diuretics and Mosley catheter placed
-
-
Date of Service: December 22, 2023
CC / HPI / ROS
-
Chief Complaint:
hyponatremia, LOREN
History of Present Illness:
Na down to 124
LOREN/Cr worse at 3.5
acidosis improved
Review of Systems:
no CP/SOB
Urine output not recorded
Weights up
Labs
-
Labs:
WBC 4.3 10^3/uL (4.8-10.8) L 12/22/23 05:01
RBC 2.87 10^6/uL (4.20-5.40) L 12/22/23 05:01
Hgb 7.9 g/dL (12.0-16.0) L 12/22/23 05:01
Hct 23.8 % (37.0-47.0) L 12/22/23 05:01
Plt Count 203 10^3/uL (130-400) 12/22/23 05:01
Sodium 124 mmol/L (135-145) L 12/22/23 05:01
Potassium 4.7 mmol/L (3.5-5.1) 12/22/23 05:01
Chloride 93 mmol/L (98-107) L 12/22/23 05:01
Carbon Dioxide 23 mmol/L (22-30) 12/22/23 05:01
BUN 48 mg/dl (7-17) H 12/22/23 05:01
Creatinine 3.5 mg/dL (0.6-1.0) H 12/22/23 05:01
eGFR 12.59 12/22/23 05:01
Glucose 75 mg/dl (70-99) 12/22/23 05:01
Calcium 8.2 mg/dl (8.4-10.2) L 12/22/23 05:01
Albumin 3.4 g/dl (3.5-5.0) L 12/18/23 19:57
Physical Exam
-
Vital Signs:
Vital Signs
Temp Pulse Resp BP Pulse Ox
98.7 F 80 17 130/71 97
12/22/23 07:00 12/22/23 08:31 12/22/23 07:00 12/22/23 08:31 12/22/23 07:00
Cardiovascular:: Regular rate and rhythm
Respiratory:: Bilateral: CTA
Lung Excursion:: Normal
Abdomen:: Nontender and Soft
Bowel Sounds:: Normal
Extremity Edema:: None: Bilateral:
Mosley Catheter: No
--- NOTE | 2023-12-22 10:14 | W.PN.ID1 ---
Date of Service
Date of Service: December 22, 2023
Today's Communication
Continue antibiotics. See below�
Assessment / Plan
Right knee PJI 2* MSSA
- On abx through 12/29/23
LOREN
- ?ATN 2* cefazolin ?pre-renal ?NSAID ?other
- Creatinine remains elevated today
Elevated CRP
Elevated ESR
Osteoarthritis
HTN
Dyslipidemia
Anxiety
Hx bladder CA
Osteopenia
Hx pulmonary mass
Insomnia
Cognitive defects
Hx L1 vertebral fracture
Recommendations:
Continue antibiotics. Patient reports feeling 'woozy' today; question whether this is an ADR from meropenem.
Discontinue further meropenem and transition to daptomycin 700 mg q48h through 12/29/2023.
Check baseline CK. Hold statin while remains on daptomycin.
Urine culture reveals growth of Pseudomonas aeruginosa, but colony count is 10,000 CFU/mL and not significant. No need to treat.
Workup of LOREN ongoing.
Follow creatinine and estimated creatinine clearance.
����������������������������������������������������������
Chief Complaint
-: Other (Right knee PJI; LOREN)
Subjective / Review of Systems
Patient seen and examined. Reports feeling slightly 'woozy' today.
Review of Systems: No Fever and No Chills
Vital Signs / Physical Exam
Vital Signs
Vital Signs
Temp Pulse Resp BP Pulse Ox
98.7 F 80 17 130/71 97
12/22/23 07:00 12/22/23 08:31 12/22/23 07:00 12/22/23 08:31 12/22/23 07:00
Physical Exam
Constitutional: No Acute Distress, Comfortable and Chronically Ill
Eyes: Sclera Anicteric
Cardiovascular: S1/S2; Negative S3/S4
Pulmonary: Non Labored
Gastrointestinal: Non Distended
Extremities: Other (Right knee with minimal to no significant warmth. 2 Steri-Strips remain in place. No drainage or open wounds.)
Skin: Negative Rash or Jaundice
Wound: Other
Neurological: Awake, Alert and Oriented
Psychological: Calm
Objective Data
Lab Data
Lab Results
12/22/23 05:01
12/22/23 05:01
Estimated Creat Clear 12 ml/min 12/22/23 05:01
Lactic Acid < 0.5 mmol/L (0.7-2.0) L 12/18/23 19:57
Total Bilirubin 0.3 mg/dl (0.2-1.3) 12/18/23 19:57
AST 31 U/L (14-36) 12/18/23 19:57
ALT < 10 U/L (0-35) 12/18/23 19:57
Alkaline Phosphatase 64 U/L (38-126) 12/18/23 19:57
C-Reactive Protein 81.70 mg/L (0.0-10.00) H 12/18/23 19:57
Most recent labs reviewed.
Micro Results:
12/18/23 19:57 Blood Culture - Preliminary
Blood/Venous No Growth in 72 hours- Final report to follow
12/18/23 22:43 Urine Culture - Final
Urine Pseudomonas aeruginosa (10K cfu/mL)
12/19/23 05:10 MRSA Screen - Final
Nose No Methicillin Resistant Staphylococcus aureus isolated.
12/20/23
04:35
Fluid Eosinophils 3% eosinophils seen
Imaging:
12/20/2023 Renal ultrasound: No nephrolithiasis or obstructive uropathy noted.
Care Review
Plan reviewed with: Physician (Nephrology)
--- NOTE | 2023-12-22 10:47 | W.PN.HOSP.TC ---
Today's Communication/Plan
-
lasix
daptomycin
hold statin
trend cr
ortho
fall precaution
Assessment / Plan
Assessment / Plan
General: Well Developed, Well Nourished and No Apparent Distress
HEENT: NormoCephalic, Moist mucous membranes and Atraumatic
Respiratory: Clear
Cardiac: S1/S2 and Regular Rhythm; No Murmur or Rub
GI: Soft, Non Tender, Non Distended and Normal Bowel Sounds; No Organomegaly
Rectal: Deferred by Provider
Musculoskeletal: No Clubbing, No Cyanosis and No Edema
Skin: R knee scar with steri-strips healing well-no purulent or erythema noted.
Neuro: AO x 3 and Nonfocal/grossly intact
Psych: anxious
#acute renal failure likely from pre-renal vs. renal (AIN due to ANCEF) vs. r/o post renal
-cr at 3.5 Was 0.7 on 11/21/23
-hold Ancef
-Urine eos at 3%
-Bladder scan protocol -around 200cc.
-renal bladder US negative for hydro
-s/p bicarb IVF
-Plan for 40mg IV lasix and with low threshold for mosley catheter placement
-nephro recs
#Lightheadedness
-meropenem stopped as one of the S/E is lightheadedness
-check orthos
-Fall precaution
#acute blood loss anemia/hxt of CYRIL
-hgb 9.2-->7.9
-No luminal bleeding noted. may be some component of dilutional due to IVF and recent blood loss due to surgery
-will continue b12 and iron
#Acute on Chronic hyponatremia
-na 124
-lasix today
-trend bmp
#Asymptomatic bacteriuria with pseudomonas
-Culture with only 10K CFU
-not true infection.
#Post-Op Infection following Right Total Knee Replacement
- s/p OR R knee revision/wash out 11/15
- continue pain control
- cultures grew MSSA.
- PT/OT
- Off meropenem and now started on daptomycin
-Await ID recs
#Essential Hypertension
- continue carvedilol with hold parameters
#Hyperlipidemia
- continue atorvastatin and fenofibrate
#Anxiety
- continue clonazepam
#DVT prophylaxis
-asa
#CODE status
-full code
d/w with spouse at bedside on 12/20
Anticipated Discharge: > 48 hours
Subjective/Interval History
-
Date of Service: December 22, 2023
Feeling 'wooziness' upon waking up this morning
no nausea or vomiting or headache
slept well overnight
bladder scan with around 200cc
Objective Data
-
Labs:
Laboratory Results
12/22/23
05:01
WBC 4.3 L
Hgb 7.9 L
Hct 23.8 L
Plt Count 203
Sodium 124 L
Potassium 4.7
Chloride 93 L
Carbon Dioxide 23
BUN 48 H
Creatinine 3.5 H
Glucose 75
Calcium 8.2 L
Vital Signs:
Vital Signs
Temp Pulse Resp BP Pulse Ox
98.7 F 80 17 130/71 97
12/22/23 07:00 12/22/23 08:31 12/22/23 07:00 12/22/23 08:31 12/22/23 07:00
I&O
12/21/23 12/22/23 12/23/23
06:59 06:59 06:59
Intake Total 2280 / 2280 1480 / 1480
Balance 2280 / 2280 1480 / 1480
Data Reviewed
-
Total Time Spent with Patient (in minutes): 55
[2023-12-22] MEDS: LASIX 40 MG IV (11:14)
[2023-12-22] MEDS: LASIX IV (11:26)
[2023-12-22] MEDS: CUBICIN 14 MG IV (13:03)
[2023-12-22 14:31] VITALS: BP 130/65
[2023-12-22 15:37] VITALS: BP 122/54; BP 129/59; BP 131/54; BP 139/59; PULSE 72; PULSE 77; PULSE 82; O2SAT 99
--- NOTE | 2023-12-22 16:12 | CM ---
Case management following for d/c planning
Chart reviewed, spoke with pt and family at bedside
Discussed possibility of pt going home with services when medically ready
PT continues to recommend SNF
Family aware - currently a bed home at [facility] - family will discuss/review bed hold status
CM will cont to follow for d/c needs
Plan - anticipate return to [facility] when medically ready
[2023-12-22 17:20] LABS: Myeloperoxidase Antibody 0 AU/mL (0-19); Serine Protease-3, IgG 155 AU/mL (0-19)
[2023-12-22] MEDS: COLACE PO (21:02)
[2023-12-22] MEDS: SENOKOT PO (21:02)
[2023-12-22] MEDS: TRICOR 145 MG PO (22:35)
[2023-12-22] MEDS: NEURONTIN 300 MG PO (22:35)
[2023-12-22 23:30] VITALS: BP 133/68
[2023-12-23 05:41] LABS: Hematocrit 24.6 % (37.0-47.0); Hemoglobin 8.1 g/dL (12.0-16.0); Mean Corp Hgb Conc. 32.9 g/dL (33.0-37.0); Mean Corpuscular Hgb 26.9 pg (27.0-31.0); Mean Corpuscular Volume 81.7 fL (81.0-99.0); Mean Platelet Volume 9.9 fL (7.4-10.4); Platelet Count 228 10^3/uL (130-400); Red Blood Cell Count 3.01 10^6/uL (4.20-5.40); Red Cell Dist. Width 15.2 % (11.5-14.5)
[2023-12-23 06:06] LABS: Blood Urea Nitrogen 52 mg/dl (7-17); Calcium 8.4 mg/dl (8.4-10.2); Carbon Dioxide 21 mmol/L (22-30); Chloride 95 mmol/L (98-107); Creatine Phosphokinase 41 U/L (30-135); Estimated Creatinine Clearance 11 ml/min; Glucose 84 mg/dl (70-99); Potassium 4.2 mmol/L (3.5-5.1); Sodium 126 mmol/L (135-145)
[2023-12-23 07:00] VITALS: BP 127/59
[2023-12-23] MEDS: SALAGEN 5 MG PO ×3 (08:50→20:47)
[2023-12-23] MEDS: VITAMIN B-12 1000 MCG PO (08:50)
[2023-12-23] MEDS: KLONOPIN 1 MG PO (08:50)
[2023-12-23] MEDS: COREG 6.25 MG PO ×2 (08:50→20:47)
[2023-12-23] MEDS: ASPIRIN 325 MG PO (08:50)
[2023-12-23] MEDS: PROTONIX 40 MG PO (08:50)
[2023-12-23] MEDS: COLACE PO ×2 (08:54→20:11)
[2023-12-23] MEDS: SENOKOT PO ×2 (08:54→20:12)
[2023-12-23] MEDS: DESENEX/MITRAZOL/ZEASORB 1 APPLIC TOPICAL ×2 (08:55→20:46)
--- NOTE | 2023-12-23 10:15 | W.PN.HOSP.TC ---
Today's Communication/Plan
-
Daily wt ordered
samsca
trend bmp
iv dapto
Assessment / Plan
Assessment / Plan
General: Well Developed, Well Nourished and No Apparent Distress
HEENT: NormoCephalic, Moist mucous membranes and Atraumatic
Respiratory: Clear
Cardiac: S1/S2 and Regular Rhythm; No Murmur or Rub
GI: Soft, Non Tender, Non Distended and Normal Bowel Sounds; No Organomegaly
Rectal: Deferred by Provider
Musculoskeletal: No Clubbing, No Cyanosis and No Edema
Skin: R knee scar with steri-strips healing well-no purulent or erythema noted.
Neuro: AO x 3 and Nonfocal/grossly intact
Psych: anxious
#acute renal failure likely from pre-renal vs. renal (AIN due to ANCEF) vs. r/o post renal
-cr at 3.8 Was 0.7 on 11/21/23
-hold Ancef
-Urine eos at 3%
-Bladder scan protocol -around 200cc.
-renal bladder US negative for hydro
-s/p bicarb IVF
-s/p 40mg IV lasix
-PR3 Anca elevated. ?Possibility of AANC vasculitis overlapping wtih Sjogren. Agreee may require renal bx.
-nephro recs
#Acute on Chronic hyponatremia
-na 126 s/p 40mg lasix on 12/21
-Plan for samsca today
-trend bmp
#Lightheadedness
-meropenem stopped as one of the S/E is lightheadedness
-Fall precaution
-resolved
#acute blood loss anemia/hxt of CRYIL
-hgb 9.2-->7.9
-No luminal bleeding noted. may be some component of dilutional due to IVF and recent blood loss due to surgery
-will continue b12 and iron
#Asymptomatic bacteriuria with pseudomonas
-Culture with only 10K CFU
-not true infection.
#Post-Op Infection following Right Total Knee Replacement
- s/p OR R knee revision/wash out 11/15
- continue pain control
- cultures grew MSSA.
- PT/OT
- Off meropenem and now started on daptomycin. Statin stopped while on dapto
-Await ID recs
#Essential Hypertension
- continue carvedilol with hold parameters
#Hyperlipidemia
- continue atorvastatin and fenofibrate
#Anxiety
- continue clonazepam
#DVT prophylaxis
-asa
#CODE status
-full code
d/w with spouse at bedside on 12/20
Anticipated Discharge: > 48 hours
Subjective/Interval History
-
Date of Service: December 23, 2023
oob in chair
tolerating diet
Objective Data
-
Labs:
Laboratory Results
12/23/23
05:25
WBC 4.0 L
Hgb 8.1 L
Hct 24.6 L
Plt Count 228
Sodium 126 L
Potassium 4.2
Chloride 95 L
Carbon Dioxide 21 L
BUN 52 H
Creatinine 3.8 H
Glucose 84
Calcium 8.4
Vital Signs:
Vital Signs
Temp Pulse Resp BP Pulse Ox
98.9 F 74 14 127/59 97
12/23/23 07:00 12/23/23 07:00 12/23/23 07:00 12/23/23 07:00 12/23/23 07:00
I&O
12/22/23 12/23/23 12/24/23
06:59 06:59 06:59
Intake Total 1480 / 1480 1140 / 1140
Balance 1480 / 1480 1140 / 1140
--- NOTE | 2023-12-23 10:36 | W.PN.NEPH.PH ---
Today's Communication / Plan
-
Follow BMP
Samsca 7.5 mg provided
Bladder scan protocol and action
Assessment/Plan
-
Assessment
Acute kidney injury (suspeted AIN: secondary to NSAIDs vs Ancef)
hyponatremia chronic
Right knee infection after right knee replacement
Hematuria
Hypotension, relative hypotension
Metabolic acidosis
Anemia
Plan
Hyponatremia with modest improvement to 120s maintain FR, will utilize samsca today to facilitate free water excretion 7.5mg
LOREN worsening up to 3.8,
I need Dee catheter placement tomorrow accurately assess
Urine output not recorded, weights not obtained
OK-3 antibody elevated 155, possibility of ANCA vasculitis noted, may require kidney biopsy
Serial BMP
Holding NSAIDs
renal ultrasound: no hydronephrosis
Now on daptomycin for knee infection
Patient at high clinical risk with worsening renal failure and hyponatremia requiring IV diuretics and aggressive bladder scan to be continued
Plan including biopsy possibility on Monday discussed in detail with patient and at bedside
40 minutes total care time provided
-
-
Date of Service: December 23, 2023
CC / HPI / ROS
-
Chief Complaint:
hyponatremia, LOREN
History of Present Illness:
Na with some improvement to 120
LOREN/Cr worse at 3.8
Metabolic acidosis persist
Review of Systems:
no CP/SOB
Urine output not recorded
Weights not record
Labs
-
Labs:
WBC 4.0 10^3/uL (4.8-10.8) L 12/23/23 05:25
RBC 3.01 10^6/uL (4.20-5.40) L 12/23/23 05:25
Hgb 8.1 g/dL (12.0-16.0) L 12/23/23 05:25
Hct 24.6 % (37.0-47.0) L 12/23/23 05:25
Plt Count 228 10^3/uL (130-400) 12/23/23 05:25
Sodium 126 mmol/L (135-145) L 12/23/23 05:25
Potassium 4.2 mmol/L (3.5-5.1) 12/23/23 05:25
Chloride 95 mmol/L (98-107) L 12/23/23 05:25
Carbon Dioxide 21 mmol/L (22-30) L 12/23/23 05:25
BUN 52 mg/dl (7-17) H 12/23/23 05:25
Creatinine 3.8 mg/dL (0.6-1.0) H 12/23/23 05:25
eGFR 11.40 12/23/23 05:25
Glucose 84 mg/dl (70-99) 12/23/23 05:25
Calcium 8.4 mg/dl (8.4-10.2) 12/23/23 05:25
Albumin 3.4 g/dl (3.5-5.0) L 12/18/23 19:57
Physical Exam
-
Vital Signs:
Vital Signs
Temp Pulse Resp BP Pulse Ox
98.9 F 74 14 127/59 97
12/23/23 07:00 12/23/23 07:00 12/23/23 07:00 12/23/23 07:00 12/23/23 07:00
Cardiovascular:: Regular rate and rhythm
Respiratory:: Bilateral: CTA
Lung Excursion:: Normal
Abdomen:: Nontender and Soft
Bowel Sounds:: Normal
Extremity Edema:: +1: Bilateral:
Dee Catheter: No
[2023-12-23] MEDS: FEOSOL 325 MG PO (12:02)
[2023-12-23] MEDS: SAMSCA 7.5 MG PO (12:02)
[2023-12-23 13:30] VITALS: BP 121/52; BP 79/52; BP 97/56; PULSE 73; PULSE 81; O2SAT 92
[2023-12-23 15:00] VITALS: BP 111/51; BP 121/47; BP 121/56; PULSE 69; PULSE 74; PULSE 80
[2023-12-23] MEDS: TRICOR 145 MG PO (20:47)
[2023-12-23] MEDS: NEURONTIN 300 MG PO (20:47)
[2023-12-23 23:58] VITALS: BP 136/64
[2023-12-24 04:46] LABS: Hematocrit 22.9 % (37.0-47.0); Hemoglobin 7.7 g/dL (12.0-16.0); Mean Corp Hgb Conc. 33.6 g/dL (33.0-37.0); Mean Corpuscular Hgb 26.8 pg (27.0-31.0); Mean Corpuscular Volume 79.8 fL (81.0-99.0); Mean Platelet Volume 10.2 fL (7.4-10.4); Platelet Count 244 10^3/uL (130-400); Red Blood Cell Count 2.87 10^6/uL (4.20-5.40); Red Cell Dist. Width 15.2 % (11.5-14.5); White Blood Cell Count 3.2 10^3/uL (4.8-10.8)
[2023-12-24 05:13] LABS: Blood Urea Nitrogen 51 mg/dl (7-17); Calcium 8.5 mg/dl (8.4-10.2); Carbon Dioxide 24 mmol/L (22-30); Chloride 98 mmol/L (98-107); Estimated Creatinine Clearance 11 ml/min; Glucose 76 mg/dl (70-99); Potassium 4.5 mmol/L (3.5-5.1); Sodium 130 mmol/L (135-145)
[2023-12-24 06:00] VITALS: BMI 25.9
[2023-12-24 06:39] LABS: Absolute Neutrophils -Man Diff 1.3 10^3/uL (1.4-6.5); Anisocytosis 1+; Band Neutrophils 0 % (0-3); Eosinophils 11 % (0-6); Hypochromasia Slight; Lymphocytes 33 % (20-51); Monocytes 13 % (2-9); Normal RBC Morphology No; Platelets Checked Yes; Segmented Neutrophils 43 % (42-75); Total Cells Counted 100
[2023-12-24 07:30] VITALS: BP 140/64
[2023-12-24] MEDS: COLACE 100 MG PO ×2 (09:02→21:40)
[2023-12-24] MEDS: ASPIRIN 325 MG PO (09:02)
[2023-12-24] MEDS: KLONOPIN 1 MG PO (09:02)
[2023-12-24] MEDS: PROTONIX 40 MG PO (09:02)
[2023-12-24] MEDS: SALAGEN 5 MG PO ×3 (09:02→21:40)
[2023-12-24] MEDS: SENOKOT 17.2 MG PO ×2 (09:02→21:40)
[2023-12-24] MEDS: COREG 6.25 MG PO ×2 (09:02→21:40)
[2023-12-24] MEDS: VITAMIN B-12 1000 MCG PO (09:02)
[2023-12-24] MEDS: DESENEX/MITRAZOL/ZEASORB 1 APPLIC TOPICAL ×2 (09:03→21:41)
[2023-12-24] MEDS: FEOSOL 325 MG PO (09:03)
--- NOTE | 2023-12-24 11:02 | W.PN.NEPH.PH ---
Today's Communication / Plan
-
DC aspirin
Maintain fluid restrict
BMP tomorrow
Repeat UA today to reassess for blood and protein in possible setting of ANCA mediated vasculitis
Assessment/Plan
-
Assessment
Acute kidney injury (suspeted AIN: secondary to NSAIDs vs Ancef)
hyponatremia chronic
Right knee infection after right knee replacement
Hematuria
Hypotension, relative hypotension
Metabolic acidosis
Anemia
Plan
Hyponatremia with modest improvement to 130 maintain FR, s/p samsca given on 12/22
Creatinine finally unchanged at 3.8 today, remains nonoliguric, hopefully kidney injury is plateauing
Continue bladder scan protocol with low threshold for Dee catheter placement
Urine output not recorded, weights down
AR-3 antibody elevated 155, possibility of ANCA vasculitis noted, may require kidney biopsy
Serial BMP
Holding NSAIDs
renal ultrasound: no hydronephrosis
Now on daptomycin for knee infection
Patient at high clinical risk with renal renal failure and hyponatremia
Unfortunately patient is on aspirin which I will discontinue as she will need aspirin washout before possible renal biopsy performed later this
I did explain to the patient and her daughter however that if her creatinine would continue to improve we will be averting the biopsy
If her creatinine would increase tomorrow then I would likely place her on IV Solu-Medrol pulse steroids for possible underlying ANCA vasculitis process, as biopsy would not be feasible until later next week
I am still hopeful that she may have resolving acute drug interstitial nephritis
Patient and daughter discussion including biopsy possibility HD, and prognosis discussed in detail with patient and at bedside
45 minutes total care time provided
-
-
Date of Service: December 24, 2023
CC / HPI / ROS
-
Chief Complaint:
hyponatremia, LOREN
History of Present Illness:
Na with some improvement to 130 following Samsca administration on 12/23/2019
LOREN/Cr unchanged 3.8
Metabolic acidosis improved
Anemia exacerbating with hemoglobin down to 7 point
Review of Systems:
no CP/SOB
Urine output not recorded but subjectively nonoliguric with negative postvoid bladder scan
Weights down
Labs
-
Labs:
WBC 3.2 10^3/uL (4.8-10.8) L 12/24/23 04:33
RBC 2.87 10^6/uL (4.20-5.40) L 12/24/23 04:33
Hgb 7.7 g/dL (12.0-16.0) L 12/24/23 04:33
Hct 22.9 % (37.0-47.0) L 12/24/23 04:33
Plt Count 244 10^3/uL (130-400) 12/24/23 04:33
Sodium 130 mmol/L (135-145) L 12/24/23 04:33
Potassium 4.5 mmol/L (3.5-5.1) 12/24/23 04:33
Chloride 98 mmol/L (98-107) 12/24/23 04:33
Carbon Dioxide 24 mmol/L (22-30) 12/24/23 04:33
BUN 51 mg/dl (7-17) H 12/24/23 04:33
Creatinine 3.8 mg/dL (0.6-1.0) H 12/24/23 04:33
eGFR 11.40 12/24/23 04:33
Glucose 76 mg/dl (70-99) 12/24/23 04:33
Calcium 8.5 mg/dl (8.4-10.2) 12/24/23 04:33
Albumin 3.4 g/dl (3.5-5.0) L 12/18/23 19:57
Physical Exam
-
Vital Signs:
Vital Signs
Temp Pulse Resp BP Pulse Ox
98.4 F 72 18 140/64 96
12/24/23 07:30 12/24/23 07:30 12/24/23 07:30 12/24/23 07:30 12/24/23 07:30
Cardiovascular:: Regular rate and rhythm
Respiratory:: Bilateral: CTA
Lung Excursion:: Normal
Abdomen:: Nontender and Soft
Bowel Sounds:: Normal
Extremity Edema:: +2: Bilateral:
Dee Catheter: No
--- NOTE | 2023-12-24 11:23 | W.PN.HOSP.TC ---
Today's Communication/Plan
-
daily weight
bmp trend
nephro recs
may require iv steroids
asa stopped
Assessment / Plan
Assessment / Plan
General: Well Developed, Well Nourished and No Apparent Distress
HEENT: NormoCephalic, Moist mucous membranes and Atraumatic
Respiratory: Clear
Cardiac: S1/S2 and Regular Rhythm; No Murmur or Rub
GI: Soft, Non Tender, Non Distended and Normal Bowel Sounds; No Organomegaly
Rectal: Deferred by Provider
Musculoskeletal: No Clubbing, No Cyanosis and No Edema
Skin: R knee scar with steri-strips healing well-no purulent or erythema noted.
Neuro: AO x 3 and Nonfocal/grossly intact
Psych: anxious
#acute renal failure likely from renal (AIN due to ANCEF)
-cr at 3.8 Was 0.7 on 11/21/23
-hold Ancef
-Urine eos at 3%
-Bladder scan protocol -place mosley it with retention
-renal bladder US negative for hydro
-s/p bicarb IVF
-s/p 40mg IV lasix
-PR3 Anca elevated. ?Possibility of AANC vasculitis overlapping wtih Sjogren. Agreee may require renal bx. does have eosinophilia.
-asa stopped
-nephro recs
#Acute on Chronic hyponatremia
-s/p 40mg lasix on 12/21
-s/p samsca on 12/22. Na at 130 now
-trend bmp
#Lightheadedness
-meropenem stopped as one of the S/E is lightheadedness
-Fall precaution
-resolved
#acute blood loss anemia/hxt of CYRIL/Anemia of chronic disease
-hgb 9.2-->7.7
-No luminal bleeding noted. may be some component of dilutional due to IVF and recent blood loss due to surgery
-will continue b12 and iron
-transfuse hgb <7.
#Asymptomatic bacteriuria with pseudomonas
-Culture with only 10K CFU
-not true infection.
#Post-Op Infection following Right Total Knee Replacement
- s/p OR R knee revision/wash out 11/15
- Completed 4 weeks of asa for DVT ppx.
- continue pain control
- cultures grew MSSA.
- PT/OT
- Off meropenem and now started on daptomycin through 12/28. Statin stopped while on dapto.
- ID recs
#Essential Hypertension
- continue carvedilol with hold parameters
#Hyperlipidemia
- continue atorvastatin and fenofibrate
#Anxiety
- continue clonazepam
#DVT prophylaxis-hep sc started
#CODE status
-full code
d/w with spouse at bedside on 12/20
Anticipated Discharge: > 48 hours
Subjective/Interval History
-
Date of Service: December 24, 2023
tolerating diet
states passed alot of urine yesterday
Objective Data
-
Labs:
Laboratory Results
12/24/23
04:33
WBC 3.2 L
Hgb 7.7 L
Hct 22.9 L
Plt Count 244
Sodium 130 L
Potassium 4.5
Chloride 98
Carbon Dioxide 24
BUN 51 H
Creatinine 3.8 H
Glucose 76
Calcium 8.5
Vital Signs:
Vital Signs
Temp Pulse Resp BP Pulse Ox
98.4 F 72 18 140/64 96
12/24/23 07:30 12/24/23 07:30 12/24/23 07:30 12/24/23 07:30 12/24/23 07:30
I&O
12/23/23 12/24/23 12/25/23
06:59 06:59 06:59
Intake Total 1140 / 1140 840 / 840
Balance 1140 / 1140 840 / 840
[2023-12-24 12:24] LABS: Urine Albumin Trace (Neg - Trace); Urine Bilirubin Negative (Negative); Urine Character Clear (Clear); Urine Color Yellow; Urine Glucose Negative (Negative); Urine Ketone Negative (Negative); Urine Leukocyte Trace (Negative); Urine Nitrite Negative (Negative); Urine Occult Blood 1+ (Negative); Urine Urobilinogen Negative (Neg - 1+)
[2023-12-24 13:10] LABS: Urine Squamous Cell 16-20 /LPF (Few)
[2023-12-24 13:11] LABS: Urine Hyaline Cast 0-2 /LPF (0-2); Urine Urothelial Cell 16-20 /LPF (FEW)
[2023-12-24 13:12] LABS: Urine Bacteria Few (Negative)
[2023-12-24] MEDS: CUBICIN 14 MG IV (13:59)
[2023-12-24 15:06] VITALS: BP 131/59
[2023-12-24 15:50] VITALS: BP 127/54
--- NOTE | 2023-12-24 19:32 | VATNOTE ---
Called by [employer]2ee software engineer, pt. c/o, Intermittent pain @ Rt. Picc insertion site. Flushes readily with 10cc NSS. No edema, cord noted. Recommend US to r/o DVT, j2ee software engineer aware, will follow.
[2023-12-24] MEDS: TRICOR 145 MG PO (21:40)
[2023-12-24] MEDS: NEURONTIN 300 MG PO (21:40)
[2023-12-24 23:25] VITALS: BP 131/48
[2023-12-25 06:00] VITALS: BMI 24.8
[2023-12-25 06:13] LABS: Blood Urea Nitrogen 48 mg/dl (7-17); Calcium 8.4 mg/dl (8.4-10.2); Carbon Dioxide 24 mmol/L (22-30); Chloride 100 mmol/L (98-107); Estimated Creatinine Clearance 12 ml/min; Glucose 80 mg/dl (70-99); Potassium 4.5 mmol/L (3.5-5.1); Sodium 131 mmol/L (135-145); eGFR 12.17
[2023-12-25 07:30] VITALS: BP 129/54
[2023-12-25] MEDS: SENOKOT 17.2 MG PO ×2 (08:11→20:17)
[2023-12-25] MEDS: FEOSOL 325 MG PO (08:11)
[2023-12-25] MEDS: SALAGEN 5 MG PO ×3 (08:12→22:24)
[2023-12-25] MEDS: PROTONIX 40 MG PO (08:12)
[2023-12-25] MEDS: COLACE 100 MG PO ×2 (08:12→20:17)
[2023-12-25] MEDS: COREG 6.25 MG PO ×2 (08:12→20:17)
[2023-12-25] MEDS: KLONOPIN 1 MG PO (08:12)
[2023-12-25] MEDS: VITAMIN B-12 1000 MCG PO (08:12)
[2023-12-25] MEDS: DESENEX/MITRAZOL/ZEASORB 1 APPLIC TOPICAL ×2 (08:18→20:17)
--- NOTE | 2023-12-25 09:58 | W.PN.ID1 ---
Date of Service
Date of Service: December 25, 2023
Today's Communication
Continue daptomycin.
Assessment / Plan
Right knee PJI 2* MSSA
- On abx through 12/29/23
LOREN
- ?ATN 2* cefazolin ?pre-renal ?NSAID ?other
- Creatinine remains elevated today
Elevated CRP
Elevated ESR
Osteoarthritis
HTN
Dyslipidemia
Anxiety
Hx bladder CA
Osteopenia
Hx pulmonary mass
Insomnia
Cognitive defects
Hx L1 vertebral fracture
Recommendations:
Continue daptomycin 700 mg q48h through 12/29/2023.
Check baseline CK ok. Hold statin while remains on daptomycin.
Urine culture reveals growth of Pseudomonas aeruginosa, but colony count is 10,000 CFU/mL and not significant. No need to treat.
Workup of LOREN ongoing.
Follow creatinine and estimated creatinine clearance.
����������������������������������������������������������
Chief Complaint
-: Other (Right knee PJI; LOREN)
Subjective / Review of Systems
Review of Systems: No Fever and No Chills
Vital Signs / Physical Exam
Vital Signs
Vital Signs
Temp Pulse Resp BP Pulse Ox
98.4 F 76 18 129/54 97
12/25/23 07:30 12/25/23 07:30 12/25/23 07:30 12/25/23 07:30 12/25/23 07:30
Physical Exam
Constitutional: No Acute Distress, Comfortable and Chronically Ill
Eyes: Sclera Anicteric
Cardiovascular: S1/S2; Negative S3/S4
Pulmonary: Non Labored
Gastrointestinal: Non Distended
Extremities: Other (Right knee with no significant warmth. No drainage or open wounds.)
Skin: Negative Rash or Jaundice
Wound: Other
Neurological: Awake, Alert and Oriented
Psychological: Calm
Objective Data
Lab Data
Lab Results
12/24/23 04:33
12/25/23 05:29
Estimated Creat Clear 12 ml/min 12/25/23 05:29
Lactic Acid < 0.5 mmol/L (0.7-2.0) L 12/18/23 19:57
Total Bilirubin 0.3 mg/dl (0.2-1.3) 12/18/23 19:57
AST 31 U/L (14-36) 12/18/23 19:57
ALT < 10 U/L (0-35) 12/18/23 19:57
Alkaline Phosphatase 64 U/L (38-126) 12/18/23 19:57
C-Reactive Protein 81.70 mg/L (0.0-10.00) H 12/18/23 19:57
Most recent labs reviewed.
Micro Results:
12/18/23 19:57 Blood Culture - Final
Blood/Venous No Growth - Final Report
12/18/23 22:43 Urine Culture - Final
Urine Pseudomonas aeruginosa
12/19/23 05:10 MRSA Screen - Final
Nose No Methicillin Resistant Staphylococcus aureus isolated.
12/20/23
04:35
Fluid Eosinophils 3% eosinophils seen
Imaging:
12/20/2023 Renal ultrasound: No nephrolithiasis or obstructive uropathy noted.
--- NOTE | 2023-12-25 10:16 | W.PN.HOSP.TC ---
Today's Communication/Plan
-
Continue to trend BMP
Continue with IV antibiotic
Out of bed
Nephrology recs
Assessment / Plan
Assessment / Plan
General: Well Developed, Well Nourished and No Apparent Distress
HEENT: NormoCephalic, Moist mucous membranes and Atraumatic
Respiratory: Clear
Cardiac: S1/S2 and Regular Rhythm; No Murmur or Rub
GI: Soft, Non Tender, Non Distended and Normal Bowel Sounds; No Organomegaly
Rectal: Deferred by Provider
Musculoskeletal: No Clubbing, No Cyanosis and No Edema
Skin: R knee scar with steri-strips healing well-no purulent or erythema noted.
Neuro: AO x 3 and Nonfocal/grossly intact
Psych: anxious
#acute renal failure likely from renal (AIN due to ANCEF)
- creatinine 0.7 on 11/21/23. Creatinine today 3.6. Mild downtrend noted.
-hold Ancef
-Urine eos at 3%
-Bladder scan protocol -place mosley it with retention
-renal bladder US negative for hydro
-s/p bicarb IVF
-s/p 40mg IV lasix
-PR3 Anca elevated. ?Possibility of AANC vasculitis overlapping wtih Sjogren. Agree may require renal bx if with no improvement. does have eosinophilia.
-asa stopped
-nephro recs
#Acute on Chronic hyponatremia
-s/p 40mg lasix on 12/21
-s/p samsca on 12/22. Na improving at 131 now
-trend bmp
#Lightheadedness
-meropenem stopped as one of the S/E is lightheadedness
-Fall precaution
-resolved
#acute blood loss anemia/hxt of CYRIL/Anemia of chronic disease
-hgb 9.2-->7.7
-No luminal bleeding noted. may be some component of dilutional due to IVF and recent blood loss due to surgery
-will continue b12 and iron
-transfuse hgb <7.
#Asymptomatic bacteriuria with pseudomonas
-Culture with only 10K CFU
-not true infection.
#Post-Op Infection following Right Total Knee Replacement
- s/p OR R knee revision/wash out 11/15
- Completed 4 weeks of asa for DVT ppx.
- continue pain control
- cultures grew MSSA.
- PT/OT
- Off meropenem and now started on daptomycin through 12/28. Statin stopped while on dapto.
- ID recs
#Essential Hypertension
- continue carvedilol with hold parameters
#Hyperlipidemia
- continue atorvastatin and fenofibrate
#Anxiety
- continue clonazepam
#DVT prophylaxis-hep sc started
#CODE status
-full code
Anticipated Discharge: > 48 hours
Subjective/Interval History
-
Date of Service: December 25, 2023
States of dry mouth
Objective Data
-
Labs:
Laboratory Results
12/25/23
05:29
Sodium 131 L
Potassium 4.5
Chloride 100
Carbon Dioxide 24
BUN 48 H
Creatinine 3.6 H
Glucose 80
Calcium 8.4
Vital Signs:
Vital Signs
Temp Pulse Resp BP Pulse Ox
98.4 F 76 18 129/54 97
12/25/23 07:30 12/25/23 07:30 12/25/23 07:30 12/25/23 07:30 12/25/23 07:30
I&O
12/24/23 12/25/23 12/26/23
06:59 06:59 06:59
Intake Total 840 / 840 1080 / 1080
Balance 840 / 840 1080 / 1080
--- NOTE | 2023-12-25 11:31 | W.PN.NEPH.PH ---
Today's Communication / Plan
-
follow BMP
Assessment/Plan
-
Assessment
Acute kidney injury (suspeted AIN: secondary to NSAIDs vs Ancef)
hyponatremia chronic
Right knee infection after right knee replacement
Hematuria
Hypotension, relative hypotension
Metabolic acidosis
Anemia
Plan
follow BMP
FR continues
follow PVR
Given age, so long as CR settles and stabilizes, we can avoid bx, though this means we would not have a diagnosis. and pt are ok with that scenario
steroids if Cr does not improve
-
-
Date of Service: December 25, 2023
CC / HPI / ROS
-
Chief Complaint:
hyponatremia, LOREN
History of Present Illness:
Na with some improvement to 131
LOREN/Cr down to 3.6
Metabolic acidosis improved
BP stable
Review of Systems:
no CP/SOB
Urine output not recorded but subjectively nonoliguric with negative postvoid bladder scan
Weights down
Labs
-
Labs:
WBC 3.2 10^3/uL (4.8-10.8) L 12/24/23 04:33
RBC 2.87 10^6/uL (4.20-5.40) L 12/24/23 04:33
Hgb 7.7 g/dL (12.0-16.0) L 12/24/23 04:33
Hct 22.9 % (37.0-47.0) L 12/24/23 04:33
Plt Count 244 10^3/uL (130-400) 12/24/23 04:33
Sodium 131 mmol/L (135-145) L 12/25/23 05:29
Potassium 4.5 mmol/L (3.5-5.1) 12/25/23 05:29
Chloride 100 mmol/L (98-107) 07/08/24 05:29
Carbon Dioxide 24 mmol/L (22-30) 12/25/23 05:29
BUN 48 mg/dl (7-17) H 12/25/23 05:29
Creatinine 3.6 mg/dL (0.6-1.0) H 12/25/23 05:29
eGFR 12.17 12/25/23 05:29
Glucose 80 mg/dl (70-99) 12/25/23 05:29
Calcium 8.4 mg/dl (8.4-10.2) 12/25/23 05:29
Albumin 3.4 g/dl (3.5-5.0) L 12/18/23 19:57
Physical Exam
-
Vital Signs:
Vital Signs
Temp Pulse Resp BP Pulse Ox
98.4 F 76 18 129/54 97
12/25/23 07:30 12/25/23 07:30 12/25/23 07:30 12/25/23 07:30 12/25/23 07:30
Cardiovascular:: Regular rate and rhythm
Respiratory:: Bilateral: CTA
Lung Excursion:: Normal
Abdomen:: Nontender and Soft
Bowel Sounds:: Normal
Extremity Edema:: None: Bilateral:
[2023-12-25 16:00] VITALS: BP 136/63
--- NOTE | 2023-12-25 16:28 | CM ---
Patient seen at bedside with sister present. Per sister patient had allowed bed hold to lapse today at [facility]. CM will continue to follow for discharge planning needs.
Plan; SNF
[2023-12-25] MEDS: TRICOR 145 MG PO (22:24)
[2023-12-25] MEDS: NEURONTIN 300 MG PO (22:24)
[2023-12-25 23:00] VITALS: BP 121/49
[2023-12-26 06:00] VITALS: BMI 24.6
[2023-12-26 06:01] LABS: Hematocrit 22.7 % (37.0-47.0); Hemoglobin 7.6 g/dL (12.0-16.0); Mean Corp Hgb Conc. 33.5 g/dL (33.0-37.0); Mean Corpuscular Hgb 27.8 pg (27.0-31.0); Mean Corpuscular Volume 83.2 fL (81.0-99.0); Mean Platelet Volume 10.7 fL (7.4-10.4); Platelet Count 226 10^3/uL (130-400); Red Blood Cell Count 2.73 10^6/uL (4.20-5.40); Red Cell Dist. Width 15.7 % (11.5-14.5); White Blood Cell Count 2.8 10^3/uL (4.8-10.8)
[2023-12-26 06:23] LABS: Blood Urea Nitrogen 43 mg/dl (7-17); Calcium 8.5 mg/dl (8.4-10.2); Carbon Dioxide 23 mmol/L (22-30); Chloride 101 mmol/L (98-107); Estimated Creatinine Clearance 12 ml/min; Glucose 76 mg/dl (70-99); Potassium 4.4 mmol/L (3.5-5.1); Sodium 132 mmol/L (135-145); eGFR 12.59
[2023-12-26 07:00] VITALS: BP 121/53
[2023-12-26] MEDS: SALAGEN 5 MG PO ×3 (07:46→21:23)
[2023-12-26] MEDS: PROTONIX 40 MG PO (07:46)
[2023-12-26] MEDS: FEOSOL 325 MG PO (07:46)
[2023-12-26] MEDS: COREG PO (07:49)
[2023-12-26] MEDS: SENOKOT 17.2 MG PO (07:50)
[2023-12-26] MEDS: COLACE 100 MG PO (07:50)
[2023-12-26] MEDS: KLONOPIN 1 MG PO (07:51)
[2023-12-26] MEDS: VITAMIN B-12 1000 MCG PO (07:51)
[2023-12-26] MEDS: DESENEX/MITRAZOL/ZEASORB 1 APPLIC TOPICAL ×2 (07:55→21:23)
--- NOTE | 2023-12-26 08:21 | W.PN.UPDATE ---
Update Note
Progress Note Update
Patient's contacted the office yesterday to make us aware that the patient was in the hospital. She was scheduled for postop appointment as an outpatient later today. Patient reports that she is doing well. She has little pain in the knee.
She has been working with physical therapy.
Directed exam of right lower extremity reveals a well healed surgical scar to anterior knee. no drainage or erythema. no tenderness to palpation. ROM 0-110. calf soft and nontender. NVI distally
s/p right revision TKA on 11/17/23 under the direction of Dr. Arteaga
-PT/OT
-Continue antibiotics per ID
-Pain management as needed
-Follow up outpatient after discharge from hospital
[2023-12-26 09:56] LABS: COVID-19 Antigen Negative (Negative)
[2023-12-26 10:23] VITALS: BP 124/53
--- NOTE | 2023-12-26 10:57 | W.PN.HOSP.TC ---
Today's Communication/Plan
-
trend bmp
IV dapto
anti-cough meds
nephro recs
Assessment / Plan
Assessment / Plan
General: Well Developed, Well Nourished and No Apparent Distress
HEENT: NormoCephalic, Moist mucous membranes and Atraumatic
Respiratory: Clear
Cardiac: S1/S2 and Regular Rhythm; No Murmur or Rub
GI: Soft, Non Tender, Non Distended and Normal Bowel Sounds; No Organomegaly
Rectal: Deferred by Provider
Musculoskeletal: No Clubbing, No Cyanosis and No Edema
Skin: R knee scar with steri-strips healing well-no purulent or erythema noted.
Neuro: AO x 3 and Nonfocal/grossly intact
Psych: anxious
#acute renal failure likely from renal (AIN due to ANCEF)
- creatinine 0.7 on 11/21/23. Creatinine today 3.5. Mild downtrend noted.
-hold Ancef
-Urine eos at 3%
-Bladder scan protocol -place mosley it with retention
-renal bladder US negative for hydro
-s/p bicarb IVF
-s/p 40mg IV lasix
-PR3 Anca elevated. ?Possibility of AANC vasculitis overlapping wtih Sjogren. Agree may require renal bx if with no improvement. does have eosinophilia.
-asa stopped.
-nephro recs
#Acute on Chronic hyponatremia
-s/p 40mg lasix on 12/21
-s/p samsca on 12/22. Na improving at 132 now
-trend bmp
#Lightheadedness
-meropenem stopped as one of the S/E is lightheadedness
-Fall precaution
-resolved
#acute blood loss anemia/hxt of CYRIL/Anemia of chronic disease
-hgb 9.2-->7.7
-No luminal bleeding noted. may be some component of dilutional due to IVF and recent blood loss due to surgery
-will continue b12 and iron
-transfuse hgb <7.
#Asymptomatic bacteriuria with pseudomonas
-Culture with only 10K CFU
-not true infection.
#Post-Op Infection following Right Total Knee Replacement
- s/p OR R knee revision/wash out 11/15
- Completed 4 weeks of asa for DVT ppx.
- continue pain control
- cultures grew MSSA.
- PT/OT
- Off meropenem and now started on daptomycin through 12/28. Statin stopped while on dapto.
- ID recs
#Essential Hypertension
- continue carvedilol with hold parameters
#Hyperlipidemia
- continue atorvastatin and fenofibrate
#Anxiety
- continue clonazepam
#DVT prophylaxis-hep sc started
#CODE status
-full code
Anticipated Discharge: > 48 hours
Subjective/Interval History
-
Date of Service: December 26, 2023
states of sore throat and cough dry
Objective Data
-
Labs:
Laboratory Results
12/26/23
05:26
WBC 2.8 L
Hgb 7.6 L
Hct 22.7 L
Plt Count 226
Sodium 132 L
Potassium 4.4
Chloride 101
Carbon Dioxide 23
BUN 43 H
Creatinine 3.5 H
Glucose 76
Calcium 8.5
Vital Signs:
Vital Signs
Temp Pulse Resp BP Pulse Ox
98.7 F 74 17 121/53 97
12/26/23 07:00 12/26/23 07:00 12/26/23 07:00 12/26/23 07:00 12/26/23 07:00
I&O
12/25/23 12/26/23 12/27/23
06:59 06:59 06:59
Intake Total 1080 / 7007 840 / 840 120 / 120
Balance 1080 / 1080 840 / 840 120 / 120
[2023-12-26] MEDS: CUBICIN 14 MG IV (11:06)
--- NOTE | 2023-12-26 11:25 | W.PN.NEPH.PH ---
Today's Communication / Plan
-
follow BMP
Assessment/Plan
-
Assessment
Acute kidney injury (suspeted AIN: secondary to NSAIDs vs Ancef)
hyponatremia chronic
Right knee infection after right knee replacement
Hematuria
Hypotension, relative hypotension
Metabolic acidosis
Anemia
Plan
follow BMP
FR continues
Given age, so long as CR settles and stabilizes, we can avoid bx, though this means we would not have a diagnosis. and pt are ok with that scenario
steroids if Cr does not improve
There is a possibility that she has MPA, and treatment for that would include RTX. I do not think she would be too frail to tolerated it in that scenario
-
-
Date of Service: December 26, 2023
CC / HPI / ROS
-
Chief Complaint:
hyponatremia, LOREN
History of Present Illness:
Na with some improvement to 132
LOREN/Cr down to 3.5
Metabolic acidosis improved
BP stable
Review of Systems:
no CP/SOB
Labs
-
Labs:
WBC 2.8 10^3/uL (4.8-10.8) L 12/26/23 05:26
RBC 2.73 10^6/uL (4.20-5.40) L 12/26/23 05:26
Hgb 7.6 g/dL (12.0-16.0) L 12/26/23 05:26
Hct 22.7 % (37.0-47.0) L 12/26/23 05:26
Plt Count 226 10^3/uL (130-400) 12/26/23 05:26
Sodium 132 mmol/L (135-145) L 12/26/23 05:26
Potassium 4.4 mmol/L (3.5-5.1) 12/26/23 05:26
Chloride 101 mmol/L (98-107) 12/26/23 05:26
Carbon Dioxide 23 mmol/L (22-30) 12/26/23 05:26
BUN 43 mg/dl (7-17) H 12/26/23 05:26
Creatinine 3.5 mg/dL (0.6-1.0) H 12/26/23 05:26
eGFR 12.59 12/26/23 05:26
Glucose 76 mg/dl (70-99) 12/26/23 05:26
Calcium 8.5 mg/dl (8.4-10.2) 12/26/23 05:26
Albumin 3.4 g/dl (3.5-5.0) L 12/18/23 19:57
Physical Exam
-
Vital Signs:
Vital Signs
Temp Pulse Resp BP Pulse Ox
98.7 F 74 17 121/53 97
12/26/23 07:00 12/26/23 07:00 12/26/23 07:00 12/26/23 07:00 12/26/23 07:00
Cardiovascular:: Regular rate and rhythm
Respiratory:: Bilateral: Coarse
Lung Excursion:: Normal
Abdomen:: Nontender and Soft
Bowel Sounds:: Normal
Extremity Edema:: None: Bilateral:
--- NOTE | 2023-12-26 12:19 | PTOTSP ---
ST Acute Care Evaluation
Pt presents with mild to moderate xerostomia in the setting of a fluid restriction 2/2 acute kidney dysfunction, which has caused some incidents of dysphagia with pills. Pt currently demonstrates oral, pharyngeal, and esophageal parameters that are
within functional limits for safe PO intake of all solids, liquids, and medications.
Recommendations:
- Continue with regular solids and thin liquids. Request foods that are softer and more moist - ask for items to moisten dryer foods (e.g. broths, gravies, sauces, etc.).
- Medications whole in applesauce - use as much applesauce as needed to get pills down.
- MD to consider revisiting xerostomia medication dose and/or fluid restriction.
- No skilled MACHINE CAGE MAKER services deemed necessary at this time. MACHINE CAGE MAKER to sign off. Please re-consult if needed. Thank you.
--- NOTE | 2023-12-26 13:46 | W.PN.ID1 ---
Date of Service
Date of Service: December 26, 2023
Today's Communication
Continue abx.
Assessment / Plan
Right knee PJI 2* MSSA
- On abx through 12/29/23
LOREN
- ?ATN 2* cefazolin ?pre-renal ?NSAID ?other
- Creatinine appears to have stabilized.
Osteoarthritis
HTN
Dyslipidemia
Anxiety
Hx bladder CA
Osteopenia
Hx pulmonary mass
Insomnia
Cognitive defects
Hx L1 vertebral fracture
Recommendations:
Continue daptomycin 700 mg q48h through 12/29/2023, to be followed by doxycycline 100 mg po qday x 6 mo (+/-) thereafter.
Baseline CK ok. Hold statin while remains on daptomycin.
Urine culture reveals growth of Pseudomonas aeruginosa, but colony count is 10,000 CFU/mL and not significant. No need to treat.
Follow creatinine and estimated creatinine clearance.
����������������������������������������������������������
Chief Complaint
-: Other (Right knee PJI; LOREN)
Subjective / Review of Systems
Review of Systems: No Fever, No Chills and No Joint Pain
Vital Signs / Physical Exam
Vital Signs
Vital Signs
Temp Pulse Resp BP Pulse Ox
98.7 F 74 17 121/53 97
12/26/23 07:00 12/26/23 07:00 12/26/23 07:00 12/26/23 07:00 12/26/23 07:00
Physical Exam
Constitutional: No Acute Distress and Comfortable
Eyes: Sclera Anicteric
Cardiovascular: S1/S2; Negative S3/S4
Pulmonary: Non Labored
Gastrointestinal: Non Distended
Extremities: Other (Right knee with no significant warmth. No drainage or open wounds.)
Skin: Negative Rash or Jaundice
Wound: Other (Right knee incision well-healed. Little significant warmth. No tenderness. No open wound)
Neurological: Awake, Alert and Oriented
Psychological: Calm
Objective Data
Lab Data
Lab Results
12/26/23 05:26
12/26/23 05:26
Estimated Creat Clear 12 ml/min 12/26/23 05:26
Lactic Acid < 0.5 mmol/L (0.7-2.0) L 12/18/23 19:57
Total Bilirubin 0.3 mg/dl (0.2-1.3) 12/18/23 19:57
AST 31 U/L (14-36) 12/18/23 19:57
ALT < 10 U/L (0-35) 12/18/23 19:57
Alkaline Phosphatase 64 U/L (38-126) 12/18/23 19:57
C-Reactive Protein 81.70 mg/L (0.0-10.00) H 12/18/23 19:57
Most recent labs reviewed.
Micro Results:
12/18/23 19:57 Blood Culture - Final
Blood/Venous No Growth - Final Report
12/18/23 22:43 Urine Culture - Final
Urine Pseudomonas aeruginosa
12/19/23 05:10 MRSA Screen - Final
Nose No Methicillin Resistant Staphylococcus aureus isolated.
12/20/23
04:35
Fluid Eosinophils 3% eosinophils seen
Imaging:
12/20/2023 Renal ultrasound: No nephrolithiasis or obstructive uropathy noted.
[2023-12-26 16:00] VITALS: BP 143/65
[2023-12-26] MEDS: COREG 6.25 MG PO (21:22)
[2023-12-26] MEDS: NEURONTIN 300 MG PO (21:23)
[2023-12-26] MEDS: SENOKOT PO (21:23)
[2023-12-26] MEDS: TRICOR 145 MG PO (21:23)
[2023-12-26] MEDS: COLACE PO (21:23)
[2023-12-26 23:38] VITALS: BP 154/70
[2023-12-27 05:45] LABS: Blood Urea Nitrogen 41 mg/dl (7-17); Calcium 8.6 mg/dl (8.4-10.2); Carbon Dioxide 22 mmol/L (22-30); Chloride 102 mmol/L (98-107); Estimated Creatinine Clearance 13 ml/min; Glucose 78 mg/dl (70-99); Potassium 4.2 mmol/L (3.5-5.1); Sodium 133 mmol/L (135-145); eGFR 14.02
[2023-12-27 06:00] VITALS: BMI 24.1
[2023-12-27 07:59] VITALS: BP 127/107
[2023-12-27] MEDS: SENOKOT PO ×2 (08:17→20:26)
[2023-12-27] MEDS: COLACE PO ×2 (08:17→20:26)
[2023-12-27] MEDS: VITAMIN B-12 1000 MCG PO (08:18)
[2023-12-27] MEDS: SALAGEN 5 MG PO ×3 (08:18→21:33)
[2023-12-27] MEDS: PROTONIX 40 MG PO (08:18)
[2023-12-27] MEDS: COREG 6.25 MG PO ×2 (08:18→20:26)
[2023-12-27] MEDS: FEOSOL 325 MG PO (08:18)
[2023-12-27] MEDS: KLONOPIN 1 MG PO (08:18)
[2023-12-27] MEDS: DESENEX/MITRAZOL/ZEASORB 1 APPLIC TOPICAL ×2 (08:19→20:26)
--- NOTE | 2023-12-27 11:11 | W.PN.ID1 ---
Date of Service
Date of Service: December 27, 2023
Today's Communication
Continue abx.
Assessment / Plan
Right knee PJI 2* MSSA
- On abx through 12/29/23
LOREN
- ?ATN 2* cefazolin ?pre-renal ?NSAID ?other
- Creatinine improving. Currently 3.2 today.
Osteoarthritis
HTN
Dyslipidemia
Anxiety
Hx bladder CA
Osteopenia
Hx pulmonary mass
Insomnia
Cognitive defects
Hx L1 vertebral fracture
Recommendations:
Continue daptomycin 700 mg q48h through 12/29/2023, to be followed by doxycycline 100 mg po qday x 6 mo (+/-) thereafter.
Baseline CK ok. Hold statin while remains on daptomycin.
Urine culture reveals growth of Pseudomonas aeruginosa, but colony count is 10,000 CFU/mL and not significant. No need to treat.
Will continue to follow creatinine and estimated creatinine clearance.
����������������������������������������������������������
Chief Complaint
-: Other (Right knee PJI; LOREN)
Subjective / Review of Systems
Review of Systems: No Fever and No Chills
Vital Signs / Physical Exam
Vital Signs
Vital Signs
Temp Pulse Resp BP Pulse Ox
98.3 F 69 17 127/107 94
12/27/23 07:59 12/27/23 07:59 12/27/23 07:59 12/27/23 07:59 12/27/23 07:59
Physical Exam
Constitutional: No Acute Distress, Comfortable and Non-toxic
Eyes: Sclera Anicteric
Cardiovascular: S1/S2; Negative S3/S4
Pulmonary: Non Labored
Gastrointestinal: Non Distended
Extremities: Other (Right knee with no significant warmth. No drainage or open wounds.)
Skin: Negative Rash or Jaundice
Wound: Other (Right knee incision well-healed. Little significant warmth. No tenderness. No open wound)
Neurological: Awake, Alert and Oriented
Psychological: Calm
Objective Data
Lab Data
Lab Results
12/26/23 05:26
12/27/23 04:54
Estimated Creat Clear 13 ml/min 12/27/23 04:54
Lactic Acid < 0.5 mmol/L (0.7-2.0) L 12/18/23 19:57
Total Bilirubin 0.3 mg/dl (0.2-1.3) 12/18/23 19:57
AST 31 U/L (14-36) 12/18/23 19:57
ALT < 10 U/L (0-35) 12/18/23 19:57
Alkaline Phosphatase 64 U/L (38-126) 12/18/23 19:57
C-Reactive Protein 81.70 mg/L (0.0-10.00) H 12/18/23 19:57
Most recent labs reviewed.
Micro Results:
12/18/23 19:57 Blood Culture - Final
Blood/Venous No Growth - Final Report
12/18/23 22:43 Urine Culture - Final
Urine Pseudomonas aeruginosa
12/19/23 05:10 MRSA Screen - Final
Nose No Methicillin Resistant Staphylococcus aureus isolated.
12/20/23
04:35
Fluid Eosinophils 3% eosinophils seen
Imaging:
12/20/2023 Renal ultrasound: No nephrolithiasis or obstructive uropathy noted.
Care Review
Plan reviewed with: Physician (Nephrology)
--- NOTE | 2023-12-27 11:24 | CM ---
Addendum entered by Ibeth Valerio 12/27/23 14:20:
CM spoke to patient , prefer if possible to have patient go home with VN or if not able to go home he would only accept [facility] as SNF. CM will continue to follow for discharge planning needs.
Original Note:
Patient seen at bedside, patient comfortable at this time with no concerns expressed. PT recommending SNF, no OT assessment. Patient would like to return home with VN. CM will reach out to patient family to confirm discharge plan at this time. CM
will continue to follow for discharge planning needs.
Plan; home with VN vs SNF
--- NOTE | 2023-12-27 11:59 | W.PN.HOSP.TC ---
Today's Communication/Plan
-
.
Assessment / Plan
Assessment / Plan
General: No Apparent Distress
HEENT: Normocephalic, Moist mucous membranes and Atraumatic
Respiratory: Clear, limited.
Cardiac: S1/S2
GI: Soft, Non Tender, Non Distended and Normal Bowel Sounds; No Organomegaly
Rectal: no rectal bleeding
Musculoskeletal: No Clubbing, No Cyanosis and No Edema
Skin: R knee scar with steri-strips healing well-no purulent or erythema noted.
Neuro: AO to self and surroundings, forgetful, she followed commands appropriately.
Psych: anxious
#acute renal failure likely from renal (AIN due to ANCEF)
- creatinine 0.7 on 11/21/23. Creatinine today 3.5. Mild downtrend noted.
-held Ancef
-Urine eos at 3%
-Bladder scan protocol -place mosley it with retention
-renal bladder US negative for hydro
-s/p bicarb IVF
-s/p 40mg IV lasix
-PR3 Anca elevated. ?Possibility of AANC vasculitis overlapping with Sjogren. Agree may require renal bx if with no improvement. does have eosinophilia.
-asa stopped.
-nephro recs
#Acute on Chronic hyponatremia
-s/p 40mg Lasix on 12/21
-s/p samsca on 12/22. Na improving
#Lightheadedness
She doesn't report it anymore.
-Fall precaution
-resolved
#acute blood loss anemia/hxt of CYRIL/Anemia of chronic disease
-hgb 9.2-->7.7
-No luminal bleeding noted. may be some component of dilutional due to IVF and recent blood loss due to surgery
-will continue b12 and iron
-transfuse hgb <7.
#Asymptomatic bacteriuria with pseudomonas
-Culture with only 10K CFU
-not true infection.
#Post-Op Infection following Right Total Knee Replacement
- s/p OR R knee revision/wash out 11/15
- Completed 4 weeks of asa for DVT ppx.
- continue pain control
- cultures grew MSSA.
- PT/OT
- Off meropenem and now started on daptomycin through 12/28. Statin stopped while on dapto.
- ID recs
#Essential Hypertension
- continue carvedilol with hold parameters
#Hyperlipidemia
- continue atorvastatin and fenofibrate
#Anxiety
- continue clonazepam
#DVT prophylaxis-hep sc started
#CODE status
-full code
Total time spent to see the patient, examine the patient, review data and lab results, and discuss the treatment plan with patient, nurse around 55 minutes
Anticipated Discharge: 24 - 48 hours
Subjective/Interval History
-
Date of Service: December 27, 2023
No sob
No chest pain
No fevers
Objective Data
-
Labs:
Laboratory Results
12/27/23
04:54
Sodium 133 L
Potassium 4.2
Chloride 102
Carbon Dioxide 22
BUN 41 H
Creatinine 3.2 H
Glucose 78
Calcium 8.6
Vital Signs:
Vital Signs
Temp Pulse Resp BP Pulse Ox
98.3 F 69 17 127/107 94
12/27/23 07:59 12/27/23 07:59 12/27/23 07:59 12/27/23 07:59 12/27/23 07:59
I&O
12/26/23 12/27/23 12/28/23
06:59 06:59 06:59
Intake Total 840 / 840 840 / 840
Balance 840 / 840 840 / 840
--- NOTE | 2023-12-27 13:05 | W.PN.NEPH.PH ---
Today's Communication / Plan
-
Follow BMP
Assessment/Plan
-
Assessment
Acute kidney injury (suspeted AIN: secondary to NSAIDs vs Ancef)
hyponatremia chronic
Right knee infection after right knee replacement
Hematuria
Hypotension, relative hypotension
Metabolic acidosis
Anemia
Plan
follow BMP
Creatinine down to 3.2 and remains grossly nonoliguric
FR continues for hyponatremia
Given age, so long as CR settles and stabilizes, we can avoid bx, though this means we would not have a diagnosis. and pt are ok with that scenario
steroids if Cr does not improve
There is a possibility that she has MPA, and treatment for that would include RTX. I do not think she would be too frail to tolerated it in that scenario
-
-
Date of Service: December 27, 2023
CC / HPI / ROS
-
Chief Complaint:
hyponatremia, LOREN
History of Present Illness:
Na with some improvement to 132
LOREN/Cr down to 3.2
Metabolic acidosis improved
BP stable
Review of Systems:
no CP/SOB
Labs
-
Labs:
WBC 2.8 10^3/uL (4.8-10.8) L 12/26/23 05:26
RBC 2.73 10^6/uL (4.20-5.40) L 12/26/23 05:26
Hgb 7.6 g/dL (12.0-16.0) L 12/26/23 05:26
Hct 22.7 % (37.0-47.0) L 12/26/23 05:26
Plt Count 226 10^3/uL (130-400) 12/26/23 05:26
Sodium 133 mmol/L (135-145) L 12/27/23 04:54
Potassium 4.2 mmol/L (3.5-5.1) 12/27/23 04:54
Chloride 102 mmol/L (98-107) 12/27/23 04:54
Carbon Dioxide 22 mmol/L (22-30) 12/27/23 04:54
BUN 41 mg/dl (7-17) H 12/27/23 04:54
Creatinine 3.2 mg/dL (0.6-1.0) H 12/27/23 04:54
eGFR 14.02 12/27/23 04:54
Glucose 78 mg/dl (70-99) 12/27/23 04:54
Calcium 8.6 mg/dl (8.4-10.2) 12/27/23 04:54
Albumin 3.4 g/dl (3.5-5.0) L 12/18/23 19:57
Physical Exam
-
Vital Signs:
Vital Signs
Temp Pulse Resp BP Pulse Ox
98.3 F 69 17 127/107 94
12/27/23 07:59 12/27/23 07:59 12/27/23 07:59 12/27/23 07:59 12/27/23 07:59
Cardiovascular:: Regular rate and rhythm
Respiratory:: Bilateral: Coarse
Lung Excursion:: Normal
Abdomen:: Nontender and Soft
Bowel Sounds:: Normal
Extremity Edema:: +1: Bilateral:
Dee Catheter: No
[2023-12-27 15:32] VITALS: BP 144/60
[2023-12-27] MEDS: TRICOR 145 MG PO (21:33)
[2023-12-27] MEDS: NEURONTIN 300 MG PO (21:33)
[2023-12-27 23:00] VITALS: BP 135/100
[2023-12-28 05:57] VITALS: BMI 23.8
[2023-12-28 06:10] VITALS: BMI 23.8
[2023-12-28 07:01] LABS: Blood Urea Nitrogen 36 mg/dl (7-17); Calcium 8.6 mg/dl (8.4-10.2); Carbon Dioxide 22 mmol/L (22-30); Chloride 103 mmol/L (98-107); Estimated Creatinine Clearance 15 ml/min; Glucose 76 mg/dl (70-99); Potassium 4.3 mmol/L (3.5-5.1); Sodium 132 mmol/L (135-145); eGFR 15.77
[2023-12-28 07:30] VITALS: BP 128/53
[2023-12-28] MEDS: COLACE 100 MG PO (08:23)
[2023-12-28] MEDS: FEOSOL 325 MG PO (08:24)
[2023-12-28] MEDS: VITAMIN B-12 1000 MCG PO (08:24)
[2023-12-28] MEDS: COREG 6.25 MG PO ×2 (08:24→20:17)
[2023-12-28] MEDS: KLONOPIN 1 MG PO (08:24)
[2023-12-28] MEDS: PROTONIX 40 MG PO (08:24)
[2023-12-28] MEDS: SALAGEN 5 MG PO ×3 (08:25→21:22)
[2023-12-28] MEDS: SENOKOT 17.2 MG PO (08:25)
[2023-12-28 08:26] VITALS: BP 150/62
[2023-12-28] MEDS: DESENEX/MITRAZOL/ZEASORB 1 APPLIC TOPICAL ×2 (10:02→20:18)
[2023-12-28 10:20] VITALS: BP 116/47; PULSE 67; O2SAT 100
[2023-12-28] MEDS: CUBICIN 14 MG IV (11:06)
--- NOTE | 2023-12-28 13:10 | W.PN.NEPH.PH ---
Today's Communication / Plan
-
Follow BMP
Assessment/Plan
-
Assessment
Acute kidney injury (suspeted AIN: secondary to NSAIDs vs Ancef)
hyponatremia chronic
Right knee infection after right knee replacement
Hematuria
Hypotension, relative hypotension
Metabolic acidosis
Anemia
Plan
follow BMP
Creatinine down to 2.9 and remains nonoliguric
Patient will likely be able to leave hospital soon as kidney function continues to improve
FR continues for hyponatremia, will likely restart oral lasix 20mg po daily
Given age, so long as CR settles and stabilizes, we can avoid bx, though this means we would not have a diagnosis. and pt are ok with that scenario
There is a possibility that she has MPA, and treatment for that would include RTX. I do not think she would be too frail to tolerated it in that scenario
Patient will require outpatient rheumatology evaluation
-
-
Date of Service: December 28, 2023
CC / HPI / ROS
-
Chief Complaint:
hyponatremia, LOREN
History of Present Illness:
Na with some improvement to 132
LOREN/Cr down to
Metabolic acidosis improved
BP stable
Review of Systems:
no CP/SOB
weights stable
Labs
-
Labs:
WBC 2.8 10^3/uL (4.8-10.8) L 12/26/23 05:26
RBC 2.73 10^6/uL (4.20-5.40) L 12/26/23 05:26
Hgb 7.6 g/dL (12.0-16.0) L 12/26/23 05:26
Hct 22.7 % (37.0-47.0) L 12/26/23 05:26
Plt Count 226 10^3/uL (130-400) 12/26/23 05:26
Sodium 132 mmol/L (135-145) L 12/28/23 05:26
Potassium 4.3 mmol/L (3.5-5.1) 12/28/23 05:26
Chloride 103 mmol/L (98-107) 12/28/23 05:26
Carbon Dioxide 22 mmol/L (22-30) 12/28/23 05:26
BUN 36 mg/dl (7-17) H 12/28/23 05:26
Creatinine 2.9 mg/dL (0.6-1.0) H 12/28/23 05:26
eGFR 15.77 12/28/23 05:26
Glucose 76 mg/dl (70-99) 12/28/23 05:26
Calcium 8.6 mg/dl (8.4-10.2) 12/28/23 05:26
Albumin 3.4 g/dl (3.5-5.0) L 12/18/23 19:57
Physical Exam
-
Vital Signs:
Vital Signs
Temp Pulse Resp BP Pulse Ox
98.4 F 65 16 128/53 95
12/28/23 07:30 12/28/23 07:30 12/28/23 07:30 12/28/23 07:30 12/28/23 07:30
Cardiovascular:: Regular rate and rhythm
Respiratory:: Bilateral: CTA
Lung Excursion:: Normal
Abdomen:: Nontender and Soft
Bowel Sounds:: Normal
Extremity Edema:: +1: Bilateral:
Dee Catheter: No
--- NOTE | 2023-12-28 13:30 | CM ---
Addendum entered by Ibeth Valerio 12/28/23 15:36:
PT continues to recommend SNF, patient and requested [employer] and narrow base quad cane. PT made aware but patient not trained on quad cane. CM requested scripts for DME from physician.
Original Note:
Patient seen at bedside with patient also present. Patient and state she feels much better and are asking about discharge planning to home. Patient has not indicated VN company at this time. Patient again stated that
if SNF was the recommendation he would want only [facility]. CM sent TT to review patient needs with physician. CM will continue to follow for discharge planning needs.
Plan; home with VN vs [facility]; would need referral
[2023-12-28 15:10] VITALS: BP 141/66
--- NOTE | 2023-12-28 16:12 | W.PN.ID1 ---
Date of Service
Date of Service: December 28, 2023
Today's Communication
Continue antibiotics. See below�
Assessment / Plan
Right knee PJI 2* MSSA
- On abx through 12/29/23
LOREN
- ?ATN 2* cefazolin ?pre-renal ?NSAID ?other
- Creatinine improving. Currently 2.9 today.
Osteoarthritis
HTN
Dyslipidemia
Anxiety
Hx bladder CA
Osteopenia
Hx pulmonary mass
Insomnia
Cognitive defects
Hx L1 vertebral fracture
Recommendations:
Daptomycin 700 mg q48h through 12/29/2023. Given every 48 hour dosing, patient has received dosing for today, which will last through tomorrow.
Tomorrow, will begin doxycycline 100 mg po qday x 6 mo (+/-) thereafter.
Will reinitiate atorvastatin.
Urine culture reveals growth of Pseudomonas aeruginosa, but colony count is 10,000 CFU/mL and not significant. No need to treat.
Will continue to follow creatinine and estimated creatinine clearance.
����������������������������������������������������������
Chief Complaint
-: Other (Right knee PJI; LOREN)
Subjective / Review of Systems
Review of Systems: No Fever and No Chills
Vital Signs / Physical Exam
Vital Signs
Vital Signs
Temp Pulse Resp BP Pulse Ox
97.9 F 67 16 141/66 100
12/28/23 15:10 12/28/23 15:10 12/28/23 15:10 12/28/23 15:10 12/28/23 15:10
Physical Exam
Constitutional: No Acute Distress, Comfortable and Non-toxic
Eyes: Sclera Anicteric
Pulmonary: Non Labored
Gastrointestinal: Non Distended
Musculoskeletal: Negative Joint Swelling or Joint Effusion
Skin: Warm and Dry; Negative Rash or Jaundice
Neurological: Awake and Alert
Psychological: Calm
Objective Data
Lab Data
Lab Results
12/26/23 05:26
12/28/23 05:26
Estimated Creat Clear 15 ml/min 12/28/23 05:26
Lactic Acid < 0.5 mmol/L (0.7-2.0) L 12/18/23 19:57
Total Bilirubin 0.3 mg/dl (0.2-1.3) 12/18/23 19:57
AST 31 U/L (14-36) 12/18/23 19:57
ALT < 10 U/L (0-35) 12/18/23 19:57
Alkaline Phosphatase 64 U/L (38-126) 12/18/23 19:57
C-Reactive Protein 81.70 mg/L (0.0-10.00) H 12/18/23 19:57
Most recent labs reviewed.
Micro Results:
12/18/23 19:57 Blood Culture - Final
Blood/Venous No Growth - Final Report
12/18/23 22:43 Urine Culture - Final
Urine Pseudomonas aeruginosa
12/19/23 05:10 MRSA Screen - Final
Nose No Methicillin Resistant Staphylococcus aureus isolated.
12/20/23
04:35
Urine Eosinophils 3% eosinophils seen
Imaging:
12/20/2023 Renal ultrasound: No nephrolithiasis or obstructive uropathy noted.
Care Review
Plan reviewed with: Physician (Nephrology)
[2023-12-28] MEDS: COLACE PO (20:17)
[2023-12-28] MEDS: SENOKOT PO (20:18)
[2023-12-28] MEDS: TRICOR 145 MG PO (21:22)
[2023-12-28] MEDS: NEURONTIN 300 MG PO (21:22)
[2023-12-28 23:09] VITALS: BP 147/67
[2023-12-29 05:01] LABS: Blood Urea Nitrogen 36 mg/dl (7-17); Calcium 8.9 mg/dl (8.4-10.2); Carbon Dioxide 23 mmol/L (22-30); Chloride 103 mmol/L (98-107); Estimated Creatinine Clearance 17 ml/min; Glucose 76 mg/dl (70-99); Potassium 4.2 mmol/L (3.5-5.1); Sodium 134 mmol/L (135-145); eGFR 17.98
[2023-12-29 06:00] VITALS: BMI 23.1
[2023-12-29 07:18] VITALS: BP 123/57
[2023-12-29] MEDS: VITAMIN B-12 1000 MCG PO (08:43)
[2023-12-29] MEDS: FEOSOL 325 MG PO (08:43)
[2023-12-29] MEDS: KLONOPIN 1 MG PO (08:43)
[2023-12-29] MEDS: SALAGEN 5 MG PO (08:43)
[2023-12-29] MEDS: DESENEX/MITRAZOL/ZEASORB 1 APPLIC TOPICAL (08:43)
[2023-12-29] MEDS: COREG 6.25 MG PO (08:43)
[2023-12-29] MEDS: COLACE PO (08:43)
[2023-12-29] MEDS: PROTONIX 40 MG PO (08:43)
[2023-12-29] MEDS: SENOKOT PO (08:44)
[2023-12-29] MEDS: VIBRAMYCIN 100 MG PO (08:49)
--- NOTE | 2023-12-29 09:53 | W.PN.HOSP.TC ---
Today's Communication/Plan
-
dc
Assessment / Plan
Assessment / Plan
General: No Apparent Distress
HEENT: Normocephalic, Moist mucous membranes and Atraumatic
Respiratory: Clear, limited.
Cardiac: S1/S2
GI: Soft, Non Tender, Non Distended and Normal Bowel Sounds; No Organomegaly
Rectal: no rectal bleeding
Musculoskeletal: No Clubbing, No Cyanosis and No Edema
Skin: R knee scar with steri-strips healing well-no purulent or erythema noted.
Neuro: AO to self and surroundings, forgetful, she followed commands appropriately.
Psych: anxious
#acute renal failure likely from renal (AIN due to ANCEF)
- creatinine 0.7 on 11/21/23. Creatinine came down.
-held Ancef
-Urine eos at 3%
-Bladder scan protocol -place mosley it with retention
-renal bladder US negative for hydro
-s/p bicarb IVF
-s/p 40mg IV lasix
-PR3 Anca elevated. ?Possibility of AANC vasculitis overlapping with Sjogren. Agree may require renal bx if with no improvement. does have eosinophilia.
-asa stopped.
-nephro recs
#Acute on Chronic hyponatremia
-s/p 40mg Lasix on 12/21
-s/p samsca on 12/22. Na improving
#Lightheadedness
She doesn't report it anymore.
-Fall precaution
-resolved
#acute blood loss anemia/hxt of CYRIL/Anemia of chronic disease
-hgb 9.2-->7.7
-No luminal bleeding noted. may be some component of dilutional due to IVF and recent blood loss due to surgery
-will continue b12 and iron
-transfuse hgb <7.
#Asymptomatic bacteriuria with pseudomonas
-Culture with only 10K CFU
-not true infection.
#Post-Op Infection following Right Total Knee Replacement
- s/p OR R knee revision/wash out 11/15
- Completed 4 weeks of asa for DVT ppx.
- continue pain control
- cultures grew MSSA.
- PT/OT
- Off meropenem and now started on daptomycin through 12/28. Statin stopped while on dapto.
- ID recs
#Essential Hypertension
- continue carvedilol with hold parameters
#Hyperlipidemia
- continue atorvastatin and fenofibrate
#Anxiety
- continue clonazepam
#DVT prophylaxis-hep sc started
#CODE status
-full code
Total time spent to see the patient, examine the patient, review data and lab results, and discuss the treatment plan with patient, , nurse around 55 minutes
Anticipated Discharge: Within 24 hours
Subjective/Interval History
-
Date of Service: December 28, 2023
No pain issues
would like to go home
Objective Data
-
Labs:
Laboratory Results
12/29/23
04:27
Sodium 134 L
Potassium 4.2
Chloride 103
Carbon Dioxide 23
BUN 36 H
Creatinine 2.6 H
Glucose 76
Calcium 8.9
Vital Signs:
Vital Signs
Temp Pulse Resp BP Pulse Ox
97.9 F 63 16 123/57 96
12/29/23 07:18 12/29/23 07:18 12/29/23 07:18 12/29/23 07:18 12/29/23 07:18
I&O
12/28/23 12/29/23 12/30/23
06:59 06:59 06:59
Intake Total 1350 / 1350 900 / 900
Balance 1350 / 1350 900 / 900
--- NOTE | 2023-12-29 09:55 | W.PN.HOSP.TC ---
Today's Communication/Plan
-
dc
Assessment / Plan
Assessment / Plan
Physical exam:
General: No Apparent Distress
HEENT: Normocephalic, Moist mucous membranes and Atraumatic
Respiratory: Clear, no rales or wheezes.
Cardiac: S1/S2
GI: Soft, Non Tender, Non Distended and Normal Bowel Sounds; No Organomegaly
Rectal: no rectal bleeding
Musculoskeletal: No Clubbing, No Cyanosis and No Edema
Skin: R knee scar with steri-strips healing well-no purulent or erythema noted.
Neuro: AO to self and surroundings, seems better an dmore alert, she followed commands appropriately.
Psych: anxious
#acute renal failure likely from renal (AIN due to ANCEF)
- creatinine 0.7 on 11/21/23. Creatinine came down.
-held Ancef
-Urine eos at 3%
-Bladder scan protocol -place mosley it with retention
-renal bladder US negative for hydro
-s/p bicarb IVF
-s/p 40mg IV lasix
-PR3 Anca elevated. ?Possibility of AANC vasculitis overlapping with Sjogren. Agree may require renal bx if with no improvement. does have eosinophilia.
-asa stopped.
-nephro recs
#Acute on Chronic hyponatremia
-s/p 40mg Lasix on 12/21
-s/p Samsca on 12/22. Na improving
#Lightheadedness
She doesn't report it anymore.
-Fall precaution
-resolved
#acute blood loss anemia/hxt of CYRIL/Anemia of chronic disease
-hgb 9.2-->7.7
-No luminal bleeding noted. may be some component of dilutional due to IVF and recent blood loss due to surgery
-will continue b12 and iron
-transfuse hgb <7.
#Asymptomatic bacteriuria with pseudomonas
-Culture with only 10K CFU
-not true infection.
#Post-Op Infection following Right Total Knee Replacement
- s/p OR R knee revision/wash out 11/15
- Completed 4 weeks of asa for DVT ppx.
- continue pain control
- cultures grew MSSA.
- PT/OT
- Off meropenem and now started on daptomycin, finished course, now on doxy 100 mg QD. Resumed Statin ( statin stopped while on dapto).
- ID recs
#Essential Hypertension
- continue carvedilol with hold parameters
#Hyperlipidemia
- continue atorvastatin and fenofibrate
#Anxiety
- continue clonazepam
#DVT prophylaxis-hep sc started
#CODE status
-full code
Total discharge time spent to see the patient, examine the patient, review data and lab results, and discuss the discharge plan with patient, , employment evaluator/case manager, nurse around 67 minutes
Anticipated Discharge: Today
Subjective/Interval History
-
Date of Service: December 29, 2023
Note of 12/29/23
Ready to go home
Objective Data
-
Labs:
Laboratory Results
12/29/23
04:27
Sodium 134 L
Potassium 4.2
Chloride 103
Carbon Dioxide 23
BUN 36 H
Creatinine 2.6 H
Glucose 76
Calcium 8.9
Vital Signs:
Vital Signs
Temp Pulse Resp BP Pulse Ox
97.9 F 63 16 123/57 96
12/29/23 07:18 12/29/23 07:18 12/29/23 07:18 12/29/23 07:18 12/29/23 07:18
I&O
12/28/23 12/29/23 12/30/23
06:59 06:59 06:59
Intake Total 1350 / 1350 900 / 900
Balance 1350 / 1350 900 / 900
--- NOTE | 2023-12-29 10:51 | W.PN.NEPH.PH ---
Today's Communication / Plan
-
dc
Assessment/Plan
-
Assessment
Acute kidney injury (suspeted AIN: secondary to NSAIDs vs Ancef)
hyponatremia chronic
Right knee infection after right knee replacement
Hematuria
Hypotension, relative hypotension
Metabolic acidosis
Anemia
Plan
follow BMP in 1 week
FR 48oz/day
no lasix for now
-
-
Date of Service: December 29, 2023
CC / HPI / ROS
-
Chief Complaint:
hyponatremia, LOREN
History of Present Illness:
Na with some improvement to 1324
LOREN/Cr down to 2.6
Metabolic acidosis improved
BP stable
Review of Systems:
no CP/SOB
weights stable
Labs
-
Labs:
WBC 2.8 10^3/uL (4.8-10.8) L 12/26/23 05:26
RBC 2.73 10^6/uL (4.20-5.40) L 12/26/23 05:26
Hgb 7.6 g/dL (12.0-16.0) L 12/26/23 05:26
Hct 22.7 % (37.0-47.0) L 12/26/23 05:26
Plt Count 226 10^3/uL (130-400) 12/26/23 05:26
Sodium 134 mmol/L (135-145) L 12/29/23 04:27
Potassium 4.2 mmol/L (3.5-5.1) 12/29/23 04:27
Chloride 103 mmol/L (98-107) 12/29/23 04:27
Carbon Dioxide 23 mmol/L (22-30) 12/29/23 04:27
BUN 36 mg/dl (7-17) H 12/29/23 04:27
Creatinine 2.6 mg/dL (0.6-1.0) H 12/29/23 04:27
eGFR 17.98 12/29/23 04:27
Glucose 76 mg/dl (70-99) 12/29/23 04:27
Calcium 8.9 mg/dl (8.4-10.2) 12/29/23 04:27
Albumin 3.4 g/dl (3.5-5.0) L 12/18/23 19:57
Physical Exam
-
Vital Signs:
Vital Signs
Temp Pulse Resp BP Pulse Ox
97.9 F 63 16 123/57 96
12/29/23 07:18 12/29/23 07:18 12/29/23 07:18 12/29/23 07:18 12/29/23 07:18
Cardiovascular:: Regular rate and rhythm
Respiratory:: Bilateral: Coarse
Lung Excursion:: Normal
Abdomen:: Nontender and Soft
Bowel Sounds:: Normal
Extremity Edema:: +1: Bilateral:
--- NOTE | 2023-12-29 11:10 | CM ---
met with pat and spouse at bedside.spouse signed imm letter.referral [facility] to [facility] for [facility],pt,ot.TT sent to attending.patient has script for commode and quad cane.plan home with vn.
[2023-12-29 13:30] VITALS: BP 129/69
--- NOTE | 2023-12-29 13:46 | W.DCSUMMARY ---
Discharge Summary
Discharge Data
Date of Admission: 12/18/23
Date of Discharge: 12/29/23
-
Pending Results: No
Hospital Course
83 years old female presented to the emergency room with abnormal blood work from [facility]. Patient had history of total knee replacement in October 2023 and had post operative infection. Patient had knee revision and washout afterwards. Patient
was receiving intravenous Ancef for treatment of methicillin sensitive Staphylococcus aureus infection. Her most recent basic metabolic panel showed an abrupt rise in serum creatinine from 0.86-2.57 and she was sent to the hospital for further
evaluation. She did not have fever or chills. No worsening pain in the knee. Cefazolin was stopped. She was started on meropenem and she was followed by infectious diseases sales consultant residential manager. Patient was diagnosed with acute kidney injury with
possibility of acute interstitial nephritis secondary to either intravenous cephalosporin or nonsteroidal anti-inflammatory drugs. Patient did not have urinary retention. Renal ultrasound did not show obstructive nephropathy. Patient was started
on intravenous fluid with bicarbonate drip. NY-3 ANCA was elevated with possibility of autoimmune process. Forestry Tree Pruner discussed need for renal biopsy with patient and her family. Because of patient's age and comorbidity, the decision was made
to treat kidney failure conservatively and monitor creatinine. Creatinine stabilized and started to trend down. She subsequently had a stabilizing of renal function with creatinine around 2.6 on discharge. She also had acute on chronic
hyponatremia and received tolvaptan. Patient finished the course of IV antibiotics in the hospital.
She subsequently was started on oral doxycycline 100 mg daily. Infectious disease doctor recommended 6 months treatment. Patient was counseled regarding potential side effects of doxycycline including photosensitivity. Patient remained
hemodynamically stable and was discharged in a stable condition to follow-up with nephrology in the outpatient setting. She was given a prescription to repeat the blood work in outpatient setting.
Discharge Plan
-
Patient Disposition: Home with Home Care
Discharge Diagnosis/Procedures: Acute kidney injury
Acute on chronic hyponatremia
Acute blood loss anemia/anemia of chronic disease
Postop right knee infection, completed course of intravenous antibiotic, continue with oral doxycycline. Potential side effects of doxycycline include photosensitivity(avoid direct sun exposure), joint pains, gastrointestinal problems.
Diet: As tolerated
Blood Work: BMP next week
Referrals:
Bereket Cooley DO [Active] - in two to three weeks
Oni Aleman DO [Active] - (As needed )
Tyerse Garland MD [Family Provider] - in one to two weeks
Prescriptions:
New
doxycycline hyclate 100 mg Capsule
100 mg PO DAILY Qty: 30 0RF
Continued
pilocarpine HCl 5 mg Tablet
5 mg PO TID
fenofibrate nanocrystallized 145 mg Tablet
145 mg PO HS Qty: 0
cholecalciferol (vitamin D3) [Vitamin D3] 25 mcg (1,000 unit) Tablet
25 mcg PO DAILY
carvedilol 6.25 mg Tablet
6.25 mg PO BID
atorvastatin 10 mg Tablet
10 mg PO HS
acetaminophen 500 mg Tablet
500 mg PO BID
acetaminophen 500 mg Tablet
1,000 mg PO Q8HPRN MDD 3000 mg PRN (Reason: mild pain)
cyanocobalamin (vitamin B-12) 1,000 mcg Tablet
1,000 mcg PO DAILY Qty: 100 0RF
pantoprazole 40 mg Tablet,Delayed Release (Dr/Ec)
40 mg PO DAILY Qty: 30 0RF
ferrous sulfate [FeroSul] 325 mg (65 mg iron) Tablet
325 mg PO DAILY Qty: 100 0RF
clonazepam 1 mg Tablet
1 mg PO DAILY Qty: 5 0RF
Discontinued
furosemide 20 mg tablet
20 mg PO DAILY Qty: 30 1RF
Patient Comments:
aspirin 325 mg Tablet
325 mg PO DAILY Qty: 30 0RF
docusate sodium 100 mg Capsule
100 mg PO BID Qty: 30 0RF
gabapentin 300 mg Capsule
300 mg PO HS Qty: 30 0RF
sennosides [senna] 8.6 mg Tablet
17.2 mg PO BID
meloxicam 7.5 mg Tablet
7.5 mg PO DAILY
magnesium hydroxide [Milk of Magnesia] 400 mg/5 mL Suspension
30 ml PO [id number] PRN (Reason: no bm 2 days)
bisacodyl [Dulcolax (bisacodyl)] 10 mg Suppository
10 mg NY DAILYPRN PRN (Reason: if no bm 8 hrs after MOM)
trolamine salicylate [Aspercreme] 10 % Cream
1 applic TOPICAL BID
celecoxib 200 mg Capsule
200 mg PO DAILY
Fleet Enema 19-7 gram/118 mL Enema
118 ml NY DAILYPRN PRN (Reason: if no bm 8 hrs after suppository)
Saline Flush 0.9 % solution
10 ml IV TID
Patient Comments:
12/18/23: Use for line patency flush at least once a shift or before and after each medication administration
cefazolin 10 gram recon soln
2 g IV TID
Patient Comments:
12/18/23: starting 11/22/23, take three times a day for 6 weeks, ending on 01/02/24
Rx Instructions:
6 weeks
nystatin 100,000 unit/gram powder
1 applic topical BID
Discharge Orders:
Discharge Patient (As Directed); Ordered 12/29/23
Ordered By: Tom Bauer
Discharge Date and Time
Discharge Date/Time: 12/29/23 13:39
Print Language: DJIBOUTIAN
== END 2023-12-29 13:39 | disposition home health service (06) | DRG 683 ==
LOC: 3 WEST ACU 23:22
PROVIDERS: Clinical Nurse Specialist Family Health; Hospitalist; Registered Nurse; Specialist; ADMITTING PHYSICIAN Hospitalist; ATTENDING PHYSICIAN Internal Medicine; CONSULT PHYSICIAN Internal Medicine Infectious Disease; CONSULT PHYSICIAN Specialist; EMERGENCY PHYSICIAN Emergency Medicine; FAMILY PHYSICIAN Family Medicine
DX: N17.9 Acute kidney failure, unspecified (principal); D62 Acute posthemorrhagic anemia; E87.1 Hypo-osmolality and hyponatremia; E87.20 Acidosis, unspecified; I10 Essential (primary) hypertension; E78.5 Hyperlipidemia, unspecified; F41.9 Anxiety disorder, unspecified; M35.00 Sjogren syndrome, unspecified; R31.9 Hematuria, unspecified
CPT/HCPCS: 71046; 76775; 80048; 80053; 81003; 81015; 81099; 82550; 82570; 82607; 82728; 82746; 83516; 83540; 83550; 83605; 83935; 84300; 85025; 85027; 86140; 86160; 87040; 87070; 87077; 87086; 87186; 87811; 92610; 93971; 97110; 97116; 97162; 97166; 97530; 99285; J0878

== ENCOUNTER → 2024-01-05 12:47 | Outpatient (REF) | payer MEDICARE, OTHER, SELFPAY ==
[2024-01-05 15:16] LABS: Blood Urea Nitrogen 26 mg/dl (7-17); Calcium 9.6 mg/dl (8.4-10.2); Carbon Dioxide 21 mmol/L (22-30); Chloride 97 mmol/L (98-107); Glucose 89 mg/dl (70-99); Potassium 4.8 mmol/L (3.5-5.1); Sodium 132 mmol/L (135-145); eGFR 29.94
== END ==
LOC: REG 12:47
PROVIDERS: ATTENDING PHYSICIAN Internal Medicine; FAMILY PHYSICIAN Family Medicine; REFERRING PHYSICIAN Specialist
DX: N17.0 Acute kidney failure with tubular necrosis (principal)
CPT/HCPCS: 36415; 80048

== ENCOUNTER → 2024-02-05 12:05 | Outpatient (REF) | payer MEDICARE, OTHER, SELFPAY ==
[2024-02-05 13:36] LABS: Blood Urea Nitrogen 21 mg/dl (7-17); Calcium 9.5 mg/dl (8.4-10.2); Carbon Dioxide 19 mmol/L (22-30); Chloride 102 mmol/L (98-107); Glucose 80 mg/dl (70-99); Potassium 3.8 mmol/L (3.5-5.1); Sodium 134 mmol/L (135-145); eGFR 45.48
[2024-02-05 13:37] LABS: % Basophils 1.3 % (0-2); % Eosinophils 3.5 % (0-6); % Immature Granulocytes 0.3 % (0-0.5); % Lymphocytes 25.1 % (20.5-51.1); % Monocytes 9.8 % (1.7-9.3); Absolute Basophils 0.1 10^3/uL (0-0.2); Absolute Eosinophils 0.1 10^3/uL (0-0.7); Absolute Monocytes 0.4 10^3/uL (0.1-0.6); Absolute Neutrophils 2.4 10^3/uL (1.4-6.5); Hematocrit 36.8 % (37.0-47.0); Hemoglobin 12.3 g/dL (12.0-16.0); Mean Corp Hgb Conc. 33.4 g/dL (33.0-37.0); Mean Corpuscular Hgb 26.1 pg (27.0-31.0); Mean Platelet Volume 11.2 fL (7.4-10.4); Nucleated Red Blood Cells % 0 %; Platelet Count 189 10^3/uL (130-400); Red Blood Cell Count 4.72 10^6/uL (4.20-5.40); Red Cell Dist. Width 16.8 % (11.5-14.5)
== END ==
LOC: REG 12:05
PROVIDERS: ATTENDING PHYSICIAN Hospitalist; FAMILY PHYSICIAN Family Medicine
DX: N17.9 Acute kidney failure, unspecified (principal)
CPT/HCPCS: 36415; 80048; 82565; 85025

== ENCOUNTER 2024-03-08 17:53 | Emergency (ER) | payer MEDICARE, OTHER, SELFPAY ==
[2024-03-08 17:56] VITALS: BP 176/76
[2024-03-08 20:42] LABS: Blood Urea Nitrogen 21 mg/dl (7-17); Calcium 9.4 mg/dl (8.4-10.2); Carbon Dioxide 20 mmol/L (22-30); Chloride 100 mmol/L (98-107); Glucose 83 mg/dl (70-99); Potassium 4.1 mmol/L (3.5-5.1); Sodium 132 mmol/L (135-145); eGFR 50.48
--- NOTE | 2024-03-08 20:49 | ED.GENMED ---
History of Present Illness
General
Chief Complaint: Prescription Refill
Source: patient
Exam Limitations: none
Time Seen by Provider: 03/08/24 18:54
Nursing documentation reviewed up to this point in time: agreed with
History of Present Illness
History of Present Illness:
Patient with history of Bladder CA. She follow at [facility]. She had an outppatient abd/pelvis CT today. Radiology had concerns about her lower lung so CT chest with contrast was performed. Multple filling defects RLL segmental pulmonary arteries.
No right heart strain. She was placed on Eliquis by oncologist but patient states they are unable to afford medication. She was sent to our ED for Eliquis starter pack. No other complaints.
Past History
Past History
ED Past Medical History: Cancer (Bladder CA), HTN, Psychiatric (Depression, panic disorder) and Other (Numbness arms and legs, Ovarian cyst, Uterine fibroids. )
ED Past Surgical History: Gynecological (Ovarian cyst, Uterine fibroid removed, oophorectomy), Orthopedic (Spacer in back. right knee replacement with washout due to infection), Tonsilectomy, Urological (Bladder surgery) and Other (cataracts, Left
breast biopsy)
Social History
Tobacco: Former smoker
Alcohol: Occasional
Personal:
Living: penitentiary ([facility])
Review of Systems
Review of Systems
Allergies reviewed?: Yes
All Other Systems: ROS reviewed and negative except as documented in HPI and ROS
Constitutional: Reports no symptoms
EENT: Reports no symptoms
Respiratory: Reports no symptoms
Cardiac: Reports no symptoms
ABD/GI: Reports no symptoms
: Reports no symptoms
Musculoskeletal: Reports no symptoms
Skin: Reports no symptoms
Neurological: Reports no symptoms
Psychiatric: Reports no symptoms
Phy Exam
General Physical Exam
General Presentation: well appearing and no apparent distress
General age: appears stated age
General Skin: warm and dry
General Habitus: normal
Cardiovascular Exam
Cardiovascular Exam: regular rate/rhythm and no edema
Pulmonary Exam
Pulmonary Exam: no respiratory distress and chest non tender
Musculoskeletal Exam
Musculoskeletal Exam: full ROM and neuro vasc intact
Skin Exam
Skin Exam: normal color, warm/dry and no rash
Psychiatric Exam
Psychiatric Exam: normal mood/affect
Course
Orders/Labs/Results
Orders:
Orders
03/08/24 20:04
Basic Metabolic Panel Urgent
Abnormal Lab Results
03/08/24
20:04
Sodium 132 L mmol/L
(135-145)
Carbon Dioxide 20 L mmol/L
(22-30)
BUN 21 H mg/dl
(7-17)
Creatinine 1.1 H mg/dL
(0.6-1.0)
03/08/24 20:04
Vital Signs
Initial and Last Documented VS:
Initial Vital Signs
Temp Pulse Resp BP Pulse Ox
98 F 69 16 176/76 98
03/08/24 17:56 03/08/24 17:56 03/08/24 17:56 03/08/24 17:56 03/08/24 17:56
Last Documented Vital Signs
Temp Pulse Resp BP Pulse Ox
98 F 59 16 173/64 98
03/08/24 17:56 03/08/24 21:08 03/08/24 21:08 03/08/24 21:08 03/08/24 17:56
*Critical Care Note
Total Time (30-74mins, 75-104mins- exclusive of procedures): Not Applicable
Update Note
Update Note:
Patient provider with [employer] for Eliqis starter pack. She was given 1 week supply by her oncologist. Instructed on dosing of eliquis, patient and are agreeable to plan.
ED Attending Note
-
Portions of this chart may have been created with voice recognition software.� Occasional wrong word or��sound alike� substitutions may have occurred due to the inherent limitations of voice recognition software.
Discharge Plan
Departure
Patient Disposition: Home (Routine Discharge)
Date of Disposition: 03/08/24
Time of Disposition: 20:51
Patient with high blood pressure during this ER visit?: No
Condition: Good
Covid-19: Not Applicable
Discharge Problem:
Pulmonary embolism
Instructions: Pulmonary embolism - Discharge instructions
Prescriptions:
New
Eliquis DVT-PE Treat 30D Start 5 mg (74 tabs) tablets,dose pack
See Rx Instructions .ROUTE .COMPLEX Qty: 74 0RF
Rx Instructions:
orally per package directions
No Action
pilocarpine HCl 5 mg Tablet
5 mg PO TID
fenofibrate nanocrystallized 145 mg Tablet
145 mg PO HS Qty: 0
cholecalciferol (vitamin D3) [Vitamin D3] 25 mcg (1,000 unit) Tablet
25 mcg PO DAILY
carvedilol 6.25 mg Tablet
6.25 mg PO BID
acetaminophen 500 mg Tablet
500 mg PO BID
acetaminophen 500 mg Tablet
1,000 mg PO Q8HPRN MDD 3000 mg PRN (Reason: mild pain)
cyanocobalamin (vitamin B-12) 1,000 mcg Tablet
1,000 mcg PO DAILY Qty: 100 0RF
pantoprazole 40 mg Tablet,Delayed Release (Dr/Ec)
40 mg PO DAILY Qty: 30 0RF
ferrous sulfate [FeroSul] 325 mg (65 mg iron) Tablet
325 mg PO DAILY Qty: 100 0RF
clonazepam 1 mg Tablet
1 mg PO DAILY Qty: 5 0RF
doxycycline hyclate 100 mg Capsule
100 mg PO DAILY Qty: 30 0RF
pilocarpine HCl 5 mg tablet
5 mg PO TID Qty: 90 2RF
pravastatin 40 mg tablet
40 mg PO DAILY Qty: 30 0RF
Referrals:
Benitez Zimmerman DO [Family Provider] -
Interventions
Interventions:
*Risk Screen - Suicide Last Done: 03/08/24 17:56
*General Assessment Last Done: 03/08/24 21:08
*Neglect/Abuse Screening Last Done: 03/08/24 21:08
*Nursing Disposition Last Done: 03/08/24 21:08
Discharge Date and Time
Discharge Date/Time: 03/08/24 21:10
Print Language: SAMI
[2024-03-08 21:08] VITALS: BP 173/64
== END 2024-03-08 21:10 | disposition home or self-care (01) ==
LOC: EMR 17:53
PROVIDERS: Nurse Practitioner; EMERGENCY PHYSICIAN Emergency Medicine; FAMILY PHYSICIAN Family Medicine
DX: I26.99 Other pulmonary embolism without acute cor pulmonale (principal); Z87.891 Personal history of nicotine dependence; Z76.0 Encounter for issue of repeat prescription
CPT/HCPCS: 99283; 80048